=== PATIENT | male | born 1985 | race Caucasian/White ===

== ENCOUNTER 2019-12-19 10:20 | Outpatient (CLI) | payer OTHER, SELFPAY ==
--- NOTE | ~2019-12-19 | XR_ITS ---
EXAMINATION: XR chest 2V DATE: 12/19/2019 10:52 INDICATION: Hemoptysis TECHNIQUE: PA and lateral views of the chest are obtained. COMPARISON: None available FINDINGS: The lungs are free of acute opacities. There is no pleural effusion or pneumothorax. The ca rdiomediastinal silhouette is normal. The visualized bones and soft tissues are unremarkable. IMPRESSION: 1. No acute cardiopulmonary abnormality. Reviewed, dictated and finalized at location A.
[2019-12-19 11:32] LABS: Basophils Absolute Auto 0.1 K/mm3 (0.0-0.1); Basophils Percent Auto 0.4 % (0.2-1.2); Eosinophils Absolute Auto 0.3 K/mm3 (0-0.3); Hematocrit 45.9 % (42.0-52.0); Hemoglobin 15.8 g/dL (14.0-18.0); Immature Granulocyte Absolute 0.11 K/mm3 (0.00-0.031); Immature Granulocyte Percent A 0.7 % (0-0.5); Lymphocytes Absolute Auto 1.98 K/mm3 (0.9-3.2); Lymphocytes Percent Auto 12.7 % (18.3-44.2); Mean Corpuscular HGB Conc 34.4 g/dl (32-36); Mean Corpuscular Hemoglobin 30.1 pg (26-34); Mean Corpuscular Volume 87.4 fl (80-100); Mean Platelet Volume 10.6 fl (7.4-10.4); Monocytes Percent Auto 6.1 % (2.6-8.5); Neutrophils Absolute Auto 12.2 K/mm3 (1.3-6.7); Neutrophils Percent Auto 78.1 % (45.5-73.1); Platelet Count Result 282 k/mm3 (150-375); Red Blood Count 5.25 M/mm3 (4.6-6.20); Red Cell Distribution Width 13.1 % (11.5-14.5); White Blood Count 15.7 K/mm3 (4.5-10.0)
[2019-12-19 11:53] LABS: Potassium 4.1 mmol/L (3.4-5.0)
[2019-12-19 12:02] LABS: Alanine Aminotransferase 23 U/L (4-50); Albumin Level 4.2 g/dL (3.5-5.1); Alkaline Phosphatase 80 U/L (38-126); Anion Gap 8 mmol/L (8-16); Aspartate Amino Transferase 28 U/L (17-59); Bilirubin,Total 0.8 mg/dL (0.2-1.3); Blood Urea Nitrogen 13 mg/dL (9-20); Calcium 9.2 mg/dL (8.4-10.2); Carbon Dioxide 23 mmol/L (22-30); Chloride 108 mmol/L (98-107); Estimated Glomerular Filt Rate > 60; Glucose 107 mg/dL (75-110); Sodium 139 mmol/L (137-145)
== END 2019-12-19 10:21 | disposition home or self-care (01) ==
PROVIDERS: PCP Physician Assistant; Visit Provider Physician Assistant
DX: R04.2 Hemoptysis (principal)
CPT/HCPCS: 36415; 71046; 80053; 85025

== ENCOUNTER 2022-02-19 09:04 | Outpatient (CLI) | payer OTHER, SELFPAY ==
--- NOTE | ~2022-02-19 | CT_ITS ---
EXAMINATION: CT brain wo con DATE: 02/19/2022 09:37 INDICATION: Acute persistent daily headache. TECHNIQUE: Computed tomography (CT) of the head was performed without intravenous contrast. The mA wa s adjusted according to patient size. Iterative reconstruction technique was employed. The dose-lengt h product was 605.33 mGy-cm. COMPARISON: None FINDINGS: There is no intracranial hemorrhage, acute infarction, or abnormal intracranial mass lesion . The ventricles are normal in size. The orbits are normal. There is mild mucosal thickening in the p aranasal sinuses. There are surgical changes of the sinuses. The mastoid air cells are normal. IMPRESSION: 1. Normal brain. Reviewed, dictated and finalized at location A. IMPRESSION: 1. Normal brain.
== END 2022-02-19 09:05 | disposition home or self-care (01) ==
LOC: ANHIMG 09:10
PROVIDERS: PCP Physician Assistant; Visit Provider Physician Assistant
DX: G44.52 New daily persistent headache (NDPH) (principal)
CPT/HCPCS: 70450

== ENCOUNTER 2022-07-02 14:50 | Outpatient (CLI) | payer OTHER, SELFPAY ==
--- NOTE | ~2022-07-02 | XR_ITS ---
XR ankle LT 2V 07/02/2022 15:23 Indication: Left ankle pain after injury Procedure: 2 views left ankle Comparison: No prior studies for comparison. Findings: No fracture, subluxation or dislocation. Ankle mortise intact. There is anatomic alignment. No soft tissue abnormality. No foreign bodies. Impression: 1: No significant bone or joint abnormality Reviewed, dictated and finalized at location A. Impression: 1: No significant bone or joint abnormality
--- NOTE | ~2022-07-02 | XR_ITS ---
EXAMINATION: XR lumbar spine 2-3V DATE: 07/02/2022 15:22 INDICATION: Back muscle spasm post injury TECHNIQUE: Anteroposterior and lateral views of the lumbar spine, and cone-down lateral view of the l umbosacral junction were obtained. COMPARISON: None. FINDINGS: Alignment is normal. Vertebral body and disc heights are normal. Asymmetric mild osteoarthritis at th e left sacroiliac joint. Right sacral iliac joint and visualized portions of the bilateral hip joints are normal. Surgical clips in the left pelvis. IMPRESSION: 1. Mild left sacroiliac osteoarthritis. Normal lumbar spine. Reviewed, dictated and finalized at location B.
== END 2022-07-02 14:51 | disposition home or self-care (01) ==
LOC: ANHIMG 14:58
DX: M25.572 Pain in left ankle and joints of left foot (principal); M53.3 Sacrococcygeal disorders, not elsewhere classified
CPT/HCPCS: 72100; 73600

== ENCOUNTER 2022-09-30 08:28 | Outpatient (CLI) | payer OTHER, SELFPAY ==
--- NOTE | ~2022-09-30 | XR_ITS ---
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 . COMPARISON: None available. FINDINGS: Normal mineralization. No fracture or dislocation. No lytic or blastic lesion. Joint space s are maintained. No erosion or periosteal change. Soft tissues within normal limits. IMPRESSION: No acute osseous finding in the right wrist. Reviewed, dictated and finalized at location K.
== END 2022-09-30 08:29 | disposition home or self-care (01) ==
LOC: ANHIMG 08:30
DX: M25.531 Pain in right wrist (principal)
CPT/HCPCS: 73110

== ENCOUNTER 2023-03-22 06:55 | Outpatient (CLI) | payer OTHER, SELFPAY ==
--- NOTE | ~2023-03-22 | US_ITS ---
US thyroid INDICATION: Thyroid nodule TECHNIQUE: Real-time sonographic images of the thyroid gland were obtained. COMPARISON: No prior studies for comparison. FINDINGS: The right thyroid lobe measures 4.1 x 2.1 x 2.3 cm. The left thyroid lobe measures 3.3 x 1 .3 x 1.9 cm. There is heterogeneous echotexture and echogenicity throughout the thyroid gland. In the right lobe there is an oval hypoechoic mass measuring 1.6 x 1.4 x 1.3 cm. This mass is solid, hypoec hoic, wider than tall, smoothly marginated without echogenic foci, TR 4. Normal vascular flow is pres ent. IMPRESSION: 1. Right thyroid mass measuring 1.6 cm, TR 4. Ultrasound-guided fine-needle aspiration biopsy recomm ended. Reviewed, dictated and finalized at location D. R SPECIALIST IMPRESSION: 1. Right thyroid mass measuring 1.6 cm, TR 4. Ultrasound-guided fine-needle as piration biopsy recommended.
== END 2023-03-22 06:56 | disposition home or self-care (01) ==
LOC: CHSIMG 07:00
PROVIDERS: PCP Physician Assistant; Visit Provider Physician Assistant
DX: E04.1 Nontoxic single thyroid nodule (principal)
CPT/HCPCS: 76536

== ENCOUNTER 2023-05-12 14:48 | Outpatient (CLI) | payer OTHER, SELFPAY ==
--- NOTE | 2023-05-12 | ECHO_ITS ---
Patient Info Name: Freddie Arellano Age: 38 years : 1985 Gender: Male Ht: 71 in Wt: 193 lbs BSA: 2.11 m2 HR: 94 bpm BP: 132 / 83 mmHg Heart Rhythm: Sinus Rhythm Technical Quality: Fair Exam Date: 05/12/2023 2:57 PM Exam Location: Echo Lab Patient Status: Outpatient Admit Date: 05/12/2023 Staff Ordering Physician: Buck, Dane PATEL Attending Provider: Buck, Dane PATEL Referring Physician: Jose ARAIZA; Exam Type: CA echo doppler color flow Study Info Indications Z82.49 - Family history of ischemic heart disease and other diseases of the circulatory system R06.00 - Dyspnea, unspecified Complete two-dimensional, color flow and Doppler transthoracic echocardiogram is performed. Summary 1. Complete two-dimensional, color flow and Doppler transthoracic echocardiogram is performed. 2. Left ventricular chamber dimension is normal. 3. Left ventricular systolic function is normal, estimated at 60-65%. 4. There is mildly increased left ventricular wall thickness. 5. The left ventricular diastolic function is grade I diastolic dysfunction. 6. There is mild tricuspid valve regurgitation. Left Ventricle Left ventricular chamber dimension is normal. Left ventricular systolic function is normal, estimated at 60-65%. There is mildly increased left ventricular wall thickness. The left ventricular diastolic function is grade I diastolic dysfunction. Right Ventricle Right ventricular chamber dimension is normal. Right ventricular systolic function is normal. Left Atria Left atrial chamber dimension is normal. Right Atria Right atrial chamber dimension is normal. Atrial Septum Intact interatrial septum visualized by color flow imaging. Aortic Valve The aortic valve is trileaflet. There is mild aortic valve sclerosis. There is no aortic valve stenosis. There is trace aortic valve regurgitation. Pulmonic Valve The pulmonic valve is normal. There is no pulmonic valve stenosis. There is trace pulmonic regurgitation. Mitral Valve The mitral valve has normal leaflets. There is no mitral valve stenosis. There is trace mitral valve regurgitation. Tricuspid Valve The tricuspid valve leaflets are normal. There is no significant tricuspid valve stenosis. There is mild tricuspid valve regurgitation. Pericardium/Pleural The pericardium appears normal. There is no pericardial effusion. Inferior Vena Cava Normal inferior vena cava with >50% collapse upon inspiration consistent with normal right atrial pressure, 5 mmHg. Aorta The aortic root size at the sinus of Valsalva is normal. Left Ventricular Outflow Tract Name Value Normal LVOT 2D LVOT Diameter 2.0 cm LVOT Doppler LVOT Peak Gradient 5 mmHg LVOT Mean Gradient 2 mmHg LVOT VTI 17 cm LVOT VTI/AV VTI Ratio 0.7 LVOT Stroke Volume 56 ml LVOT CO 5.0 l/min LVOT CI 2.4 l/min/m2 Pulmonic Valve Name Value
== END 2023-05-12 14:49 | disposition home or self-care (01) ==
PROVIDERS: PCP Physician Assistant; Visit Provider Physician Assistant
DX: J45.50 Severe persistent asthma, uncomplicated (principal); R93.1 Abnormal findings on diagnostic imaging of heart and coronary circulation; I07.1 Rheumatic tricuspid insufficiency
CPT/HCPCS: 93306

== ENCOUNTER 2024-07-21 01:03 | Emergency (ER) | payer OTHER, SELFPAY ==
--- OUTSIDE RECORDS SUMMARY | 2024-07-21 01:05 | XMS_ITS | Clinical Summary ---
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
--- OUTSIDE RECORDS SUMMARY | 2024-07-21 01:05 | XMS_ITS | Clinical Summary ---
Author Organization [facility] Address [address] [place] [address] Care Team Providers Care Manager Diesel Name Role Phone Dane Jane Primary Care Provider [phone] Allergies Active Allergy Reactions Criticality Noted Date Comments Diphenhydramine Shortness of Breath High 12/05/2018 Penicillins Hives,Unknown Medium 07/17/2018 Sulfa Antibiotics Unknown 07/17/2018 Sulfacetamide Sodium-Sulfur Unknown 12/06/19 19 Medications albuterol sulfate HFA (PROAIR HFA) 108 (90 Base) MCG/ACT inhaler Inhale 2 puffs into the lungs every 4 (four) hours as needed for Shortness of breath or Wheezing. 9 Active tamsulosin 0.4 MG Cap TK 1 C PO AT THE SAME TIME QD AND PC 0 Active nicotine polacrilex 2 MG gum CHEW ONE PIECE PRN TO QUIT SMOKING 0 Active Nebulizers (VIOS AEROSOL DELIVERY SYSTEM) [facility] 9 Active ipratropium-albu terol 0.5-2.5 (3) MG/3ML Solution U 3 ML VIA NEB Q 4 TO 6 H PRN 9 Active dicyclomine 20 MG tablet Take 20 mg by mouth daily. 0 Active ALPRAZolam 1 MG tablet Take 1 mg by mouth 2 (two) times daily. 0 Active sildenafil 50 MG tablet Take 50 mg by mouth. 0 Active LEVOTHYROXINE 150 MCG tabletIndication s:Hypothyroidism , unspecified type TAKE 1 TABLET(150 MCG) BY MOUTH EVERY MORNING 30 tablet 1 0 Active HYDROcodone-acet aminophen (NORCO) 5-325 MG tabletIndication s:Acute Pain < 3 Day Supply Take 1 tablet by mouth every 6 (six) hours as needed for Pain. Indications: Acute Pain < 3 Day Supply 4 tablet 3 Active Active Problems Problem Noted Date Diagnosed Date BMI 21.0-21.9, adult 06/08/2019 Overview (10/10/2019): Last Assessment & Plan: BMI is okay. Normal range is 18-25 and overweight is 25-30. Continue to work on eating healthy and exercising at least 150 minutes per week. Health maintenance examination 06/08/2019 Overview (10/10/2019): PMH: 06/08/2019 Last colonoscopy/cologuard: 03/2019 Last tdap: 11/10/2018 Last Prevnar/pneumovax:2019 Last Shingrix: Last eye exam: Last Assessment & Plan: PMH: 06/08/2019 Last colonoscopy/cologuard: 03/2019 Last tdap: 11/10/2018 Last Prevnar/pneumovax:2018 Last Shingrix: Last eye exam: Requested record Acute kidney injury 05/03/2019 Complication of surgical procedure 05/03/2019 Other hydronephrosis 05/03/2019 Left flank pain 05/03/2019 Hydroureter 05/03/2019 Cystic fibrosis ([facility]) 03/21/2019 Overview (10/10/2019): Last Assessment & Plan: Followed by pulmonary Hemoptysis 10/10/2018 JONES (dyspnea on exertion) 07/17/2018 Cough 07/17/2018 Snoring 07/17/2018 PND (paroxysmal nocturnal dyspnea) 07/17/2018 Witnessed episode of apnea 07/17/2018 Generalized anxiety disorder 07/17/2018 Overview (10/10/2019): Last Assessment & Plan: I explained to patient I would refill the Xanax at 1 mg b.i.d. only until we can get him to see a psychiatrist. Patient needs to not use the medical marijuana while taking the Xanax. Requested records from [place] and [place] I Anxiety 04/07/2018 Syncope and collapse 04/07/2018 Tobacco use 02/10/2018 Overview (10/10/2019): Last Assessment & Plan: Quitting smoking is one of the most important things you can do for your health. Contact 2-222-AGCH-NOW or www.smokefree.gov for more information. Irritable bowel syndrome 02/10/2018 Overview (10/10/2019): Last Assessment & Plan: Stable continue meds Panlobular emphysema ([facility]) 8 Overview (10/10/2019): Last Assessment & Plan: Followed by pulmonary Immunizations Name Administration Dates Next Due Influenza (Generic) 02/10/2018 Influenza Adult (Generic) 01/22/2019 Tdap (Adacel) 11/10/2018 Tdap (Generic) 11/10/2018 Family History Medical History Relation Comments Colon Cancer Father Lung Disease Maternal Grandmother COPD Mother Relation Status Comments Father Maternal Grandmother Mother Alive Social History Tobacco Use Types Packs/Day Years Used Date Smoking Tobacco: Every Day Cigarettes 0.3 26.3 Started: 1998 Smokeless Tobacco: Never Tobacco Cessation:Ready to Q uit: Not Asked; Counseling Given: Not Answered Alcohol Use Standard Drinks/Week Comments No 0 (1 standard drink = 0.6 oz pur e alcohol) AUDIT-C Answer Date Recorded Frequency of Alcohol Consumption Never 07/17/2018 Average Number of Drinks Not on file 019 Frequency of Binge Drinking Not on file 04/2018 Sex and Gender Information Value Date Recorded Sex Assigned at Not on file Legal Sex Male 7:21 PM CDT Gender Identity Not on file Sexual Orientation Not on file Last Filed Vital Signs Vital Sign Reading Time Taken Comments Blood Pressure 120/60 08/13/2023 1:04 PM CDT Pulse 84 08/13/2023 1:04 PM CDT Temperature 36.7 C (98.1 F) 08/13/2023 11:31 AM CDT Respiratory Rate 18 08/13/2023 1:04 PM CDT Oxygen Saturation 99% 08/13/2023 1:04 PM CDT Inhaled Oxygen Concentration - - Weight 83.5 kg (184 lb) 08/13/2023 11:31 AM CDT Height 180.3 cm (5' 11 ) 08/13/2023 11:31 AM CDT Body Mass Index 25.66 08/13/2023 11:31 AM CDT Plan of Treatment Health Maintenance Due Date Last Done Comments Annual Physical 1986 Hepatitis C 2001 Hepatitis B Vaccines (1 of 3 - 19+ 3-dose series) 2002 Pneumococcal Vaccine: Pediatrics (0 to 5 Years) and At-Risk Patients (6 to 64 Years) (2 of 2 - PPSV23 or PCV20) 12/11/2017 10/16/2017 COVID-19 Vaccine (3 - 2023-2 5 season) 2023 09/29/2020, 09/05/2020 Influenza Adult (#1) 2024 02/03/2021, 01/22/2019, 02/10/2018 DTaP, Tdap and Td Vaccines ( 3 - Td or Tdap) 11/10/2028 11/10/2018, 11/10/2018 HPV Vaccines Aged Out No longer eligi ble based on patient's age to complete this topic Meningococcal B Vaccine Aged Out No l onger eligible based on patient's age to complete this topic Meningococcal Vaccine Aged Out No tess tommy eligible based on patient's age to complete this topic RSV Immunizations Under 20 Months Aged Out No longer eligible b ased on patient's age to complete this topic Insurance HURST Member Subscriber Plan / Payer (Ef fective 2019-Present) Name:Freddie Garcia Relation to Subscriber:Self Name:Freddie Garcia Payer ID:[id number] (NAIC) Group ID:Not on file Type:Not on file Address: [place] [id number] Advance Directives Documents on File Type Date Recorded 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 FOR HB BILLS FOR MEDHAT FOR [employer] Legal Documents 07/15/2020 10:09 AM RECVD & CMPLTD ATTY REQ. FOR HB BILLS FOR MEDHAT FOR [employer] Care Teams Manager Diesel Relationship Specialty Start Date End Date Dane Jane PA [address] [place] [address] PCP - General PHYSICIAN DIESEL LOCOMOTIVE FIRER 10/21/20
--- OUTSIDE RECORDS SUMMARY | 2024-07-21 01:05 | XMS_ITS | Clinical Summary ---
Author Organization [facility] Address [address], [place] [address] Phone Care Team Providers Care Male Model Name Role Phone Dane Jane Primary Care Provider [phone] Allergies Active Allergy Reactions Criticality Noted Date Comments Penicillins Unknown 12/19/2018 Sulfa Antibiotics Unknown 12/19/2018 Medications dicyclomine (BENTYL) 10 MG Capsule TK 1 C PO TID 3 05/10/2018 Active levothyroxine (SYNTHROID) 75 MCG Tablet TK 1 T PO QD IN THE MORNING OES 3 05/06/2018 Active propranolol (INDERAL) 10 MG Tablet TK 2 TS PO TID 0 08/04/2018 Active buPROPion SR (WELLBUTRIN SR) 150 MG TABLET SR 12 HR Take 150 mg by mouth 2 times daily. Active fluticasone (FLONASE) 50 MCG/ACT Suspension 1-2 Sprays by Nasal route daily. Use in each nostril as directed. Active Cetirizine HCl (ZYRTEC PO) Take by mouth. 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 Gender Identity Not on file Sexual Orientation Not on file Last Filed Vital Signs Vital Sign Reading Time Taken Comments Blood Pressure - - Pulse - - Temperature - - Respiratory Rate - - Oxygen Saturation - - Inhaled Oxygen Concentration - - Weight - - Height 180.3 cm (5' 11 ) 12/19/2018 11:32 AM CDT Body Mass Index - - Plan of Treatment Health Maintenance Due Date Last Done Comments Hepatitis C Virus (HCV) Screening 1985 Hepatitis B Immunization (1 of 3 - 19+ 3-dose series) 2002 Influenza Immunization (#1) 12/18/202301/16, 01/22/2019, 02/10/2018 SARS-COV-2 Immunization (2023- season) 2023 09/29/2020, 09/05/2020 Respiratory Syncytial Virus (RSV) Immunization (Adult) (1 - 1-dose 75+ series) 2058 Pneumococcal Immunization Combined Aged Out 10/16/2017 No longer eligible based on patient's age to complete this topic DTaP/Tdap/Td Immunization Discontinued 11/10/2018 TdaP Immunization Completed 11/10/2018 Meningococcal Immunization (ACWY) Aged Out No longer eligible based on patient's age to complete this topic Rotavirus Immunization Aged Out No lo nger eligible based on patient's age to complete this topic Insurance MEDICAID [employer] Care Teams Male Model Relationship Specialty Start Date End Date Dane Jane PAC [address] [place] [address] PCP - General Physician Substance Abuse Prevention Coordinator 05/01/21
--- OUTSIDE RECORDS SUMMARY | 2024-07-21 01:05 | XMS_ITS | Encounter Summary ---
Author Organization [facility] Health Address [address] [place] [address] Care Team Providers Care Rn Clinical Trials Name Role Phone Anali Mccann APRN-ASSOCIATE DOCTOR Primary Care Provider + Anali Mccann APRN-ASSOCIATE DOCTOR Primary Care Provider + Dane Jane Primary Care Provider [phone] Reason for Visit * Reason Onset Date Comments Instructions 03/30/2019 Left VM message for withholding respiratory medications prior to Methacholine Challenge testing - VGall; CPFT; ACCESS SERVICES REPRESENTATIVE Encounter Details Date Type Department Care Team (Late st Contact Info) Description 03/30/2019 Telephone [facility] [address] [place] [id number] Argelia Oden RCP Instructions (Left VM message for withholding respiratory medications prior to Methacholine Challenge testing - VGall; CPFT; ACCESS SERVICES REPRESENTATIVE) Social History Tobacco Use Types Packs/Day Years Used Date Smoking Tobacco: Smoker, Current Status Unknown Cigarettes Smokeless Tobacco: Never Comments:1 pack a week Alcohol Use Standard Drinks/Week Comments No 0 (1 standard drink = 0.6 oz pur e alcohol) Sex and Gender Information Value Date Recorded Sex Assigned at Male 04/05/2022 9:34 PM PART TIME RECEPTIONIST Gender Identity Male 04/05/2022 9:34 PM PART TIME RECEPTIONIST Sexual Orientation Straight 04/05/2022 9: 34 PM PART TIME RECEPTIONIST documented as of this encounter Plan of Treatment Not on file documented as of this encounter Visit Diagnoses Not on filedocumented in this encounter Care Teams Rn Clinical Trials Relationship Specialty Start Date End Date Anali Mccann APRN-CNP PCP - General 01/12/19 12/24/19 Anali Mccann APRN-CNP [address] [place] [address] PCP - General 12/25/19 01/17/20 Dane Jane PA [address] [place] [address] PCP - General 01/18/20 documented as of this encounter
--- OUTSIDE RECORDS SUMMARY | 2024-07-21 01:05 | XMS_ITS | Continuity of Care Document ---
Author Organization [facility] Address [address] [place] [address] Phone Care Team Providers Care Curator Name Role Phone Lisa Boyd MD Unavailable Unavailabl e Allergies, Adverse Reactions, Alerts Substance Reaction Status Criticality Sulfa (Sulfonamide Antibiotics) Other Active No Information Penicillins Other Active No Information Advance Directives Directive Yes / No Effective Date File Name No Information Encounters Encounter Description Practice Location Reason(s) For Visit Diagnoses Date Provider Providers Copied on Encounter [facility], [address], [place], [place], [id number], tel:[phone] [facility] No Information Oliver Gonzalez. [address], [id number]. tel:[phone] [facility], [address], [place], [place], [id number], tel:[phone] [facility] DIARRHEA Oliver Gonzalez. [address], [id number]. tel:[phone] Family History Family Member Type Diagnosis Age At Onset No Information Payers Payer name Insurance type Covered republican [...]
--- OUTSIDE RECORDS SUMMARY | 2024-07-21 01:05 | XMS_ITS | Encounter Summary ---
Author Organization [facility] Health Address [address] [place] [place] [address] Care Team Providers Care Contour Path Tape Mill Operator Name Role Phone Dane Jane Primary Care Provider Reason for Visit * Reason Onset Date Comments Order 02/22/2020 Encounter Details Date Type Department Care Team (Late st Contact Info) Description 02/22/2020 Telephone [facility] [address] [place] [id number] Ru Livingston MD [address] OF [address]MON[facility] [address] Order Social History Tobacco Use Types Packs/Day Years Used Date Smoking Tobacco: Some Days Cigarettes 0.1 25.3 Started: 1999 Smokeless Tobacco: Never Comments:2-3 cigarettes a da y at most Alcohol Use Standard Drinks/Week Comments No 0 (1 standard drink = 0.6 oz pur e alcohol) Sex and Gender Information Value Date Recorded Sex Assigned at Male 04/05/2022 9:34 PM CLOTH CUTTER Gender Identity Male 04/05/2022 9:34 PM CLOTH CUTTER Sexual Orientation Straight 04/05/2022 9: 34 PM CLOTH CUTTER documented as of this encounter Functional Status Functional Status Response Date of Assess ment Is person deaf or have serious hearing difficult y? No 05/06/2019 Is person blind or have serious difficulty seein g? No 05/06/2019 Does person have serious dif ficulty walking/climbing stairs? Yes 05/06/2019 Does person have difficulty dressing/bathing? No 05/06/2019 Does person have difficulty doing errands alone? Yes 05/06/2019 Cognitive Status Response Date of Assessm ent Does person have difficulty concentrating/remembering/making decisions? No 05/06/2019 documented as of this encounter Miscellaneous Notes * Telephone Encounter - Ru Livingston MD - 02/22/2020 2:44 PM CLOTH CUTTER PATIENT COMMUNICATION NOTE Dear Ms. Sullivan: Please let Mr. Freddie Arellano know that I have ordered him a home sleep apnea test instead of an in-laboratory PSG. He has a history of cystic fibrosis but his spirometry (lung function) was still within normal limits, so a home sleep apnea test should be an appropriate first diagnostic step. Please let me know if there is anything else I can assist you with. Take care, Ru Livingston MD, [facility], [facility], [facility] Polishing Pad Mounter, [facility] Professor of Internal Medicine Adjunct Problem Manager of Neurology Division of Pulmonary, Critical Care, and Sleep Medicine [facility] ===View-only below this line=== ----- Message ----- From: Gwendolyn Sullivan Sent: 02/22/2020 2:16 PM CLOTH CUTTER To: Ru Livingston MD H CUTTER * Telephone Encounter - Gwendolyn Sullivan - 02/22/2020 2:15 PM CST Patient is asking if he can preform an HSt instead of a PSG? H CUTTER documented in this encounter Plan of Treatment Not on file documented as of this encounter Visit Diagnoses Not on filedocumented in this encounter Care Teams Contour Path Tape Mill Operator Relationship Specialty Start Date End Date Dane Jane PA [address] [place] [address] PCP - General 01/18/20 documented as of this encounter
--- OUTSIDE RECORDS SUMMARY | 2024-07-21 01:05 | XMS_ITS | Clinical Summary ---
Author Organization [facility] [email or web address] Address [address] [place] [address] Care Team Providers Care Railcar Switcher Name Role Phone Dane Jane Primary Care Provider [phone] Source Comments [facility],non-owned Affiliates and Associated Physician Practices is amultiple site organization consisting of ambulatory clinics and hospital sitesin [place], [place], [place] and [place]. This disclosure is being madepursuant to the Care Everywhere program and may not contain all information available regarding this patient. Last updated 18.[facility] Allergies Active Allergy Reactions Criticality Noted Date Comments Food Shortness of Breath High 05/11/2023 onions Penicillins Urticaria,Unknown Medium 07/17/2018 Sulfa Drugs Unknown 07/17/2018 Sulfacetamide Sodium-Sulfur Unknown 12/06/19 19 Medications * Be aware that medications may not be up to date on this document. Alwaysverify current medications with the patient. Medication Sig Dispensed Refills Start Date End Date Status ALPRAZolam (XANAX) 1 MG tablet Take 1 (one) tablet by mouth 2 times daily 06/08/2019 Active EPINEPHrine (EPIPEN) 0.3 MG/0.3ML auto-injector pen Inject 0.3 mL into muscle once as needed 07/20/2019 Active naproxen (Naprosyn) 500 MG tablet Take 1 (one) tablet by mouth 2 times daily Active gabapentin (Neurontin) 300 MG capsuleIndication s:Paresthesia,Num bness in feet,Numbness in both hands,Migraine without aura and without status migrainosus, not intractable,Daily headache Take 1 (one) capsule by mouth at bedtime 30 capsule 5 01/23/2024 Active Additional Information Patient not taking.Reported on 07/12/2024 levothyroxine (Synthroid) 112 MCG tablet Take 1 (one) tablet by mouth once daily 03/21/2024 03/21/2025 Active ALPRAZolam (Xanax) 2 MG tablet Take 1 (one) tablet by mouth 2 times daily as needed 02/27/2024 Active omeprazole (PriLOSEC) 20 MG capsule Take 1 (one) capsule by mouth once daily 30 capsule 03/30/2024 Active Additional Information Patient not taking.Reported on 07/12/2024 sildenafil (Viagra) 100 MG tablet TAKE 1 TABLET BY MOUTH EVERY DAY NEEDED FOR ERECTILE DYSFUNCTION 30 tablet 05/10/2024 Active topiramate (Topamax) 50 MG tabletIndications :Chronic daily headache Take 1 (one) tablet by mouth at bedtime 30 tablet 4 05/25/2024 Active Active Problems Problem Noted Date Diagnosed Date Chest pain 06/02/2023 Severe persistent asthma without complication Hydroureter 05/03/2019 Complication of surgical procedure 05/03/2019 Left flank pain 05/03/2019 Acute kidney injury 05/03/2019 Other hydronephrosis 05/03/2019 Hemoptysis 10/10/2018 Tobacco use 07/17/2018 Witnessed episode of apnea 07/17/2018 PND (paroxysmal nocturnal dyspnea) 07/17/2018 JONES (dyspnea on exertion) 07/17/2018 Anxiety and depression 07/17/2018 Anxiety 04/07/2018 Syncope and collapse 04/07/2018 Irritable bowel syndrome 04/07/2018 Hyperthyroidism 04/07/2018 Nasal septal deviation Nasal turbinate hypertrophy Nasal obstruction Chronic ethmoidal sinusitis Resolved Problems Problem Noted Date Diagnosed Date Resolved Date Cystic fibrosis 03/21/2019 08/19/2020 Chronic bronchitis with prod uctive mucopurulent cough 10/10/2018 12/04/2018 Pulmonary emphysema 04/07/2018 12/25/19 20 Cough 04/07/2018 04/02/2019 Encounters Date Type Department Care Team Description 07/19/2024 3:30 PM CDT Office Visit [facility] - Urology [address] [place] [address] Rd [address] [place] [address] Mary Acuna, CATY-STARLA Erectile dysfunction, unspecified erectile dysfunction type (Primary Dx) 07/19/2024 Travel 07/12/2024 8:00 AM CDT Office Visit [facility] - Urology [address] [facility] [address] [place] [address] Klaudia Cho DO Decreased sensation (Primary Dx); Erectile dysfunction, unspecified erectile dysfunction type; Pain in right testicle 07/12/2024 7:30 AM CDT - 07/12/2024 11:59 PM CDT Hospital Encounter [facility] [address] [place] [address] Klaudia Cho DO Urology Discharge Disposition: Home or Self Care 07/12/2024 Travel 05/25/2024 12:05 PM INSURANCE POLICY CLERK - 05/25/2024 11:59 PM INSURANCE POLICY CLERK Hospital Encounter [facility] DRAW [facility] [address] [place] [address] Lisa Mercado, HEAD OPERATOR-WOOD STAINER Discharge Disposition: Home or Self Care 05/25/2024 12:04 PM INSURANCE POLICY CLERK Hospital Encounter [facility]IC RAD OP [facility] [place] [address] iLsa Mercado, HEAD OPERATOR-WOOD STAINER Discharge Disposition: Home or Self Care 05/25/2024 11:30 AM INSURANCE POLICY CLERK Office Visit [facility] - Neurology [address] [place] [phone] Lisa Mercado HEAD OPERATOR-WOOD STAINER Delmy Renee, HEAD OPERATOR-WOOD STAINER Chronic daily headache (Primary Dx); Rebound headache; Medication overuse headache 05/25/2024 11:00 AM INSURANCE POLICY CLERK Office Visit [facility] - Neurosurgery [address] [place] [phone] Lisa Mercado, HEAD OPERATOR-WOOD STAINER Kristopher Betancourt MD Cervical disc herniation (Primary Dx); Chronic neck pain 05/25/2024 Travel 05/10/[address] [facility] - [facility]rology [address] [facility] [place] [address] Klaudia Cho DO Refill Request from Last 3 Months Immunizations Name Administration Dates Next Due Covfelihsa Ocean Aero primary monoval ent 12+ yr 0.3mL Purple cap 09/29/2020,09/05/2020 INFLUENZA VACCINE 02/10/2018 INFLUENZA VACCINE, HIGH-DOSE , TRIV. (FLUZONE HIGH-DOSE TRIVALENT; 65Y+) (HD-IIV3) 01/23/2024 INFLUENZA VACCINE, QUADR. (A FLURIA, FLUZONE QUADRIVALENT; 6MO+) (IIV4) 02/03/2021 INFLUENZA VACCINE, QUADR. (F LUZONE; FLULAVAL; FLUARIX; AFLURIA QUADRIVALENT; 6MO+), 0.5 ML (IIV4) 01/22/2019 PNEUMOCOCCAL PCV20 CONJ VAC IM 01/23/2024 Pneumococcal Pcv13 Conj 10/16/2017 TDAP (7yrs+) 11/10/2018 Family History Medical History Relation Name Comments Thyroid Disease Brother Hypothyroidi sm Cancer - Colon Father Cancer - Prostate Father Cancer Mother Thyroid Other - Cardiac Sister Relation Name Status Comments Brother Alive Father Other Mother Alive Sister Alive Social History Tobacco Use Types Packs/Day Years Used Date Smoking Tobacco: Some Days Cigarettes 0.1 25.3 Started: 1999 Smokeless Tobacco: Never Tobacco Cessation:Ready to Q uit: Yes; Counseling Given: Yes Comments:1 pack of cigs last about a week and a half Alcohol Use Standard Drinks/Week Comments No 0 (1 standard drink = 0.6 oz pur e alcohol) AUDIT-C Answer Date Recorded Q1: How often do you have a drink containing alcohol? Never 05/23/2023 Q2: How many drinks containi ng alcohol do you have on a typical day when you are drinking? Patient does not drink Q3: How often do you have si x or more drinks on one occasion? Never 05/23/2023 Sex and Gender Information Value Date Recorded Sex Assigned at Male 04/05/2022 9:34 PM INSURANCE POLICY CLERK Gender Identity Male 04/05/2022 9:34 PM INSURANCE POLICY CLERK Sexual Orientation Straight 04/05/2022 9: 34 PM INSURANCE POLICY CLERK Last Filed Vital Signs Vital Sign Reading Time Taken Comments Blood Pressure 118/76 07/19/2024 3:49 PM CDT Pulse 68 07/19/2024 3:49 PM CDT Temperature 36.8 C (98.3 F) 07/19/2024 3:49 PM CDT Respiratory Rate 18 07/19/2024 3:49 PM CDT Oxygen Saturation 96% 07/19/2024 3:49 PM CDT Inhaled Oxygen Concentration 21% 05/23/2023 5 :30 PM INSURANCE POLICY CLERK Weight 82.1 kg (181 lb) 07/19/2024 3:49 PM CDT Height 180.3 cm (5' 11 ) 07/19/2024 3:49 PM CDT Body Mass Index 25.24 07/19/2024 3:49 PM CDT Plan of Treatment Health Maintenance Due Date Last Done Comments HIV SCREENING 1998 HEPATITIS C SCREENING 04/25/2001 HEPATITIS B VACCINE (1 of 3 - 19+ 3-dose series) 2002 COVID-19 VACCINE (2023- season) 2023 09/29/2020, 09/05/2020 DEPRESSION SCREENING 04/18/2024 LIPID TESTING 11/22/2024 11/23/2019, 11/23/2019 SCREENING FOR DIABETES 01/30/2027 , 03/05/2020, 05/07/2019, Additional history exists DTAP/TDAP/TD VACCINES (2 - Td or Tdap) 11/10/2028 11/10/2018 ZOSTER VACCINE (1 of 2) 2033 INFLUENZA VACCINE Completed 01/23/2024, , 01/22/2019, Additional history exists PNEUMOCOCCAL VACCINE Completed 01/23/2024, 10/17/19 18 HIB VACCINE Aged Out No longer eligi ble based on patient's age to complete this topic HPV VACCINE Aged Out No longer eligi ble based on patient's age to complete this topic MENINGOCOCCAL (Group B) VACCINE SHARED DECISION-MAKING Aged Out No longer eligible based on patient's age to complete this topic MENINGOCOCCAL GROUPS A/C/Y/W VACCINE Aged Out No longer eligible based on patient's age to complete this topic Medical Devices Implanted Type Area Aircraft Captain Device Identifier Shelf Expiration Date Model / Serial / Lot Stent Uret 6fr 28cm Pgtl Crv Tpr Tip Implanted:Qty: 1 on 05/05/2019 by Klaudia Cho DO at [facility] Left: Dwayne Ulloa Scimed 03/04/2022 [id number] / / [id number] Procedures Procedure Name Priority Date/Time Associated Diagnosis Comments [place] INJECT CORPORA CAVERN,PHARM AGNT Routine 07/19/2024 4:19 PM CDT Erectile dysfunction, unspecified erectile dysfunction type TESTOSTERONE TOTAL Routine 07/12/2024 7: 43 AM CDT Erectile dysfunction, unspecified erectile dysfunction type XR CERVICAL SPINE 4 OR 5VW Routine 05/25/2024 12:22 PM INSURANCE POLICY CLERK Cervical disc herniation T4 FREE Routine 05/25/2024 12:09 PM INSURANCE POLICY CLERK Nasal turbinate hypertrophy TSH REFLEX FREE T4 Routine 05/25/2024 12 :09 PM INSURANCE POLICY CLERK Nasal turbinate hypertrophy HEMOGLOBIN A1C Routine 01/31/2024 2:46 PM CDT Paresthesia Numbness in feet Numbness in both hands Migraine without aura and without status migrainosus, not intractable Daily headache from Last 3 Months or Most Recently Relevant to Health Maintenance Results * [place] INJECT CORPORA CAVERN,PHARM AGNT (07/19/2024 4:19 PM CDT) Narrative Mary Acuna APRN-CNP - 07/19/2024 4:19 PM CDT Mary Acuna APRN-CNP 07/19/2024 4:20 PM Patient here to start trimix injection therapy. We reviewed risks and benefits and safety issues regarding trimix. Procedure: The penis was prepped with alcohol. An insulin syringe was was to inject 0.15cc of trimix. Patient had a partial response after 5-10 minutes. Continue with trimix prn sex. Inject 0.2ml. Patient taught how to inject and given instruction manual. He knows to return to ER with painful erections lasting longer than 4 hours. Mary T Acuna, HEAD OPERATOR-WOOD STAINER Mary Acuna HEAD OPERATOR-WOOD STAINER PROCEDURE/MINOR SURGICAL ORDERABLES * TESTOSTERONE TOTAL (07/12/2024 7:43 AM CDT) Testosterone 552 240 - 871 ng/dL 07/12/2024 8:41 AM CDT [facility] Blood BLOOD SPECIMEN / Unknown Lab Venipuncture / Unknown 07/12/2024 7:43 AM CDT 07/12/2024 7:44 AM CDT Klaudia Edyta Cho DO LAB - CHEMISTRY OR DERABLES [facility] [address] [place] [place] [id number] * XR Cervical Spine 4 or 5Vw (05/25/2024 12:22 PM INSURANCE POLICY CLERK) Anatomical Region Laterality Modality Spine Digital Radiogra phy 05/25/2024 2:57 PM INSURANCE POLICY CLERK Impressions 05/25/2024 2:58 PM INSURANCE POLICY CLERK IMPRESSION: No acute fracture or dislocation. > Interpreting Provider: Lázaro Palma on 05/25/2024 2:58 PM Narrative 05/25/2024 2:58 PM INSURANCE POLICY CLERK PROCEDURE: XR CERVICAL SPINE 4 OR 5VW DATE/TIME OF EXAM: 05/25/2024 12:22 PM CLINICAL INFORMATION: None relevant/not provided if blank. Indication: M50.20: Cervical disc herniation Additional History: COMPARISON: None. TECHNIQUE: AP view of the cervical spine and lateral views of the cervical spine in flexion and extension and neutral views obtained. FINDINGS: Straightening of cervical spine noted. Vertebral body heights are maintained. Vertebral body alignment is within normal limits. No acute fracture or prevertebral soft tissues are within normal limits. Posterior paraspinal soft tissues within normal limits. Procedure Note Lázaro Palma MD - 05/25/2024 PROCEDURE: XR CERVICAL SPINE 4 OR 5VW DATE/TIME OF EXAM: 05/25/2024 12:22 PM CLINICAL INFORMATION: None relevant/not provided if blank. Indication: M50.20: Cervical disc herniation Additional History: COMPARISON: None. TECHNIQUE: AP view of the cervical spine and lateral views of the cervical spine in flexion and extension and neutral views obtained. FINDINGS: Straightening of cervical spine noted. Vertebral body heights are maintained. Vertebral body alignment is within normal limits. No acute fracture or prevertebral soft tissues are within normal limits.Posterior paraspinal soft tissues within normal limits. IMPRESSION: No acute fracture or dislocation. > Interpreting Provider: Lázaro Palma on 05/25/2024 2:58 PM Lisa Mercado HEAD OPERATOR-WOOD STAINER DIAGNOSTIC I MAGING ORDERABLES * (ABNORMAL) TSH REFLEX FREE T4 (05/25/2024 12:09 PM INSURANCE POLICY CLERK) Pathologist [facility] TSH 51.202(H) 0.350 - 4.940 uIU/mL 05/25/2024 1:44 PM INSURANCE POLICY CLERK [facility] Blood BLOOD SPECIMEN / Unknown Lab Venipuncture / Unknown 05/25/2024 12:09 PM INSURANCE POLICY CLERK 05/25/2024 12:58 PM INSURANCE POLICY CLERK Rodney Howard MD LAB - CHEMISTRY DIRK [facility] [address] [address], [facility] [phone] * T4 FREE (05/25/2024 12:09 PM INSURANCE POLICY CLERK) [facility] T4 Free 0.7 0.7 - 1.5 ng/dL 05/25/2024 2:18 PM INSURANCE POLICY CLERK [facility] Blood BLOOD SPECIMEN / Unknown Lab Venipuncture / Unknown 05/25/2024 12:09 PM INSURANCE POLICY CLERK 05/25/2024 12:58 PM INSURANCE POLICY CLERK Rodney Howard MD LAB - CHEMISTRY DIRK [facility] [address] [address], [facility] [phone] * HEMOGLOBIN A1C (01/31/2024 2:46 PM CDT) [facility] Hemoglobin A1c 5.4 <=5.6 % 02/01/2024 9:30 AM CDT [facility] Estimated Average Glucose 108 mg/dL 02/01/2024 9:30 AM CDT [facility] Comment: HbA1c Interpretation: Normal : < 5.7% Pre-diabetes: 5.7-6.4% Diabetes: Equal to or greater than 6.5% Test results diagnostic of diabetes should be repeated for confirmation. Treatment target values recommended by ADA and other clinical organizations should be used to evaluate metabolic control in patients. Reference: [place] [employer], Standards of Care in Diabetes -2020 In patients 70 years and older consider HbA1c target range of 7.0-7.5% (Reference: Rajinder Alejandre et al. JAMDA. 2012) The Sebia assay for the measurement of HbA1c is a National Glycohemoglobin Standardization Program (NGSP) certified method. Blood BLOOD SPECIMEN / Unknown Lab Venipuncture / Unknown 01/31/2024 2:46 PM CDT 01/31/2024 3:53 PM CDT Delmy Renee HEAD OPERATOR-WOOD STAINER LAB - CHEMISTR Y ORDERABLES [facility] [address] [place] [address], [facility] [phone] from Last 3 Months or Most Recently Relevant to Health Maintenance Advance Directives * Full Code (Latest Code Status on File) Date Activated Date Inactivated Comments 05/03/2019 4:23 PM 05/07/2019 4:38 PM Care Teams Railcar Switcher Relationship Specialty Start Date End Date Dane Jane PA [address] [place] [address] PCP - General 01/18/20
--- OUTSIDE RECORDS SUMMARY | 2024-07-21 01:05 | XMS_ITS | Clinical Summary ---
Author Organization [facility] Jose L at [facility] [place] Address [address] [place] [address] Care Team Providers Care Instructional Systems Design Consultant Name Role Phone Roge Izaguirre MD Unavailable [phone] Emilio Mckeon MD Unavailable [phone] Klaudia Cho DO Unavailable Dane Jane Primary Care Provider [phone] Allergies Active Allergy Reactions Criticality Noted Date Comments Diphenhydramine Hcl Shortness of breath High 019 Penicillins Urticaria Medium 07/17/2018 Sulfacetamide Sodium-Sulfur Unknown 12/06/19 19 Medications albuterol HFA (PROVENTIL HFA,VENTOLIN HFA,PROAIR HFA) 90 mcg/actuation inhaler Inhale 2 puffs every 4 (four) hours as needed 9 Active ALPRAZolam (XANAX) 1 mg tablet Take 1 tablet (1 mg total) by mouth 2 (two) times a day 60 tablet 0 Active sildenafiL (VIAGRA) 100 mg tabletIndication s:Erectile Dysfunction Take 1 tablet (100 mg total) by mouth as needed for erectile dysfunction 30 tablet [address] (PROTONIX) 40 mg EC tabletIndication s:dysphagia Take 1 tablet (40 mg total) by mouth daily 30 tablet 3 Active gabapentin (NEURONTIN) 300 mg capsule Take 1 capsule (300 mg total) by mouth nightly 4 Active levothyroxine (SYNTHROID) 137 mcg tablet Take 1 tablet (137 mcg total) by mouth daily 30 tablet 11 5 05/28/19 26 Active Active Problems Problem Noted Date Diagnosed Date Dysphagia, unspecified type 04/05/2023 Severe persistent asthma without complication Generalized anxiety disorder 06/08/2019 Assessment & Plan (06/08/2019 10:05 AM SENIOR RESEARCH ENGINEER): I explained to patient I would refill the Xanax at 1 mg b.i.d. only until we can get him to see a psychiatrist. Patient needs to not use the medical marijuana while taking the Xanax. Requested records from [facility] maintenance examination 06/08/2019 Overview (06/08/2019): PMH: 06/08/2019 Last colonoscopy/cologuard: 03/2019 Last tdap: 11/10/2018 Last Prevnar/pneumovax:2019 Last Shingrix: Last eye exam: Assessment & Plan (06/08/2019 10:06 AM SENIOR RESEARCH ENGINEER): PMH: 06/08/2019 Last colonoscopy/cologuard: 03/2019 Last tdap: 11/10/2018 Last Prevnar/pneumovax:2019 Last Shingrix: Last eye exam: Requested record BMI 21.0-21.9, adult 06/08/2019 Assessment & Plan (06/08/2019 10:04 AM SENIOR RESEARCH ENGINEER): BMI is okay. Normal range is 18-25 and overweight is 25-30. Continue to work on eating healthy and exercising at least 150 minutes per week. Cystic fibrosis 03/21/2019 Assessment & Plan (06/08/2019 10:04 AM SENIOR RESEARCH ENGINEER): Followed by pulmonary Anxiety 04/07/2018 Syncope and collapse 04/07/2018 Hypothyroid 02/10/2018 Assessment & Plan (06/08/2019 10:05 AM SENIOR RESEARCH ENGINEER): Patient has been out of meds since March. Refilled meds and patient to check his labs in 6-8 weeks Irritable bowel syndrome wit h both constipation and diarrhea 02/10/2018 Assessment & Plan (06/08/2019 10:05 AM SENIOR RESEARCH ENGINEER): Stable continue meds Panlobular emphysema 02/10/2018 Assessment & Plan (06/08/2019 10:05 AM SENIOR RESEARCH ENGINEER): Followed by pulmonary Tobacco use 02/10/2018 Assessment & Plan (06/08/2019 10:05 AM SENIOR RESEARCH ENGINEER): Quitting smoking is one of the most important things you can do for your health. Contact 8-407-KXCM-NOW or www.smokefree.gov for more information. Resolved Problems Problem Noted Date Diagnosed Date Resolved Date Acute kidney injury 05/03/2019 06/08/19 20 Complication of surgical procedure 05/03/2019 06/08/2019 Hydroureter 05/03/2019 06/08/2019 Left flank pain 05/03/2019 06/08/2019 Other hydronephrosis 05/03/2019 020 Hemoptysis 10/10/2018 06/08/2019 Snoring 07/17/2018 06/08/2019 JONES (dyspnea on exertion) 07/17/2018 PND (paroxysmal nocturnal dyspnea) 07/17/2018 06/08/2019 Anxiety and depression 04/07/201806/08 Hyperthyroidism 04/07/2018 06/08/2019 Pulmonary emphysema 04/07/2018 06/08/19 20 Abnormal EKG 02/16/2018 06/08/2019 Chest pain 02/16/2018 06/08/2019 Encounters Date Type Department Care Team Description 05/28/2024 Orders Only [facility] Medical [facility] Diabetes Endocrine Care at [address] [address] Alonzo Renee DO Hypothyroidism, unspecified type (Primary Dx) from Last 3 Months Immunizations Immunization Administration Dates Next Due Influenza, Quadrivalent, Rec ombinant, Egg Free, Preservative Free, Intramuscular 02/10/2018 Influenza, Quadrivalent, Split, Intramuscular Influenza, Quadrivalent, Spl it, Preservative Free, Intramuscular 01/22/2019 Pfizer SARS-CoV-2 Monovalent Vaccination (12+ Yrs) PURPLE 09/29/2020,09/05/2020 Pneumococcal Conjugate PCV 13 10/16/2017 Tdap 11/10/2018 Surgical History Surgery Date Site/Laterality Comments VARICOCELECTOMY URETHERAL RE-IMPLANTATION TONSILLECTOMY APPENDECTOMY BIOPSY PROSTATE NEEDLE / PUNCH / INCISIONAL Medical History Medical History Date Comments Abnormal heart rate Cystic fibrosis (HCC) Depression Thyroid disease Abnormal EKG 02/16/2018 Acute kidney injury 05/03/2019 Chest pain 02/16/2018 Complication of surgical procedure 05/03/2019 Hemoptysis 10/10/2018 Left flank pain 05/03/2019 Other hydronephrosis 05/03/2019 Anxiety Irritable bowel syndrome (IBS) Hypertension Hyperthyroidism 04/07/2018 Snoring 07/17/2018 PND (paroxysmal nocturnal dyspnea) 07/17/2018 Hydroureter 05/03/2019 JONES (dyspnea on exertion) 07/17/2018 Pulmonary emphysema (HCC) 04/07/2018 Family History Medical History Relation Name Comments Hypothyroidism Brother Cancer Father Prostate cancer Father Cancer Maternal Grandmother Cancer Mother Diabetes Mother Heart disease Sister Relation Name Status Comments Brother Father Maternal Grandmother Mother Sister Social History Tobacco Use Types Packs/Day Years Used Date Smoking Tobacco: Former Cigarettes 0.3 20 Smokeless Tobacco: Current Chew Tobacco Cessation:Ready to Q uit: Not Asked Alcohol Use Standard Drinks/Week Comments Not Currently 0 (1 standard drink = 0.6 oz pur e alcohol) AUDIT-C Answer Date Recorded Q1: How often do you have a drink containing alc ohol? Never 03/29/2023 Average Number of Drinks Not on file 023 Frequency of Binge Drinking Not on file 03/18 PHQ-2 Answer Date Recorded PHQ-2 Score 2 06/08/2019 Personal Safety Answer Date Recorded Have you ever been in or are you currently in a harmful physical or emotional relationship or is someone making you feel afraid or unsafe? 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 Not on file Not on file Obstetrics History Last Filed Vital Signs Vital Sign Reading Time Taken Comments Blood Pressure 116/66 03/21/2024 11:15 AM SENIOR RESEARCH ENGINEER Pulse 81 03/21/2024 11:15 AM SENIOR RESEARCH ENGINEER Temperature 36.8 C (98.2 F) 04/06/2023 3:08 PM SENIOR RESEARCH ENGINEER Respiratory Rate 18 04/06/2023 3:08 PM SENIOR RESEARCH ENGINEER Oxygen Saturation 93% 04/06/2023 3:08 PM SENIOR RESEARCH ENGINEER Inhaled Oxygen Concentration - - Weight 86.5 kg (190 lb 11.2 oz) 024 11:15 AM SENIOR RESEARCH ENGINEER Height 180.3 cm (5' 11 ) 03/21/2024 11: 15 AM SENIOR RESEARCH ENGINEER Body Mass Index 26.6 03/21/2024 11:15 AM SENIOR RESEARCH ENGINEER Plan of Treatment Health Maintenance Due Date Last Done Comments Hepatitis C Screening 1983 Prostate Cancer Screening-PSA 1983 Varicella Vaccines (1 of 2 - 13+ 2-dose series) 1996 Hepatitis B Screening 2001 Pneumococcal vaccine <65 (2 of 2 - PPSV23) 12/11/2017 10/16/2017 Depression Screening 06/08/2020 06/08/2019, 06/08/2019 Regular Well Visit/Exam 18-64 06/08/2020 06/08/2019 Covid-19 Vaccine (3 - 2023-2 5 season) 2023 09/29/2020, 09/05/2020 Influenza Vaccine (#1) 2023 , 01/22/2019, 02/10/2018 DTaP/Tdap/Td Vaccine (2 - Td or Tdap) 11/10/2028 11/10/2018 HPV Vaccines Aged Out No longer eligi ble based on patient's age to complete this topic Procedures Procedure Name Priority Date/Time Associated Diagnosis Comments TSH Routine 05/25/2024 from Last 3 Months Results * (ABNORMAL) TSH (05/25/2024) Scribed TSH 51.02(A) 350.00 - 4.94 mcU/mL EXTERNAL LAB Blood 05/25/2024 us Historical Provider LAB BLOOD ORDERABLES Anne bueno Result EXTERNAL LAB from Last 3 Months Insurance IDMT [facility] Advance Directives For more information, please contact: [phone] * Full Code (Latest Code Status on File) Date Activated Date Inactivated Comments 04/05/2023 6:42 PM 04/06/2023 8:56 PM Care Teams Instructional Systems Design Consultant Relationship Specialty Start Date End Date Dane Jane PA [address] [place] [address] PCP - General Family Practice 12/10/19 Roge Izaguirre MD [address] [place] [address] Consulting Physician Family Medicine 05/24/19 Emilio Mckeon MD [address] [facility] [address] [place] [address] Referring Physician Internal Medicine 06/08/19 lKaudia Cho DO [address] [place] [address] [place] [address] Referring Physician Urology 06/08/19
--- OUTSIDE RECORDS SUMMARY | 2024-07-21 01:05 | XMS_ITS | Encounter Summary ---
Author Organization [facility] Care Team Providers Care Speech Lang Path Therapist Name Role Phone Unknown, Notinfile Primary Care Provider Unavail able No, Physician Primary Care Provider Dnae Tavarez MD Primary Care Provider [phone] Ro Luna Primary Care Provider [phone] Roge Izaguirre MD Unavailable + [phone] Emilio Mckeon MD Unavailable [phone] Marquis, Klaudia Ferris Unavailable [phone] Ro Luna Primary Care Provider [phone] Dane Jane Primary Care Provider [phone] Encounter Details Date Type Department Care Team (Latest Contact Info) Description 02/10/2018 Orders Only [facility] CLINCON[facility] ProviderBraydon MD [address] [place] [address] Social History Tobacco Use Types Packs/Day Years Used Date Smoking Tobacco: Never Assessed Sex and Gender Information Value Date Recorded Sex Assigned at Not on file Legal Sex Male 7:33 PM FILLER BLOCK INSERTER REMOVER Gender Identity Not on file Sexual Orientation Not on file documented as of this encounter Plan of Treatment Not on file documented as of this encounter Procedures Procedure Name Priority Date/Time Associated Diagnosis Comments CARDIOLOGY REPORT 02/10/2018 12: 00 AM CDT documented in this encounter Results * CARDIOLOGY REPORT (02/10/2018 12:00 AM CDT) Anatomical Region Laterality Modality Other Narrative 02/10/2018 12:00 AM CDT Ordered by an unspecified provider. us Historical Provider [facility] Final Result documented in this encounter Visit Diagnoses Not on filedocumented in this encounter Additional Health Concerns Infection Onset Date Last Indicated Resolved Time COVID: Suspected 04/05/2023 04/05/2023 04/05/2023 12:57 PM FILLER BLOCK INSERTER REMOVER documented as of this encounter Care Teams Speech Lang Path Therapist Relationship Specialty Start Date End Date Unknown, Notinfile PCP - General 11/23/18 11/26/18 No, Physician PCP - General 11/27/18 04/25/19 Dane Tavarez MD PCP - General Family Medicine 04/26/19 05/23/19 Ro Luna PA [address] [place] [address] PCP - General Family Medicine 05/24/19 12/09/19 Ro Luna PA [address] [place] [address] PCP - General 11/10/18 11/22/18 Dane Jane PA [address] [place] [address] PCP - General Family Practice 12/10/19 Roge Izaguirre MD [address] [place], [place] [id number] Consulting Physician Family Medicine 05/24/19 Emilio Mckeon MD [address] [facility] [address] [place] [address] Referring Physician Internal Medicine 06/08/19 Klaudia Cho DO [address] [place] [address] Referring Physician Urology 06/08/19 documented as of this encounter
--- OUTSIDE RECORDS SUMMARY | 2024-07-21 01:05 | XMS_ITS | Encounter Summary ---
Author Organization [facility] Address [address] [facility] [place] [address] Care Team Providers Care Marble Setter Helper Name Role Phone Dane Jane Primary Care Provider [phone] Reason for Visit * Reason Onset Date Comments Reminder Call 04/04/2024 No answer. Left voicemail. Encounter Details Date Type Department Care Team (Late st Contact Info) Description 04/04/2024 Telephone [facility] - Pulmonology [address] [facility], [place] [address] Rd Quintero MD [address] [place] [address] PULMONARY MED [address] [place] [phone] Reminder Call (No answer. Left voicemail.) Social History Tobacco Use Types Packs/Day Years Used Date Smoking Tobacco: Some Days Cigarettes 0.1 25.3 Started: 1999 Smokeless Tobacco: Never Comments:1 pack of cigs last about a [...] Sex Assigned at Male 04/05/2022 9:34 PM DIRECTOR FACILITIES MAINTENANCE Gender Identity Male 04/05/2022 9:34 PM DIRECTOR FACILITIES MAINTENANCE Sexual Orientation Straight 04/05/2022 9: 34 PM DIRECTOR FACILITIES MAINTENANCE documented as of this encounter Functional Status Functional Status Response Date of Assess ment Is person deaf or have serious hearing difficult y? No 05/23/2023 Is person blind or have serious difficulty seein g? No 05/23/2023 Does person have serious dif ficulty walking/climbing stairs? No 05/23/2023 Does person have difficulty dressing/bathing? No 05/23/2023 Does person have difficulty doing errands alone? No 05/23/2023 Cognitive Status Response Date of Assessm ent Does person have difficulty concentrating/remembering/making decisions? No 05/23/2023 documented as of this encounter Miscellaneous Notes * Telephone Encounter - Corky Campos - 04/04/2024 9:16 AM CST Called patient about appointment but no answer. Left a voicemail. CTOR FACILITIES MAINTENANCE documented in this encounter Plan of Treatment Not on file documented as of this encounter Visit Diagnoses Not on filedocumented in this encounter Care Teams Marble Setter Helper Relationship Specialty Start Date End Date Dane Jane PA [address] [place] [address] PCP - General 01/18/20 documented as of this encounter
--- OUTSIDE RECORDS SUMMARY | 2024-07-21 01:05 | XMS_ITS | Encounter Summary ---
Author Organization [facility] Care Team Providers Care Office Services Associate Name Role Phone Unknown, Notinfile Primary Care Provider Unavail able No, Physician Primary Care Provider Dane Tavarez MD Primary Care Provider [phone] Ro Luna Primary Care Provider [phone] Roge Izaguirre MD Unavailable + [phone] Emilio Mckeon MD Unavailable [phone] Marquis, Klaudia Ferris Unavailable [phone] Ro Luna Primary Care Provider [phone] Dane Jane Primary Care Provider [phone] Encounter Details Date Type Department Care Team (Latest Contact Info) Description 02/21/2018 Orders Only [facility] CLINCONV ProviderBraydon MD [address] [place] [address] Social History Tobacco Use Types Packs/Day Years Used Date Smoking Tobacco: Never Assessed Sex and Gender Information Value Date Recorded Sex Assigned at Not on file Legal Sex Male 7:33 PM WINDOWS APPLICATION DEVELOPER Gender Identity Not on file Sexual Orientation Not on file documented as of this encounter Plan of Treatment Not on file documented as of this encounter Procedures Procedure Name Priority Date/Time Associated Diagnosis Comments CARDIOLOGY REPORT 02/21/2018 12: 00 AM WINDOWS APPLICATION DEVELOPER documented in this encounter Results * CARDIOLOGY REPORT (02/21/2018 12:00 AM WINDOWS APPLICATION DEVELOPER) Anatomical Region Laterality Modality Other Narrative 02/21/2018 12:00 AM WINDOWS APPLICATION DEVELOPER Ordered by an unspecified provider. us Historical Provider [facility]JER[facility] Final Result documented in this encounter Visit Diagnoses Not on filedocumented in this encounter Additional Health Concerns Infection Onset Date Last Indicated Resolved Time COVID: Suspected 04/05/2023 04/05/2023 04/05/2023 12:57 PM WINDOWS APPLICATION DEVELOPER documented as of this encounter Care Teams Office Services Associate Relationship Specialty Start Date End Date Unknown, Notinfile PCP - General 11/23/18 11/26/18 No, Physician PCP - General 11/27/18 04/25/19 Dane Tavarez MD PCP - General Family Medicine 04/26/19 05/23/19 Ro Luna PA [address] [place], [place] [id number] PCP - General Family Medicine 05/24/19 12/09/19 Ro Luna PA [address] [place] [address] PCP - General 11/10/18 11/22/18 Dane Jane PA [address] [place] [address] PCP - General Family Practice 12/10/19 Roge Izaguirre MD [address] [place], [place] [phone] Consulting Physician Family Medicine 05/24/19 Emilio Mckeon MD [address] [facility] [address] [place] [address] Referring Physician Internal Medicine 06/08/19 Klaudia Cho DO [address] [place] [address] Referring Physician Urology 06/08/19 documented as of this encounter
--- OUTSIDE RECORDS SUMMARY | 2024-07-21 01:05 | XMS_ITS | Encounter Summary ---
Author Organization [facility] Address [address] [facility] [place] [address] Care Team Providers Care Basket Mender Name Role Phone Dane Jane Primary Care Provider [phone] Reason for Visit * Reason Onset Date Comments Instructions 04/29/2020 Spoke with patiankush nt about with holding Spiriva x 7 days prior to Methacholine Challenge testing; reviewed Symbicort with hold x 2 days prior to test and Albuterol MDI withheld x 6 hours - VGall BELT POLISHER Encounter Details Date Type Department Care Team (Late st Contact Info) Description 04/29/[address] [facility] PFT [address] [place] [phone] Emilio Mckeon MD [address] [facility] [address] [facility] [address] Instructions (Spoke with patient about with holding Spiriva x 7 days prior to Methacholine Challenge testing; reviewed Symbicort with hold x 2 days prior to test and Albuterol MDI withheld x 6 hours - VGall BELT POLISHER) Social History Tobacco Use Types Packs/Day Years Used Date Smoking Tobacco: Some Days Cigarettes 0.1 25.3 Started: 1999 Smokeless Tobacco: Never Comments:2-3 cigarettes a da y at most Alcohol Use Standard Drinks/Week Comments No 0 (1 standard drink = 0.6 oz pur e alcohol) Sex and Gender Information Value Date Recorded Sex Assigned at Male 04/05/2022 9:34 PM DIDACTIC PROGRAM IN DIETETICS DIRECTOR Gender Identity Male 04/05/2022 9:34 PM DIDACTIC PROGRAM IN DIETETICS DIRECTOR Sexual Orientation Straight 04/05/2022 9: 34 PM DIDACTIC PROGRAM IN DIETETICS DIRECTOR COVID-19 Exposure Response Date Recorded In the last month, have you been in contact with someone who was confirmed or suspected to have Coronavirus / COVID-19? Unable to assess 04/29/2020 2:21 PM DIDACTIC PROGRAM IN DIETETICS DIRECTOR documented as of this encounter Functional Status Functional Status Response Date of Assess ment Is person deaf or have serious hearing difficult y? No 03/19/2020 Is person blind or have serious difficulty seein g? No 03/19/2020 Does person have serious dif ficulty walking/climbing stairs? No 03/19/2020 Does person have difficulty dressing/bathing? No 03/19/2020 Does person have difficulty doing errands alone? No 03/19/2020 Cognitive Status Response Date of Assessm ent Does person have difficulty concentrating/remembering/making decisions? No 03/19/2020 documented as of this encounter Plan of Treatment Not on file documented as of this encounter Visit Diagnoses Not on filedocumented in this encounter Care Teams Basket Mender Relationship Specialty Start Date End Date Dane Jane PA [address] [place] [address] PCP - General 01/18/20 documented as of this encounter
--- OUTSIDE RECORDS SUMMARY | 2024-07-21 01:05 | XMS_ITS | Encounter Summary ---
Author Organization [facility] Facility Care Team Providers Care Electronics Assembler Name Role Phone Unknown, Notinfile Primary Care Provider Unavail able No, Physician Primary Care Provider [phone] Dane Tavaerz MD Primary Care Provider [phone] Ro Luna Primary Care Provider [phone] Roge Izaguirre MD Unavailable + [phone] Emilio Mckeon MD Unavailable [phone] Amrquis, Klaudia Ferris Unavailable [phone] Ro Luna Primary Care Provider [phone] Dane Jane Primary Care Provider [phone] Encounter Details Date Type Department Care Team (Latest Contact Info) Description 12/11/2017 Orders Only [facility] CLINCONV ProviderBraydon MD [address] [place] [address] Social History Tobacco Use Types Packs/Day Years Used Date Smoking Tobacco: Never Assessed Sex and Gender Information Value Date Recorded Sex Assigned at Not on file Legal Sex Male 7:33 PM BOTTLE CAPPING MACHINE OPERATOR Gender Identity Not on file Sexual Orientation Not on file documented as of this encounter Plan of Treatment Not on file documented as of this encounter Procedures Procedure Name Priority Date/Time Associated Diagnosis Comments CARDIOLOGY REPORT 12/11/2017 12: 00 AM CDT documented in this encounter Results * CARDIOLOGY REPORT (12/11/2017 12:00 AM CDT) Anatomical Region Laterality Modality Other Narrative 12/11/2017 12:00 AM CDT Ordered by an unspecified provider. us Historical Provider [facility]JER[facility] Final Result documented in this encounter Visit Diagnoses Not on filedocumented in this encounter Additional Health Concerns Infection Onset Date Last Indicated Resolved Time COVID: Suspected 04/05/2023 04/05/2023 04/05/2023 12:57 PM BOTTLE CAPPING MACHINE OPERATOR documented as of this encounter Care Teams Electronics Assembler Relationship Specialty Start Date End Date Unknown, Notinfile PCP - General 11/23/18 11/26/18 No, Physician PCP - General 11/27/18 04/25/19 Dane Tavarez MD PCP - General Family Medicine 04/26/19 05/23/19 Ro Luna PA [address] [place] [address] PCP - General Family Medicine 05/24/19 12/09/19 Ro Luna PA [address] [place] [address] PCP - General 11/10/18 11/22/18 Dane Jane PA [address] [place] [address] PCP - General Family Practice 12/10/19 Roge Izaguirre MD [address] [place], [place] [id number] Consulting Physician Family Medicine 05/24/19 Emilio Mckeon MD [address] [facility] [address] [place] [address] Referring Physician Internal Medicine 06/08/19 Klaudia Cho DO [address] [place] [address] Referring Physician Urology 06/08/19 documented as of this encounter
--- OUTSIDE RECORDS SUMMARY | 2024-07-21 01:05 | XMS_ITS | Referral Summary ---
Author Organization [facility] [facility] Address [address] [place] [address] Care Team Providers Care Orthodontic Technician Assistant Name Role Phone Roge Izaguirre MD Unavailable [phone] Emilio Mckeon MD Unavailable [phone] Klaudia Cho DO Unavailable Dane Jane Primary Care Provider [phone] Encounters Date Type Department Care Team Description 05/28/[address] [facility] Medical [facility] Diabetes Endocrine Care at [address] [place] [address] Alonzo Renee DO Hypothyroidism, unspecified type (Primary Dx) from Last 3 Months Allergies Active Allergy Reactions Criticality Noted Date [...] 06/08/2019 Assessment & Plan (06/08/2019 10:05 AM JAVA SOFTWARE): I explained to patient I would refill the Xanax at 1 mg b.i.d. only until we can get him to see a psychiatrist. Patient needs to not use the medical marijuana while taking the Xanax. Requested records from [facility] I Health maintenance examination 06/08/2019 Overview (06/08/2019): PMH: 06/08/2019 Last colonoscopy/cologuard: 03/2019 Last tdap: 11/10/2018 Last Prevnar/pneumovax:2019 Last Shingrix: Last eye exam: Assessment & Plan (06/08/2019 10:06 AM JAVA SOFTWARE): PMH: 06/08/2019 Last colonoscopy/cologuard: 03/2019 Last tdap: 11/10/2018 Last Prevnar/pneumovax:2019 Last Shingrix: Last eye exam: Requested record BMI 21.0-21.9, adult 06/08/2019 Assessment & Plan (06/08/2019 10:04 AM JAVA SOFTWARE): BMI is okay. Normal range is 18-25 and overweight is 25-30. Continue to work on eating healthy and exercising at least 150 minutes per week. Cystic fibrosis 03/21/2019 Assessment & Plan (06/08/2019 10:04 AM JAVA SOFTWARE): Followed by pulmonary Anxiety 04/07/2018 Syncope and collapse 04/07/2018 Hypothyroid 02/10/2018 Assessment & Plan (06/08/2019 10:05 AM JAVA SOFTWARE): Patient has been out of meds since March. Refilled meds and patient to check his labs in 6-8 weeks Irritable bowel syndrome wit h both constipation and diarrhea 02/10/2018 Assessment & Plan (06/08/2019 10:05 AM JAVA SOFTWARE): Stable continue meds Panlobular emphysema 02/10/2018 Assessment & Plan (06/08/2019 10:05 AM JAVA SOFTWARE): Followed by pulmonary Tobacco use 02/10/2018 Assessment & Plan (06/08/2019 10:05 AM JAVA SOFTWARE): Quitting smoking is one of the most important things you can do for your health. Contact 4-238-XSWB-NOW or www.smokefree.gov for more information. Resolved Problems [...] EKG 02/16/2018 06/08/2019 Chest pain 02/16/2018 06/08/2019 Immunizations Immunization Administration Dates Next Due Influenza, Quadrivalent, Rec ombinant, Egg Free, Preservative Free, Intramuscular 02/10/2018 Influenza, Quadrivalent, Split, Intramuscular Influenza, Quadrivalent, Spl it, Preservative Free, Intramuscular 01/22/2019 Pfizer SARS-CoV-2 Monovalent Vaccination (12+ Yrs) PURPLE 09/29/2020,09/05/2020 Pneumococcal Conjugate PCV 13 10/16/2017 Tdap 11/10/2018 Social History Tobacco Use Types Packs/Day Years [...] on file Legal Sex Male 7:33 PM JAVA SOFTWARE Gender Identity Not on file Sexual Orientation Not on file 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 Not on file Not on file Not on file Last Filed Vital Signs Vital Sign Reading Time Taken Comments Blood Pressure 116/66 03/21/2024 11:15 AM JAVA SOFTWARE Pulse 81 03/21/2024 11:15 AM JAVA SOFTWARE Temperature 36.8 C (98.2 F) 04/06/2023 3:08 PM JAVA SOFTWARE Respiratory Rate 18 04/06/2023 3:08 PM JAVA SOFTWARE Oxygen Saturation 93% 04/06/2023 3:08 PM JAVA SOFTWARE Inhaled Oxygen Concentration - - Weight 86.5 kg (190 lb 11.2 oz) 024 11:15 AM JAVA SOFTWARE Height 180.3 cm (5' 11 ) 03/21/2024 11: 15 AM JAVA SOFTWARE Body Mass Index 26.6 03/21/2024 11:15 AM JAVA SOFTWARE Plan of Treatment Not on file Procedures Procedure Name Priority Date/Time Associated Diagnosis Comments TSH Routine 05/25/2024 from Last 3 Months Results * (ABNORMAL) TSH (05/25/2024) Scribed TSH 51.02(A) 350.00 - 4.94 mcU/mL EXTERNAL LAB Blood 05/25/2024 us Historical Provider LAB BLOOD ORDERABLES Anne bueno Result EXTERNAL LAB from Last 3 Months Insurance [facility] Advance Directives For more information, please contact: [phone] * Full Code (Latest Code Status on File) Date Activated Date Inactivated Comments 04/05/2023 6:42 PM 04/06/2023 8:56 PM Care Teams Orthodontic Technician Assistant Relationship Specialty Start Date End Date Dane Jane PA [address] [place] [address] PCP - General Family Practice 12/10/19 Roge Izaguirre MD [address] [place] [address] Consulting Physician Family Medicine 05/24/19 Emilio Mckeon MD [address] [facility] [address] [place] [address] Referring Physician Internal Medicine 06/08/19 Klaudia Cho DO [address] [facility] [address] [place] [address] Referring Physician Urology 06/08/19
--- OUTSIDE RECORDS SUMMARY | 2024-07-21 01:05 | XMS_ITS | Continuity of Care Document ---
Author Organization [facility] Address [address] [place] [address] Phone Care Team Providers Care Tumblers Supervisor Name Role Phone Inez Brian DO [...] Date Provider Providers Copied on Encounter [facility], [address] [place] [address], [id number], [phone] [facility] No Information 6 Snehal Wiley. [address] [place] [address], [place] [address], [place], [place], [id number] , [place]. tel: [phone] Office consultation , [facility], [address] [place] [address], [id number], [place] tel:[phone] [facility] Unsp injury of left wrist, hand and finger(s), init encntr 6 Madya Brunner. [address] [place] [address], [place] [address], [place], [place], [id number] , [place]. tel: [phone] [facility], [address] [place] [address], [place], [id number], [place] [phone] [facility] Encounter for other administrative examinationsUnsp injury of left wrist, hand and finger(s), init encntr 6 Snehal Wiley. [address] [facility], [place], [place], [id number] , [place]. tel: [phone] Family History Family Member Type Diagnosis Age At Onset Maternal grandmother Problem (finding) Diabetes Maternal grandmother Problem (finding) hypertension Maternal grandmother Problem (finding) Heart disease Maternal grandmother Problem (finding) Cancer, unknown Payers Payer name Insurance type Covered alliance party ID Authoriza tion(s) No Information Social History [...]
--- OUTSIDE RECORDS SUMMARY | 2024-07-21 01:05 | XMS_ITS | Encounter Summary ---
Author Organization [facility] Address [address] [facility] [place] [address] Care Team Providers Care Edi Specialist Name Role Phone Dane Jane Primary Care Provider [phone] Reason for Visit * Reason Comments Refill Request Encounter Details Date Type Department Care Team (Late st Contact Info) Description 06/15/2021 Refill [facility] Pul[facility], Critical Care and Sleep Medicine [address] [facility], [place] [id number] Emilio Mckeon MD [address] [facility] 2[address] DIV OF PULMONARY/[place] [address] Refill Request Social History Tobacco Use Types Packs/Day Years Used Date Smoking Tobacco: Former Cigarettes 0.1 21 2 000 - 04/18/2020 Smokeless Tobacco: Never Comments:2-3 cigarettes a da y at most Alcohol Use Standard Drinks/Week Comments No 0 (1 standard drink = 0.6 oz pur e alcohol) Sex and Gender Information Value Date Recorded Sex Assigned at Male 04/05/2022 9:34 PM PLATER SUPERVISOR Gender Identity Male 04/05/2022 9:34 PM PLATER SUPERVISOR Sexual Orientation Straight 04/05/2022 9: 34 PM PLATER SUPERVISOR documented as of this encounter Functional Status [...] documented as of this encounter Visit Diagnoses Diagnosis Severe persistent asthma without complication (HCC) documented in this encounter Care Teams Edi Specialist Relationship Specialty Start Date End Date Dane Jane PA [address] [place] [address] PCP - General 01/18/20 documented as of this encounter
--- OUTSIDE RECORDS SUMMARY | 2024-07-21 01:05 | XMS_ITS | Continuity of Care Document ---
Author Organization [facility] Address [address] [place] [address] Phone Care Team Providers Care Top Frame Maker Name Role Phone Adriel Dodge MD Unavailable Unavailable Procedures Procedure Date Clsd trtmnt mtcrpl Fx sng w/o manip Application of forearm cast Special Casting Material Application of forearm cast Special Casting Material X-ray exam of hand, 3+ views Advance Directives Directive Yes / No Effective Date File Name No Information Encounters Encounter Description Practice Location Reason(s) For Visit Diagnoses Date Provider Providers Copied on Encounter [facility], [address] [place] [address], [id number], tel:[phone] [facility] No Information 5 Dar Morel. [address] [place], [place], [id number] , . tel:[phone] Referring Provider: Zander Lan, [address] [place], [address]. tel:[phone] [facility], [address] [place] [address], [id number], tel:[phone] [facility] No Information [address] Dar Morel. [address] [place], [place], [id number] , . tel:[phone] Referring Provider: Zander Lan, [address] [place], [address]. tel:[phone] Family History Family Member Type Diagnosis Age At Onset No Information Payers Payer name Insurance type Covered constitution party ID Authoriza tion(s) [employer] CI [id number] Social History Type Description Quantity Date Captured [...]
[2024-07-21 01:10] VITALS: BP 148/86; PULSE 82; RESP 16; O2SAT 99
--- OUTSIDE RECORDS SUMMARY | 2024-07-21 01:36 | XMS_ITS | Encounter Summary ---
Author Organization [facility] Care Team Providers Care Penciller Name Role Phone Unknown, Notinfile Primary Care Provider Unavail able No, Physician Primary Care Provider Dane Tavarez MD Primary Care Provider [phone] Ro Luna Primary Care Provider [phone] Roge Izaguirre MD Unavailable [phone] Emilio Mckeon MD Unavailable [phone] Marquis, Klaudia Ferirs Unavailable [phone] Ro Luna Primary Care Provider [phone] Dane Jane Primary Care Provider [phone] Encounter Details Date Type Department Care Team (Latest Contact Info) Description 02/10/2018 Orders Only [facility] ProviderBraydon MD [address] [place] [address] Social History Tobacco Use Types Packs/Day Years Used Date Smoking Tobacco: Never Assessed Sex and Gender Information Value Date Recorded Sex Assigned at Not on file Legal Sex Male 7:33 PM JOURNAL ENTRY AUDIT CLERK Gender Identity Not on file Sexual Orientation [...] COVID: Suspected 04/05/2023 04/05/2023 04/05/2023 12:57 PM JOURNAL ENTRY AUDIT CLERK documented as of this encounter Care Teams Penciller Relationship Specialty Start Date End Date Unknown, Notinfile PCP - General 11/23/18 11/26/18 No, Physician PCP - General 11/27/18 04/25/19 Dane Tavarez MD PCP - General Family Medicine 04/26/19 05/23/19 Ro Luna PA [address] [place] [address] PCP - General Family Medicine 05/24/19 12/09/19 Ro Luna PA [address] [place] [address] PCP - General 11/10/18 11/22/18 Dane Jane PA [address] [place] [address] PCP - General Family Practice 12/10/19 Roge Izaguirre MD [address] [place], [place] [id number] Consulting Physician Family Medicine 05/24/19 Emilio Mckeon MD [address] [facility] [address] [place] [address] Referring Physician Internal Medicine 06/08/19 Klaudia Cho DO [address] [place] [address] [place] [address] Referring Physician Urology 06/08/19 documented as of this encounter
--- OUTSIDE RECORDS SUMMARY | 2024-07-21 01:36 | XMS_ITS | Continuity of Care Document ---
Author Organization [facility] Address [address] [place] [address] Phone Care Team Providers Care Facilities Locator Name Role Phone Inez Brian DO Unavailable [...] Date Provider Providers Copied on Encounter [facility], [address] [place] [address], [id number], [phone] [facility] No Information 6 Snehal Wiley. [address] [place] [address], [place] [address], [place], [place], [id number] , [place]. tel: [phone] Office consultation , [place] [facility], [address] [place] [address], [id number], [place] tel:[phone] [facility] Unsp injury of left wrist, hand and finger(s), init encntr 6 Maday Brunner. [address] [place] [address], [place] [address], [place], [place], [id number] , [place]. tel: [phone] [facility], [address] [place] [address], [place], [id number], [place] [phone] [facility] Encounter for other administrative examinationsUnsp injury of left wrist, hand and finger(s), init encntr 6 Snehal Wiley. [address] [facility], [address], [place], [place], [id number] , [place]. tel: [phone] Family History Family Member Type Diagnosis Age At Onset Maternal grandmother Problem (finding) Diabetes Maternal grandmother Problem (finding) hypertension Maternal grandmother Problem (finding) Heart disease Maternal grandmother Problem (finding) Cancer, unknown Payers Payer name Insurance type Covered constitution party ID Authoriza tion(s) No Information Social [...]
--- OUTSIDE RECORDS SUMMARY | 2024-07-21 01:36 | XMS_ITS | Continuity of Care Document ---
Author Organization [facility] Address [address] [place] [address] Phone Care Team Providers Care Farm Mechanic Name Role Phone Lisa Boyd MD Unavailable Unavailabl e Allergies, Adverse Reactions, Alerts Substance Reaction Status Criticality Sulfa (Sulfonamide Antibiotics) Other Active No Information Penicillins Other Active No Information Advance Directives Directive Yes / No Effective Date File Name No Information Encounters Encounter Description Practice Location Reason(s) For Visit Diagnoses Date Provider Providers Copied on Encounter [facility], [address], [place], [place], [id number], tel:[phone] [facility] No Information Oliver Gonzalez. [address], [id number]. tel:[phone] [facility], [address], [place], [place], [id number], tel:[phone] [facility] DIARRHEA Oliver Gonzalez. [address], [id number]. tel:[phone] Family History Family Member Type Diagnosis Age [...]
--- OUTSIDE RECORDS SUMMARY | 2024-07-21 01:36 | XMS_ITS | Encounter Summary ---
Author Organization [facility] Address [address] [facility] [place] [address] Care Team Providers Care Agronomy Internship Name Role Phone Dane Jane Primary Care Provider [phone] Reason for Visit * Reason Onset Date Comments Instructions 04/29/2020 Spoke with patiankush nt about with holding Spiriva x 7 days prior to Methacholine Challenge testing; reviewed Symbicort with hold x 2 days prior to test and Albuterol MDI withheld x 6 hours - VGall BUTCHER HELPER Encounter Details Date Type Department Care Team (Late st Contact Info) Description 04/29/2020 Telephone [facility] [address] [place] [phone] Emilio Mckeon MD [address] [facility] [address] [facility] [address] Instructions (Spoke with patient about with holding Spiriva x 7 days prior to Methacholine Challenge testing; reviewed Symbicort with hold x 2 days prior to test and Albuterol MDI withheld x 6 hours - VGall BUTCHER HELPER) Social History Tobacco Use Types Packs/Day Years Used Date Smoking Tobacco: Some Days Cigarettes 0.1 25.3 Started: 1999 Smokeless Tobacco: Never Comments:2-3 cigarettes a da y at most Alcohol Use Standard Drinks/Week Comments No 0 (1 standard drink = 0.6 oz pur e alcohol) Sex and Gender Information Value Date Recorded Sex Assigned at Male 04/05/2022 9:34 PM FRUIT VENDOR Gender Identity Male 04/05/2022 9:34 PM FRUIT VENDOR Sexual Orientation Straight 04/05/2022 9: 34 PM FRUIT VENDOR COVID-19 Exposure Response Date Recorded In the last month, have you been in contact with someone who was confirmed or suspected to have Coronavirus / COVID-19? Unable to assess 04/29/2020 2:21 PM FRUIT VENDOR documented as of this encounter Functional Status [...] on filedocumented in this encounter Care Teams Agronomy Internship Relationship Specialty Start Date End Date Dane Jane PA [address] [place] [address] PCP - General 01/18/20 documented as of this encounter
--- OUTSIDE RECORDS SUMMARY | 2024-07-21 01:36 | XMS_ITS | Clinical Summary ---
Author Organization [facility] Address [address] [place] [address] Care Team Providers Care Section Leader Screen Printing Name Role Phone Dane Jane Primary Care Provider Allergies Active Allergy Reactions Criticality Noted Date [...] 0 Active Nebulizers (VIOS AEROSOL DELIVERY SYSTEM) [facility] UTD 9 Active ipratropium-albu terol 0.5-2.5 (3) [...] flank pain 05/03/2019 Hydroureter 05/03/2019 Cystic fibrosis ([facility]) 03/21/2019 Overview (10/10/2019): Last Assessment & Plan: [...] while taking the Xanax. Requested records from [place] [facility] [place] [facility] Anxiety 04/07/2018 Syncope and collapse 04/07/2018 Tobacco use 02/10/2018 Overview (10/10/2019): Last Assessment & Plan: Quitting smoking is one of the most important things you can do for your health. Contact 2-125-AQLV-NOW or www.smokefree.gov for more information. Irritable bowel syndrome 02/10/2018 Overview (10/10/2019): Last Assessment & Plan: Stable continue meds Panlobular emphysema ([facility]) 8 Overview (10/10/2019): Last Assessment & Plan: [...] patient's age to complete this topic Insurance [place] Member Subscriber Plan / Payer (Ef fective 2019-Present) Name:Freddie Garcia Relation to Subscriber:Self Name:Freddie Garcia Payer ID:[id number] (NAIC) Group ID:Not on file Type:Not on file Address: [place] [id number] Advance Directives Documents on File Type Date Recorded Patient Steeping Press Tender Expl anation Legal Documents 12/03/2021 8:29 AM [employer]YLA [employer] LESIA Documents faxed back 12/02/21 Legal Documents 08/13/2020 11:11 AM RECVD & CMPLTD ATTY REQ. FOR HB BILLS FOR MEDHAT FOR [employer] Legal Documents 07/15/2020 10:09 AM RECVD & CMPLTD ATTY REQ. FOR HB BILLS FOR [employer] FOR [employer] Care Teams Section Leader Screen Printing Relationship Specialty Start Date End Date Dane Jane PA [address] [place] [address] PCP - General PHYSICIAN SEARCH STRATEGIST 10/21/20
--- OUTSIDE RECORDS SUMMARY | 2024-07-21 01:36 | XMS_ITS | Encounter Summary ---
Author Organization [facility] Address [address] [facility] [place] [address] Care Team Providers Care Typecasting Machine Operator Name Role Phone Dane Jane Primary Care Provider [phone] Reason for Visit * Reason Onset Date Comments Order 02/22/2020 Encounter Details Date Type Department Care Team (Late st Contact Info) Description 02/22/2020 Telephone [facility] [address] [place] [address] Ru Livingston MD [address] OF PULMONARY/[place] [address] Order Social History Tobacco Use Types Packs/Day Years Used Date Smoking Tobacco: Some Days Cigarettes 0.1 25.3 Started: 1999 Smokeless Tobacco: Never Comments:2-3 cigarettes a da y at most Alcohol Use Standard Drinks/Week Comments No 0 (1 standard drink = 0.6 oz pur e alcohol) Sex and Gender Information Value Date Recorded Sex Assigned at Male 04/05/2022 9:34 PM SHREDDER TENDER Gender Identity Male 04/05/2022 9:34 PM SHREDDER TENDER Sexual Orientation Straight 04/05/2022 9: 34 PM SHREDDER TENDER documented as of this encounter Functional Status [...] Ru Livingston MD - 02/22/2020 2:44 PM SHREDDER TENDER PATIENT COMMUNICATION NOTE Dear Ms. Sullivan: Please [...] you with. Take care, Ru Livingston MD, [facility], [facility], [facility] Wedding Planner, [facility] Professor of Internal Medicine Adjunct Audio Visual Collections Coordinator of Neurology Division of Pulmonary, Critical Care, and Sleep Medicine [facility] ===View-only below this line=== ----- Message ----- From: Gwendolyn Sullivan Sent: 02/22/2020 2:16 PM SHREDDER TENDER To: Ru Livingston MD DDER TENDER * Telephone Encounter - Gwendolyn Sullivan - 02/22/2020 2:15 PM CST Patient is asking if he can preform an HSt instead of a PSG? DDER TENDER documented in this encounter Plan of Treatment Not on file documented as of this encounter Visit Diagnoses Not on filedocumented in this encounter Care Teams Typecasting Machine Operator Relationship Specialty Start Date End Date Dane Jane PA [address] [place] [address] PCP - General 01/18/20 documented as of this encounter
--- OUTSIDE RECORDS SUMMARY | 2024-07-21 01:36 | XMS_ITS | Continuity of Care Document ---
Author Organization [facility] Address [address] [place] [address] Phone Care Team Providers Care Interline Clerk Name Role Phone Adriel Dodge MD Unavailable [...] Diagnoses Date Provider Providers Copied on Encounter [facility], [address] [place] [address], [id number], tel:[phone] [facility] No Information 5 Dar Morel. [address] [place], [place], [id number] , . tel:[phone] Referring Provider: Zander Lan, [address] [place], [address]. tel:[phone] [facility], [address] [place] [address], [id number], tel:[phone] [facility] No Information [address] Dar Morel. [address] [place], [place], [id number] , . tel:[phone] Referring Provider: Zander Lan, [address] [place], [address]. tel:[phone] Family History Family Member Type Diagnosis Age At Onset No Information Payers Payer name Insurance type Covered democrat ID Authoriza tion(s) [employer] CI [id number] Social History Type Description Quantity Date Captured [...]
--- OUTSIDE RECORDS SUMMARY | 2024-07-21 01:36 | XMS_ITS | Referral Summary ---
Author Organization [facility] [address] [facility] Address [address] [place] [address] Care Team Providers Care Millinery Copyist Name Role Phone Roge Izaguirre MD Unavailable [phone] Emilio Mckeon MD Unavailable [phone] Klaudia Cho DO Unavailable Dane Jane Primary Care Provider Encounters Date Type Department Care Team Description 05/28/2024 Orders Only [facility] Diabetes Endocrine Care at [address] [place] [address] Alonzo Renee DO Hypothyroidism, unspecified type [...] 06/08/2019 Assessment & Plan (06/08/2019 10:05 AM CHANNELER): I explained to patient I would refill the Xanax at 1 mg b.i.d. only until we can get him to see a psychiatrist. Patient needs to not use the medical marijuana while taking the Xanax. Requested records from [facility] I Health maintenance examination 06/08/2019 Overview (06/08/2019): PMH: 06/08/2019 Last colonoscopy/cologuard: 03/2019 Last tdap: 11/10/2018 Last Prevnar/pneumovax:2019 Last Shingrix: Last eye exam: Assessment & Plan (06/08/2019 10:06 AM CHANNELER): PMH: 06/08/2019 Last colonoscopy/cologuard: 03/2019 Last tdap: 11/10/2018 Last Prevnar/pneumovax:2019 Last Shingrix: Last eye exam: Requested record BMI 21.0-21.9, adult 06/08/2019 Assessment & Plan (06/08/2019 10:04 AM CHANNELER): BMI is okay. Normal range is 18-25 and overweight is 25-30. Continue to work on eating healthy and exercising at least 150 minutes per week. Cystic fibrosis 03/21/2019 Assessment & Plan (06/08/2019 10:04 AM CHANNELER): Followed by pulmonary Anxiety 04/07/2018 Syncope and collapse 04/07/2018 Hypothyroid 02/10/2018 Assessment & Plan (06/08/2019 10:05 AM CHANNELER): Patient has been out of meds since March. Refilled meds and patient to check his labs in 6-8 weeks Irritable bowel syndrome wit h both constipation and diarrhea 02/10/2018 Assessment & Plan (06/08/2019 10:05 AM CHANNELER): Stable continue meds Panlobular emphysema 02/10/2018 Assessment & Plan (06/08/2019 10:05 AM CHANNELER): Followed by pulmonary Tobacco use 02/10/2018 Assessment & Plan (06/08/2019 10:05 AM CHANNELER): Quitting smoking is one of the most important things you can do for your health. Contact 5-703-VEDF-NOW or www.smokefree.gov for more information. 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 file Not on file Not on file Last Filed Vital Signs Vital Sign Reading Time Taken Comments Blood Pressure 116/66 03/21/2024 11:15 AM CHANNELER Pulse 81 03/21/2024 11:15 AM CHANNELER Temperature 36.8 C (98.2 F) 04/06/2023 3:08 PM CHANNELER Respiratory Rate 18 04/06/2023 3:08 PM CHANNELER Oxygen Saturation 93% 04/06/2023 3:08 PM CHANNELER Inhaled Oxygen Concentration - - Weight 86.5 kg (190 lb 11.2 oz) 024 11:15 AM CHANNELER Height 180.3 cm (5' 11 ) 03/21/2024 11: 15 AM CHANNELER Body Mass Index 26.6 03/21/2024 11:15 AM CHANNELER Plan of Treatment Not on file Procedures Procedure Name Priority Date/Time Associated Diagnosis Comments TSH Routine 05/25/2024 from Last 3 Months Results * (ABNORMAL) TSH (05/25/2024) Scribed TSH 51.02(A) 350.00 - 4.94 mcU/mL EXTERNAL LAB Blood 05/25/2024 us Historical Provider LAB BLOOD ORDERABLES Anne bueno Result EXTERNAL LAB from Last 3 Months Insurance [facility] Advance Directives For more information, please contact: [phone] * Full Code (Latest Code Status on File) Date Activated Date Inactivated Comments 04/05/2023 6:42 PM 04/06/2023 8:56 PM Care Teams Millinery Copyist Relationship Specialty Start Date End Date Dane Jane PA [address] [place] [address] PCP - General Family Practice 12/10/19 Roge Izaguirre MD [address] [place] [address] Consulting Physician Family Medicine 05/24/19 Emilio Mckeon MD [address] [facility] [address] [place] [address] Referring Physician Internal Medicine 06/08/19 Klaudia Cho DO [address] [facility] 1 [place] [address] Referring Physician Urology 06/08/19
--- OUTSIDE RECORDS SUMMARY | 2024-07-21 01:36 | XMS_ITS | Encounter Summary ---
Author Organization [facility] Health Address [address] [facility] [place] [address] Care Team Providers Care Smoking Pipe Liner Name Role Phone Anali Mccann APRN-SEWER HAND Primary Care Provider + Anali Mccann APRN-SEWER HAND Primary Care Provider + Dane Jane Primary Care Provider [phone] Reason for Visit * Reason Onset Date Comments Instructions 03/30/2019 Left VM message for withholding respiratory medications prior to Methacholine Challenge testing - VGall; CPFT; EMULSION COATER Encounter Details Date Type Department Care Team (Late st Contact Info) Description 03/30/2019 Telephone [facility] [address] [place] [phone] Argelia Oden RCP Instructions (Left VM message for withholding respiratory medications prior to Methacholine Challenge testing - VGall; CPFT; EMULSION COATER) Social History Tobacco Use Types Packs/Day Years Used Date Smoking Tobacco: Smoker, Current Status Unknown Cigarettes Smokeless Tobacco: Never Comments:1 pack a week Alcohol Use Standard Drinks/Week Comments No 0 (1 standard drink = 0.6 oz pur e alcohol) Sex and Gender Information Value Date Recorded Sex Assigned at Male 04/05/2022 9:34 PM HOSTLER HELPER Gender Identity Male 04/05/2022 9:34 PM HOSTLER HELPER Sexual Orientation Straight 04/05/2022 9: 34 PM HOSTLER HELPER documented as of this encounter Plan of Treatment Not on file documented as of this encounter Visit Diagnoses Not on filedocumented in this encounter Care Teams Smoking Pipe Liner Relationship Specialty Start Date End Date Anali Mccann APRN-CNP PCP - General 01/12/19 12/24/19 Anali Mccann APRN-CNP [address] [place] [address] PCP - General 12/25/19 01/17/20 Dane Jane PA [address] [place] [address] PCP - General 01/18/20 documented as of this encounter
--- OUTSIDE RECORDS SUMMARY | 2024-07-21 01:36 | XMS_ITS | Clinical Summary ---
Author Organization [facility] Address [address] [place] [address] Care Team Providers Care Pourer Buggy Ladle Name Role Phone Dane Jane Primary Care Provider [phone] Source Comments [facility],non-owned Affiliates and Associated Physician Practices is amultiple site organization consisting of ambulatory clinics and hospital sitesin [place], [place], [place] and [place]. This disclosure is being madepursuant to the Care Everywhere program and may not contain all information available regarding this patient. Last updated 18.[facility] Allergies Active Allergy Reactions Criticality Noted Date [...] Office Visit [facility] - Urology [address] [place] [address] Rd [address] [place] [address] Mary Acuna, CATY-STARLA Erectile dysfunction, unspecified erectile dysfunction type (Primary Dx) 07/19/2024 Travel 07/12/2024 8:00 AM CDT Office Visit [facility] - Urology [address] [facility] [address] [place] [address] Klaudia Cho DO Decreased sensation (Primary Dx); Erectile dysfunction, unspecified erectile dysfunction type; Pain in right testicle 07/12/2024 7:30 AM CDT - 07/12/2024 11:59 PM CDT Hospital Encounter [facility] [address] [place] [address] Klaudia Cho DO Urology Discharge Disposition: Home or Self Care 07/12/2024 Travel 05/25/2024 12:05 PM DIRECTOR SERVICE - 05/25/2024 11:59 PM DIRECTOR SERVICE Hospital Encounter [facility] OP DRAW STATION [address] [place] [address] Lisa Mercado, LANDMAN-BENEFITS PROCESSOR Discharge Disposition: Home or Self Care 05/25/2024 12:04 PM DIRECTOR SERVICE Hospital Encounter [facility] DIAGNOSTIC RAD OP [facility] [place] [address] Lisa Mercado, LANDMAN-BENEFITS PROCESSOR Discharge Disposition: Home or Self Care 05/25/2024 11:30 AM DIRECTOR SERVICE Office Visit [facility] - Neurology [address] [place] [address] Lisa Mercado LANDMAN-BENEFITS PROCESSOR Delmy Renee, LANDMAN-BENEFITS PROCESSOR Chronic daily headache (Primary Dx); Rebound headache; Medication overuse headache 05/25/2024 11:00 AM DIRECTOR SERVICE Office Visit [facility] - Neurosurgery [address] [place] [address] Lisa Mercado, LANDMAN-BENEFITS PROCESSOR Kristopher Betancourt MD Cervical disc herniation (Primary Dx); Chronic neck pain 05/25/2024 Travel 05/10/2024 Refill [facility] - Urology [address] [facility], [place] [address] Klaudia Cho DO Refill Request from Last 3 Months Immunizations Name Administration Dates Next Due Covfelisha Abakus primary monoval ent 12+ yr 0.3mL Purple [...] Assigned at Male 04/05/2022 9:34 PM DIRECTOR SERVICE Gender Identity Male 04/05/2022 9:34 PM DIRECTOR SERVICE Sexual Orientation Straight 04/05/2022 9: 34 PM DIRECTOR SERVICE Last Filed Vital Signs Vital Sign Reading Time Taken Comments Blood Pressure 118/76 07/19/2024 3:49 PM CDT Pulse 68 07/19/2024 3:49 PM CDT Temperature 36.8 C (98.3 F) 07/19/2024 3:49 PM CDT Respiratory Rate 18 07/19/2024 3:49 PM CDT Oxygen Saturation 96% 07/19/2024 3:49 PM CDT Inhaled Oxygen Concentration 21% 05/23/2023 5 :30 PM DIRECTOR SERVICE Weight 82.1 kg (181 lb) 07/19/2024 3:49 [...] this topic Medical Devices Implanted Type Area Evaluation Engineer Device Identifier Shelf Expiration Date Model / Serial / Lot Stent Uret 6fr 28cm Pgtl Crv Tpr Tip Implanted:Qty: 1 on 05/05/2019 by Klaudia Cho DO at [facility] Left: Dwayne Ulloa Scimed 03/04/2022 [id number] / / [id number] Procedures Procedure Name Priority Date/Time Associated Diagnosis Comments [place] INJECT CORPORA CAVERN,PHARM AGNT Routine 07/19/2024 4:19 PM CDT Erectile dysfunction, unspecified erectile dysfunction type TESTOSTERONE TOTAL Routine 07/12/2024 7: 43 AM CDT Erectile dysfunction, unspecified erectile dysfunction type XR CERVICAL SPINE 4 OR 5VW Routine 05/25/2024 12:22 PM DIRECTOR SERVICE Cervical disc herniation T4 FREE Routine 05/25/2024 12:09 PM DIRECTOR SERVICE Nasal turbinate hypertrophy TSH REFLEX FREE T4 Routine 05/25/2024 12 :09 PM DIRECTOR SERVICE Nasal turbinate hypertrophy HEMOGLOBIN A1C Routine 01/31/2024 2:46 PM CDT Paresthesia Numbness in feet Numbness in both hands Migraine without aura and without status migrainosus, not intractable Daily headache from Last 3 Months or Most Recently Relevant to Health Maintenance Results * [place] INJECT CORPORA CAVERN,PHARM AGNT (07/19/2024 4:19 PM [...] longer than 4 hours. Mary T Acuna, LANDMAN-BENEFITS PROCESSOR Mary Acuna LANDMAN-BENEFITS PROCESSOR PROCEDURE/MINOR SURGICAL ORDERABLES * TESTOSTERONE TOTAL (07/12/2024 7:43 AM CDT) Testosterone 552 240 - 871 ng/dL 07/12/2024 8:41 AM CDT [facility] Blood BLOOD SPECIMEN / Unknown Lab Venipuncture / Unknown 07/12/2024 7:43 AM CDT 07/12/2024 7:44 AM CDT Klaudia Edyta Cho DO LAB - CHEMISTRY OR DERABLES [facility] [address] [place] [id number] * XR Cervical Spine 4 or 5Vw (05/25/2024 12:22 PM DIRECTOR SERVICE) Anatomical Region Laterality Modality Spine Digital Radiogra phy 05/25/2024 2:57 PM DIRECTOR SERVICE Impressions 05/25/2024 2:58 PM DIRECTOR SERVICE IMPRESSION: No acute fracture or dislocation. > Interpreting Provider: Lázaro Palma on 05/25/2024 2:58 PM Narrative 05/25/2024 2:58 PM DIRECTOR SERVICE PROCEDURE: XR CERVICAL SPINE 4 OR 5VW [...] Palma on 05/25/2024 2:58 PM Lisa Mercado LANDMAN-BENEFITS PROCESSOR DIAGNOSTIC I MAGING ORDERABLES * (ABNORMAL) TSH REFLEX FREE T4 (05/25/2024 12:09 PM DIRECTOR SERVICE) Pathologist [facility] TSH 51.202(H) 0.350 - 4.940 uIU/mL 05/25/2024 1:44 PM DIRECTOR SERVICE [facility] Blood BLOOD SPECIMEN / Unknown Lab Venipuncture / Unknown 05/25/2024 12:09 PM DIRECTOR SERVICE 05/25/2024 12:58 PM DIRECTOR SERVICE Rodney Howard MD LAB - CHEMISTRY [facility] [address] [address], [facility] [phone] * T4 FREE (05/25/2024 12:09 PM DIRECTOR SERVICE) [facility] T4 Free 0.7 0.7 - 1.5 ng/dL 05/25/2024 2:18 PM DIRECTOR SERVICE [facility] Blood BLOOD SPECIMEN / Unknown Lab Venipuncture / Unknown 05/25/2024 12:09 PM DIRECTOR SERVICE 05/25/2024 12:58 PM DIRECTOR SERVICE Rodney Howard MD LAB - CHEMISTRY DIRK [facility] [address] [address], [facility] [phone] * HEMOGLOBIN A1C (01/31/2024 2:46 PM CDT) [facility] Hemoglobin A1c 5.4 <=5.6 % 02/01/2024 9:30 AM CDT [facility] Estimated Average Glucose 108 mg/dL 02/01/2024 9:30 AM CDT [facility] Comment: HbA1c Interpretation: Normal : < 5.7% Pre-diabetes: 5.7-6.4% Diabetes: Equal to or greater than 6.5% Test results diagnostic of diabetes should be repeated for confirmation. Treatment target values recommended by ADA and other clinical organizations should be used to evaluate metabolic control in patients. Reference: [place] Diabetes Association, Standards of Care in Diabetes -2020 In patients 70 years and older consider HbA1c target range of 7.0-7.5% (Reference: Rajinder Alejandre et al. JAMDA. 2012) The Sebia assay for the measurement of HbA1c is a National Glycohemoglobin Standardization Program (NGSP) certified method. Blood BLOOD SPECIMEN / Unknown Lab Venipuncture / Unknown 01/31/2024 2:46 PM CDT 01/31/2024 3:53 PM CDT Delmy Renee LANDMAN-BENEFITS PROCESSOR LAB - CHEMISTR Y ORDERABLES [facility] [address] [place] [address], [facility] [phone] from Last 3 Months or Most Recently Relevant to Health Maintenance Advance Directives * Full Code (Latest Code Status on File) Date Activated Date Inactivated Comments 05/03/2019 4:23 PM 05/07/2019 4:38 PM Care Teams Pourer Buggy Ladle Relationship Specialty Start Date End Date Dane Jane PA [address] [place] [address] PCP - General 01/18/20
--- OUTSIDE RECORDS SUMMARY | 2024-07-21 01:36 | XMS_ITS | Encounter Summary ---
Author Organization [facility] Health Address [address] [facility] [place] [address] Care Team Providers Care Regulatory Affairs Director Name Role Phone Dane Jane Primary Care Provider [phone] Reason for Visit * Reason Comments Refill Request Encounter Details Date Type Department Care Team (Late st Contact Info) Description 06/15/2021 Refill [facility] Pul[facility], Critical Care and Sleep Medicine [address] [facility] [place] [phone] Emilio Mckeon MD [address] [facility] 2L DIV OF PULMONARY/[place] [address] Refill Request Social History Tobacco Use Types Packs/Day Years Used Date Smoking Tobacco: Former Cigarettes 0.1 21 2 000 - 04/18/2020 Smokeless Tobacco: Never Comments:2-3 cigarettes a da y at most Alcohol Use Standard Drinks/Week Comments No 0 (1 standard drink = 0.6 oz pur e alcohol) Sex and Gender Information Value Date Recorded Sex Assigned at Male 04/05/2022 9:34 PM PARK MAINTENANCE TECHNICIAN Gender Identity Male 04/05/2022 9:34 PM PARK MAINTENANCE TECHNICIAN Sexual Orientation Straight 04/05/2022 9: 34 PM PARK MAINTENANCE TECHNICIAN documented as of this encounter Functional Status [...] (HCC) documented in this encounter Care Teams Regulatory Affairs Director Relationship Specialty Start Date End Date Dane Jane PA [address] [place] [address] PCP - General 01/18/20 documented as of this encounter
--- OUTSIDE RECORDS SUMMARY | 2024-07-21 01:36 | XMS_ITS | Encounter Summary ---
Author Organization [facility] Care Team Providers Care Caltrans Equipment Operator Name Role Phone Unknown, Notinfile Primary Care Provider Unavail able No, Physician Primary Care Provider Dane Tavarez MD Primary Care Provider [phone] Ro Luna Primary Care Provider [phone] Roge Izaguirre MD Unavailable + [phone] Emilio Mckeon MD Unavailable [phone] Marquis, Klaudia Ferris Unavailable [phone] Ro Luna Primary Care Provider [phone] Dane Jane Primary Care Provider [phone] Encounter Details Date Type Department Care Team (Latest Contact Info) Description 12/11/2017 Orders Only [facility] ProviderBraydon MD [address] [place] [address] Social History Tobacco Use Types Packs/Day Years Used Date Smoking Tobacco: Never Assessed Sex and Gender Information Value Date Recorded Sex Assigned at Not on file Legal Sex Male 7:33 PM UNIT SECY Gender Identity Not on file Sexual Orientation [...] COVID: Suspected 04/05/2023 04/05/2023 04/05/2023 12:57 PM UNIT SECY documented as of this encounter Care Teams Caltrans Equipment Operator Relationship Specialty Start Date End Date Unknown, Notinfile PCP - General 11/23/18 11/26/18 No, Physician PCP - General 11/27/18 04/25/19 Dane Tavarez MD PCP - General Family Medicine 04/26/19 05/23/19 Ro Luna PA [address] [place] [address] PCP - General Family Medicine 05/24/19 12/09/19 Ro Luna PA [address] [place] [address] PCP - General 11/10/18 11/22/18 Dane Jane PA [address] [place] [address] PCP - General Family Practice 12/10/19 Roge Izaguirre MD [address] [place], [place] [phone] Consulting Physician Family Medicine 05/24/19 Emilio Mckeon MD [address] [facility] [address] [place] [address] Referring Physician Internal Medicine 06/08/19 Klaudia Cho DO [address] [place] [address] [place] [address] Referring Physician Urology 06/08/19 documented as of this encounter
--- OUTSIDE RECORDS SUMMARY | 2024-07-21 01:36 | XMS_ITS | Encounter Summary ---
Author Organization [facility] Health Address [address] [place] [address] Care Team Providers Care Senior Systems Architect Name Role Phone Dane Jane Primary Care Provider [phone] Reason for Visit * Reason Onset Date Comments Reminder Call 04/04/2024 No answer. Left voicemail. Encounter Details Date Type Department Care Team (Late st Contact Info) Description 04/04/2024 Telephone [facility] - Pulmonology [address] [facility] [place] [address] Rd Quintero MD [address] [place] [address] PULMONARY MED [address] [place] [address] Reminder Call (No answer. Left voicemail.) [...] Sex Assigned at Male 04/05/2022 9:34 PM DISASSEMBLER Gender Identity Male 04/05/2022 9:34 PM DISASSEMBLER Sexual Orientation Straight 04/05/2022 9: 34 PM DISASSEMBLER documented as of this encounter Functional Status [...] appointment but no answer. Left a voicemail. SSEMBLER documented in this encounter Plan of Treatment Not on file documented as of this encounter Visit Diagnoses Not on filedocumented in this encounter Care Teams Senior Systems Architect Relationship Specialty Start Date End Date Dane Jane PA [address] [place] [address] PCP - General 01/18/20 documented as of this encounter
--- OUTSIDE RECORDS SUMMARY | 2024-07-21 01:36 | XMS_ITS | Encounter Summary ---
Author Organization [facility] Facility Care Team Providers Care Manual Arts Therapy Teacher Name Role Phone Unknown, Notinfile Primary Care Provider Unavail able No, Physician Primary Care Provider Dane Tavarez MD Primary Care Provider [phone] Ro Luna Primary Care Provider [phone] Roge Izaguirre MD Unavailable + [phone] Emilio Mckeon MD Unavailable [phone] Marquis, Klaudia Ferris Unavailable [phone] Ro Luna Primary Care Provider [phone] Dane Jane Primary Care Provider [phone] Encounter Details Date Type Department Care Team (Latest Contact Info) Description 02/21/2018 Orders Only [facility]IN[facility] ProviderBraydon MD [address] [place] [address] Social History Tobacco Use Types Packs/Day Years Used Date Smoking Tobacco: Never Assessed Sex and Gender Information Value Date Recorded Sex Assigned at Not on file Legal Sex Male 7:33 PM MANAGER PEOPLE Gender Identity Not on file Sexual Orientation Not on file documented as of this encounter Plan of Treatment Not on file documented as of this encounter Procedures Procedure Name Priority Date/Time Associated Diagnosis Comments CARDIOLOGY REPORT 02/21/2018 12: 00 AM MANAGER PEOPLE documented in this encounter Results * CARDIOLOGY REPORT (02/21/2018 12:00 AM MANAGER PEOPLE) Anatomical Region Laterality Modality Other Narrative 02/21/2018 12:00 AM MANAGER PEOPLE Ordered by an unspecified provider. us Historical Provider [facility] MICHAEL NAJERA Final Result documented in this encounter Visit Diagnoses Not on filedocumented in this encounter Additional Health Concerns Infection Onset Date Last Indicated Resolved Time COVID: Suspected 04/05/2023 04/05/2023 04/05/2023 12:57 PM MANAGER PEOPLE documented as of this encounter Care Teams Manual Arts Therapy Teacher Relationship Specialty Start Date End Date Unknown, Notinfile PCP - General 11/23/18 11/26/18 No, Physician PCP - General 11/27/18 04/25/19 Dane Tavarez MD PCP - General Family Medicine 04/26/19 05/23/19 Ro Luna PA [address] [place], [place] [phone] PCP - General Family Medicine 05/24/19 12/09/19 Ro Luna PA [address] [place] [address] PCP - General 11/10/18 11/22/18 Dane Jane PA [address] [place] [address] PCP - General Family Practice 12/10/19 Roge Izaguirre MD [address] [place], [place] [id number] Consulting Physician Family Medicine 05/24/19 Emilio Mckeon MD [address] [facility] [address] [place] [address] Referring Physician Internal Medicine 06/08/19 Klaudia Cho DO [address] [place] [address] [place] [address] Referring Physician Urology 06/08/19 documented as of this encounter
--- OUTSIDE RECORDS SUMMARY | 2024-07-21 01:36 | XMS_ITS | Clinical Summary ---
Author Organization [facility] Address [address], [place] [address] Phone Care Team Providers Care Board Setter Name Role Phone Dane Jane Primary Care Provider [phone] Allergies Active Allergy Reactions Criticality Noted Date [...] on file Legal Sex Male 7:58 AM TRUCK BODY REPAIRER Gender Identity Not on file Sexual Orientation [...] Insurance MEDICAID [employer] Care Teams Board Setter Relationship Specialty Start Date End Date Dane Jane PAC [address] [place] [address] PCP - General Physician Exercise Scientist 05/01/21
--- OUTSIDE RECORDS SUMMARY | 2024-07-21 01:37 | XMS_ITS | Clinical Summary ---
Author Organization [facility] Address [address] [place] [address] Phone Care Team Providers Care Search Marketing Analyst Name Role Phone Unavailable Primary Care Provider Unavailabl e Social History Tobacco Use Types Packs/Day Years Used Date Smoking Tobacco: Never Assessed Sex and Gender Information Value Date Recorded Sex Assigned at Not on file Legal Sex Male 10:00 AM LEAD MECHANIC Gender Identity Not on file Sexual Orientation Not on file Plan of Treatment Health Maintenance Due Date Last Done Comments DTAP/TDAP/TD VACCINES (1 - Tdap) 2002 HEPATITIS B VACCINES (1 of 3 - 19+ 3-dose series) 2002 INFLUENZA VACCINE (#1) 2023 01/22/2019 HPV VACCINES Aged Out No longer eligi ble based on patient's age to complete this topic Insurance [place]ID [place]
--- OUTSIDE RECORDS SUMMARY | 2024-07-21 01:37 | XMS_ITS | Clinical Summary ---
Author Organization [facility] Jose L at [facility] [place] Address [address] [place] [address] Care Team Providers Care Terminal Operations Manager Name Role Phone Roge Izaguirre MD Unavailable [phone] Emilio Mckeon MD Unavailable [phone] Klaudia Cho DO Unavailable Dane Jane Primary Care Provider Allergies Active [...] 06/08/2019 Assessment & Plan (06/08/2019 10:05 AM [employer]): I explained to patient I would refill the Xanax at 1 mg b.i.d. only until we can get him to see a psychiatrist. Patient needs to not use the medical marijuana while taking the Xanax. Requested records from [facility] maintenance examination 06/08/2019 Overview (06/08/2019): PMH: 06/08/2019 Last colonoscopy/cologuard: 03/2019 Last tdap: 11/10/2018 Last Prevnar/pneumovax:2019 Last Shingrix: Last eye exam: Assessment & Plan (06/08/2019 10:06 AM [employer]): PMH: 06/08/2019 Last colonoscopy/cologuard: 03/2019 Last tdap: 11/10/2018 Last Prevnar/pneumovax:2019 Last Shingrix: Last eye exam: Requested record BMI 21.0-21.9, adult 06/08/2019 Assessment & Plan (06/08/2019 10:04 AM [employer]): BMI is okay. Normal range is 18-25 and overweight is 25-30. Continue to work on eating healthy and exercising at least 150 minutes per week. Cystic fibrosis 03/21/2019 Assessment & Plan (06/08/2019 10:04 AM [employer]): Followed by pulmonary Anxiety 04/07/2018 Syncope and collapse 04/07/2018 Hypothyroid 02/10/2018 Assessment & Plan (06/08/2019 10:05 AM [employer]): Patient has been out of meds since March. Refilled meds and patient to check his labs in 6-8 weeks Irritable bowel syndrome wit h both constipation and diarrhea 02/10/2018 Assessment & Plan (06/08/2019 10:05 AM [employer]): Stable continue meds Panlobular emphysema 02/10/2018 Assessment & Plan (06/08/2019 10:05 AM [employer]): Followed by pulmonary Tobacco use 02/10/2018 Assessment & Plan (06/08/2019 10:05 AM [employer]): Quitting smoking is one of the most important things you can do for your health. Contact 3-296-LTEL-NOW or www.smokefree.gov for more information. 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 Not on file Not on file Obstetrics History Last Filed Vital Signs Vital Sign Reading Time Taken Comments Blood Pressure 116/66 03/21/2024 11:15 AM [employer] Pulse 81 03/21/2024 11:15 AM [employer] Temperature 36.8 C (98.2 F) 04/06/2023 3:08 PM [employer] Respiratory Rate 18 04/06/2023 3:08 PM [employer] Oxygen Saturation 93% 04/06/2023 3:08 PM [employer] Inhaled Oxygen Concentration - - Weight 86.5 kg (190 lb 11.2 oz) 024 11:15 AM [employer] Height 180.3 cm (5' 11 ) 03/21/2024 11: 15 AM [employer] Body Mass Index 26.6 03/21/2024 11:15 AM [employer] Plan of Treatment Health Maintenance Due Date [...] EXTERNAL LAB from Last 3 Months Insurance IDAL [facility] OTHER Address: [address] [place] [id number] [facility] Advance Directives For more information, please contact: [phone] * Full Code (Latest Code Status on File) Date Activated Date Inactivated Comments 04/05/2023 6:42 PM 04/06/2023 8:56 PM Care Teams Terminal Operations Manager Relationship Specialty Start Date End Date Dane Jane PA [address] [place] [address] PCP - General Family Practice 12/10/19 Roge Izaguirre MD [address] [place] [id number] Consulting Physician Family Medicine 05/24/19 Emilio Mckeon MD [address] [facility] [address] [place] [address] Referring Physician Internal Medicine 06/08/19 Klaudia Cho DO [address] [place] [address] Referring Physician Urology 06/08/19
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
[2024-07-21] MEDS: MORPHINE SULFATE (*CRX) 15 MG TABCR PO (02:27)
[2024-07-21 02:53] LABS: Fractional Inspired Oxygen 21 %; PCO2 VBG 55.6 mmHg (42.0-48.0); PO2 VBG 43.2 mmHg (35.0-45.0)
[2024-07-21 02:56] LABS: Device ROOM AIR; pH VBG 7.195 (7.300-7.400)
[2024-07-21 04:05] VITALS: TEMP 36.5
[2024-07-21 04:18] LABS: Add Urine Microscopic? NO; Appearance Urine Clear (Clear); Bilirubin Urine Negative (Negative); Blood Urine Negative (Negative); Color Urine Yellow (Yellow); Glucose Urine UA Negative (Negative); Ketones Urine Negative (Negative); Leukocyte Esterase Ur Negative LEU/UL (Negative); Nitrate Urine Negative (Negative); Protein Urine Negative (Negative); Specific Grav Ur 1.011 (1.001-1.035); Urobilinogen Urine 0.2 mg/dL (<2.0); pH Urine 6.5 (5.0-9.0)
[2024-07-21 04:21] VITALS: BP 110/79; PULSE 76; RESP 15; O2SAT 99
[2024-07-21 04:34] LABS: Amphetamine Screen Urine Negative (Negative); Barbiturate Screen Urine Negative (Negative); Benzodiazepines Screen Urine Positive (Negative); Cannabinoid Screen Urine Negative (Negative); Cocaine Screen Urine Negative (Negative); Methadone Screen Urine Negative (Negative); Opiate Screen Urine Negative (Negative); Phencyclidine Screen Urine Negative (Negative)
== END 2024-07-21 04:22 | disposition home or self-care (01) ==
PROVIDERS: Emergency Provider Student in an Organized Health Care Education/Training Program; PCP Physician Assistant
DX: N48.33 Priapism, drug-induced (principal); T50.995A Adverse effect of other drugs, medicaments and biological substances, initial encounter; Z85.850 Personal history of malignant neoplasm of thyroid; F17.210 Nicotine dependence, cigarettes, uncomplicated
CPT/HCPCS: 36415; 54220; 80307; 81003; 82803; 99283; A9270

== ENCOUNTER 2024-12-31 08:08 | Emergency (ER) | payer OTHER, SELFPAY ==
--- OUTSIDE RECORDS SUMMARY | 2015-06-16 09:10 | XMS_ITS | Continuity of Care Document ---
Author Organization [facility] Address [address] [place] [address] Phone Care Team Providers Care Survey Supervisor Name Role Phone Inez Brian DO Unavailable [...] Date Provider Providers Copied on Encounter [facility], [address] [place] [address], [id number], [phone] [facility] No Information 6 Snehal Wiley. [address] [place] [address], [place] [address], [place], [place], [id number] , [place]. tel: [phone] Office consultation , [facility], [address] [place] [address], [id number], [place] tel:[phone] [facility] Unsp injury of left wrist, hand and finger(s), init encntr 6 Maday Brunner. [address] [place] [address], [place] [address], [place], [place], [id number] , [place]. tel: [phone] [facility], [address] [place] [address], [place], [id number], [place] [phone] [facility] Encounter for other administrative examinationsUnsp injury of left wrist, hand and finger(s), init encntr 6 Snehal Wiley. [address], [address], [place], [place], [id number] , [place]. tel: [phone] Family History Family Member Type Diagnosis Age At Onset Maternal grandmother Problem (finding) Diabetes Maternal grandmother Problem (finding) hypertension Maternal grandmother Problem (finding) Heart disease Maternal grandmother Problem (finding) Cancer, unknown Payers Payer name Insurance type Covered libertarian [...]
--- NOTE | ~2024-12-31 | CT_ITS ---
EXAM: CT abdomen pelvis w con - 12/31/2024 9:30 CDT History: 39 years old Male with pain TECHNIQUE: Multidetector CT of the abdomen and pelvis with intravenous contrast. Coronal and sagittal reformats were also provided for review. Automatic exposure control was used for this study. CONTRAST: 100 cc of Optiray 350 was used for this study. COMPARISON: None Available. FINDINGS: VISUALIZED CHEST: Visualized lungs are clear. ABDOMEN and PELVIS: LIVER: Within normal limits. GALLBLADDER: No calcified gallstones. BILE DUCTS: No dilatation. SPLEEN: Within normal limits. PANCREAS: Within normal limits. ADRENAL GLANDS: Within normal limits. KIDNEYS and URETERS: No hydronephrosis or hydroureter. No nephroureterolithiasis. URINARY BLADDER: Within normal limits. STOMACH and BOWEL: No abnormal bowel wall thickening. No obstruction. REPRODUCTIVE ORGANS: Within normal limits. MESENTERY/PERITONEAL CAVITY: No free fluid or pneumoperitoneum. LYMPH NODES: No abdominal or pelvic lymphadenopathy. ABDOMINAL WALL: Within normal limits. VASCULATURE: Within normal limits. MUSCULOSKELETAL: Within normal limits. IMPRESSION: No evidence of acute pathology in the abdomen and pelvis. Reviewed, dictated and finalized at location N.
[2024-12-31 08:16] VITALS: BP 123/74; PULSE 103; RESP 18; TEMP 36.8; O2SAT 96
[2024-12-31 08:37] LABS: Hematocrit 43.8 % (42.0-52.0); Hemoglobin 15.1 g/dL (14.0-18.0); Immature Granulocyte Percent A 0.7 % (0-0.5); Lymphocytes Absolute Auto 2.15 K/mm3 (0.9-3.2); Mean Corpuscular HGB Conc 34.5 g/dl (32-36); Mean Corpuscular Hemoglobin 31.0 pg (26-34); Mean Corpuscular Volume 89.9 fl (80-100); Nucleated Red Blood Cells Absolute Auto 0.000 K/mm3 (0.0-0.012); Nucleated Red Blood Cells Perc 0.0 % (0.0-0.2); Platelet Count Result 288 k/mm3 (150-375); Red Blood Count 4.87 M/mm3 (4.6-6.20); White Blood Count 7.3 K/mm3 (4.5-10.0)
--- OUTSIDE RECORDS SUMMARY | 2024-12-31 08:39 | XMS_ITS | Encounter Summary ---
Author Organization [facility] Care Team Providers Care Filter Machine Operator Name Role Phone Unknown, Notinfile Primary Care Provider Unavail able No, Physician Primary Care Provider Dane Tavarez MD Primary Care Provider [phone] Ro Luna Primary Care Provider [phone] Roge Izaguirre MD Unavailable + [phone] Emilio Mckeon MD Unavailable [phone] Klaudia Cho DO Unavailable [phone] Ro Luna Primary Care Provider [phone] Dane Jane Primary Care Provider [phone] Encounter Details Date Type Department Care Team (Latest Contact Info) Description 02/10/2018 Orders Only [facility] ProviderBraydon MD [address] [place] [id number] Social History Tobacco Use Types Packs/Day Years Used Date Smoking Tobacco: Never Assessed Sex and Gender Information Value Date Recorded Sex Assigned at Not on file Legal Sex Male 7:33 PM PHYSIOLOGIST Gender Identity Not on file Sexual Orientation [...] COVID: Suspected 04/05/2023 04/05/2023 04/05/2023 12:57 PM PHYSIOLOGIST documented as of this encounter Care Teams Filter Machine Operator Relationship Specialty Start Date End Date Unknown, Notinfile PCP - General 11/23/18 11/26/18 No, Physician PCP - General 11/27/18 04/25/19 Dane Tavarez MD PCP - General Family Medicine 04/26/19 05/23/19 Ro Luna PA [address] [place] [address] PCP - General Family Medicine 05/24/19 12/09/19 Ro Luna PA [address] [place] [address] PCP - General 11/10/18 11/22/18 Dane Jane PA [address] [place] [address] PCP - General Family Practice 12/10/19 Roge Izaguirre MD [address] [place] [address] Consulting Physician Family Medicine 05/24/19 Emilio Mckeon MD [address] [place] [address] Referring Physician Internal Medicine 06/08/19 Klaudia Cho DO [address] [facility] [address] [place] [address] Referring Physician Urology 06/08/19 documented as of this encounter
--- OUTSIDE RECORDS SUMMARY | 2024-12-31 08:39 | XMS_ITS | Encounter Summary ---
Author Organization [facility] Address [address] [facility] [place] [address] Care Team Providers Care Haunted History Tour Guide Name Role Phone Dane Jane Primary Care Provider [phone] Reason for Visit * Reason Comments Refill Request Encounter Details Date Type Department Care Team (Late st Contact Info) Description 06/15/2021 Refill [facility] [address] [facility] [place] [id number] Emilio Mckeon MD [address] [facility] [address] DIV OF PULMONARY/[place] [address] Refill Request Social History Tobacco Use Types Packs/Day Years Used Date Smoking Tobacco: Former Cigarettes 0.1 21 2 000 - 04/18/2020 Smokeless Tobacco: Never Comments:2-3 cigarettes a da y at most Alcohol Use Standard Drinks/Week Comments No 0 (1 standard drink = 0.6 oz pur e alcohol) Sex and Gender Information Value Date Recorded Sex Assigned at Male 04/05/2022 9:34 PM CANDY [employer]PER Legal Sex Male 11:46 AM CDT Gender Identity Male 04/05/2022 9:34 PM CANDY [employer]PER Sexual Orientation Straight 04/05/2022 9: 34 PM CANDY [employer]PER documented as of this encounter Functional Status * Is person deaf or have serious hearing difficulty? Answer Date of Assessment Author No 03/19/2020 2:20 PM Anaid Molina RN * Is person blind or have serious difficulty seeing? Answer Date of Assessment Author No 03/19/2020 2:20 PM Anaid Molina RN * Does person have serious difficulty walking/climbing stairs? Answer Date of Assessment Author No 03/19/2020 2:20 PM Anaid Molina RN * Does person have difficulty dressing/bathing? Answer Date of Assessment Author No 03/19/2020 2:20 PM Anaid Molina RN * Does person have difficulty doing errands alone? Answer Date of Assessment Author No 03/19/2020 2:20 PM Anaid Molina RN documented as of this encounter Mental Status * Does person have difficulty concentrating/remembering/making decisions? Answer Entry Date Author No 03/19/2020 2:20 PM Anaid Molina RN documented in this encounter Plan of Treatment Not on file documented as of this encounter Visit Diagnoses Diagnosis Severe persistent asthma without complication (HCC) documented in this encounter Care Teams Haunted History Tour Guide Relationship Specialty Start Date End Date Dane Jane PA [address] [place] [address] PCP - General 01/18/20 documented as of this encounter
--- OUTSIDE RECORDS SUMMARY | 2024-12-31 08:39 | XMS_ITS | Clinical Summary ---
Author Organization [facility] Address [address] [place] [address] Care Team Providers Care Ophthalmic Lens Inspector Name Role Phone Dane Jane Primary Care Provider Source Comments [facility],non-owned Affiliates and Associated Physician Practices is amultiple site organization consisting of ambulatory clinics and hospital sitesin [place], [place], [place] and [place]. This disclosure is being madepursuant to the Care Everywhere program and may not contain all information available regarding this patient. Last updated 18.[facility] Allergies Active Allergy Reactions Criticality Noted Date Comments Food Shortness of Breath High 05/11/2023 onions Penicillins Urticaria,Unknown Medium 07/17/2018 Sulfa Drugs Unknown 07/17/2018 Sulfacetamide Sodium-Sulfur Unknown 12/06/19 19 Medications * Be aware that medications may not be up to date on this document. Alwaysverify current medications with the patient. ALPRAZolam (XANAX) 1 MG tablet Take 1 (one) tablet by mouth 2 times daily 0 Active EPINEPHrine (EPIPEN) 0.3 MG/0.3ML auto-injector pen Inject 0.3 mL into muscle once as needed 0 Active naproxen (Naprosyn) 500 MG tablet Take 1 (one) tablet by mouth 2 times daily Active gabapentin (Neurontin) 300 MG capsuleIndicati ons:Paresthesia ,Numbness in feet,Numbness in both hands,Migraine without aura and without status migrainosus, not intractable,Malinda ly headache Take 1 (one) capsule by mouth at bedtime 30 capsule 5 4 Active Additional Information Patient not taking.Reported on 07/12/2024 levothyroxine (Synthroid) 112 MCG tablet Take 1 (one) tablet by mouth once daily 4 03/21/20 25 Active ALPRAZolam (Xanax) 2 MG tablet Take 1 (one) tablet by mouth 2 times daily as needed 4 Active omeprazole (PriLOSEC) 20 MG capsule Take 1 (one) capsule by mouth once daily 30 capsule 4 Active Additional Information Patient not taking.Reported on 07/12/2024 sildenafil (Viagra) 100 MG tablet TAKE 1 TABLET BY MOUTH EVERY DAY NEEDED FOR ERECTILE DYSFUNCTION 30 tablet 5 Active topiramate (Topamax) 50 MG tabletIndicatio ns:Chronic daily headache Take 1 (one) tablet by mouth at bedtime 30 tablet 4 5 Active Active Problems Problem Noted Date Diagnosed [...] emphysema 04/07/2018 12/25/19 20 Cough 04/07/2018 04/02/2019 Immunizations Immunization Administration Dates Next Due Foound primary monoval ent 12+ yr 0.3mL Purple [...] Date Smoking Tobacco: Some Days Cigarettes 0.1 25.7 Started: 1999 Smokeless Tobacco: Never Tobacco Cessation:Ready [...] Sex Assigned at Male 04/05/2022 9:34 PM [employer] Legal Sex Male 11:46 AM CDT Gender Identity Male 04/05/2022 9:34 PM [employer] Sexual Orientation Straight 04/05/2022 9: 34 PM [employer] Last Filed Vital Signs Vital Sign Reading Time Taken Comments Blood Pressure 118/76 07/19/2024 3:49 PM CDT Pulse 68 07/19/2024 3:49 PM CDT Temperature 36.8 C (98.3 F) 07/19/2024 3:49 PM CDT Respiratory Rate 18 07/19/2024 3:49 PM CDT Oxygen Saturation 96% 07/19/2024 3:49 PM CDT Inhaled Oxygen Concentration 21% 05/23/2023 5 :30 PM [employer] Weight 82.1 kg (181 lb) 07/19/2024 3:49 PM CDT Height 180.3 cm (5' 11) 07/19/2024 3:49 PM CDT Body Mass Index 25.24 07/19/2024 3:49 PM CDT Plan of Treatment Health Maintenance Due Date Last Done Comments HIV SCREENING 1998 HEPATITIS C SCREENING 04/25/2001 HEPATITIS B VACCINE (1 of 3 - 19+ 3-dose series) 2002 HPV VACCINE (1 - 3-dose SCDM series) 2010 DEPRESSION SCREENING 04/18/2024 LIPID TESTING 11/22/2024 11/23/2019, 11/23/2019 COVID-19 VACCINE ( - season) 2024 09/29/2020, 09/05/2020 INFLUENZA VACCINE (#1) 2024 4, 02/03/2021, 01/22/2019, Additional history exists SCREENING FOR DIABETES 01/30/2027 4, 03/05/2020, 05/07/2019, Additional history exists DTAP/TDAP/TD VACCINES (2 - Td or Tdap) 11/10/2028 11/10/2018 ZOSTER VACCINE (1 of 2) 2033 PNEUMOCOCCAL VACCINE Completed 01/23/2024, 10/17/19 HIB VACCINE Aged Out No longer eligi ble based on patient's age to complete this topic MENINGOCOCCAL (Group B) VACCINE SHARED DECISION-MAKING Aged Out No longer eligible based on patient's age to complete this topic MENINGOCOCCAL GROUPS A/C/Y/W VACCINE Aged Out No longer eligible based on patient's age to complete this topic Medical Devices Implanted Type Area Executor Of Estate Device Identifier Shelf Expiration Date Model / Serial / Lot Stent Uret 6fr 28cm Pgtl Crv Tpr Tip Implanted:Qty: 1 on 05/05/2019 by Klaudia Cho DO at [facility] Left: Ureter [employer] 03/04/2022 [id number] / / [id number] Procedures Procedure Name Priority Date/Time Associated Diagnosis Comments HEMOGLOBIN A1C Routine 01/31/2024 2:46 PM CDT Paresthesia Numbness in feet Numbness in both hands Migraine without aura and without status migrainosus, not intractable Daily headache from Last 3 Months or Most Recently Relevant to Health Maintenance Results * HEMOGLOBIN A1C (01/31/2024 2:46 PM CDT) Hemoglobin A1c 5.4 <=5.6 % 02/01/2024 9:30 AM CDT [facility] Estimated Average Glucose 108 mg/dL 02/01/2024 9:30 AM CDT [facility] Comment: HbA1c Interpretation: Normal : < 5.7% Pre-diabetes: 5.7-6.4% Diabetes: Equal to or greater than 6.5% Test results diagnostic of diabetes should be repeated for confirmation. Treatment target values recommended by ADA and other clinical organizations should be used to evaluate metabolic control in patients. Reference: [place] Diabetes Association, Standards of Care in Diabetes -2020 In patients 70 years and older consider HbA1c target range of 7.0-7.5% (Reference: Rajinder Alejandre, et al. JAMDA. 2012) The Sebia assay for the measurement of HbA1c is a National Glycohemoglobin Standardization Program (NGSP) certified method. Blood BLOOD SPECIMEN / Unknown Lab Venipuncture / Unknown 01/31/2024 2:46 PM CDT 01/31/2024 3:53 PM CDT us Delmy Renee [facility]ILY [employer]YER-WILDLIFE CONSERVATIONIST LAB - CHEMISTRY ORDERA BLES Final Result [facility] [address] [place] [id number], [facility] [phone] from Last 3 Months or Most Recently Relevant to Health Maintenance Insurance [facility] Advance Directives * Full Code (Latest Code Status on File) Date Activated Date Inactivated Comments 05/03/2019 4:23 PM 05/07/2019 4:38 PM Care Teams Ophthalmic Lens Inspector Relationship Specialty Start Date End Date Dane Jane PA [address] [place] [address] PCP - General 01/18/20
--- OUTSIDE RECORDS SUMMARY | 2024-12-31 08:39 | XMS_ITS | Encounter Summary ---
Author Organization [facility] Facility Care Team Providers Care Cemetery Vault Installer Name Role Phone Unknown, Notinfile Primary Care Provider Unavail able No, Physician Primary Care Provider Dane Tavarez MD Primary Care Provider [phone] Ro Luna Primary Care Provider [phone] Roge Izaguirre MD Unavailable + [phone] Emilio Mckeon MD Unavailable + [phone] Klaudia Cho DO Unavailable [phone] Ro Luna Primary Care Provider [phone] Dane Jane Primary Care Provider [phone] Encounter Details Date Type Department Care Team (Latest Contact Info) Description 02/21/2018 Orders Only [facility] CLINCONV ProviderBraydon MD [address] [place] [address] Social History Tobacco Use Types Packs/Day Years Used Date Smoking Tobacco: Never Assessed Sex and Gender Information Value Date Recorded Sex Assigned at Not on file Legal Sex Male 7:33 PM ARBOR END MAINSPRING FORMER Gender Identity Not on file Sexual Orientation Not on file documented as of this encounter Plan of Treatment Not on file documented as of this encounter Procedures Procedure Name Priority Date/Time Associated Diagnosis Comments CARDIOLOGY REPORT 02/21/2018 12: 00 AM ARBOR END MAINSPRING FORMER documented in this encounter Results * CARDIOLOGY REPORT (02/21/2018 12:00 AM ARBOR END MAINSPRING FORMER) Anatomical Region Laterality Modality Other Narrative 02/21/2018 12:00 AM ARBOR END MAINSPRING FORMER Ordered by an unspecified provider. us Historical Provider [facility] MICHAEL NAJERA Final Result documented in this encounter Visit Diagnoses Not on filedocumented in this encounter Additional Health Concerns Infection Onset Date Last Indicated Resolved Time COVID: Suspected 04/05/2023 04/05/2023 04/05/2023 12:57 PM ARBOR END MAINSPRING FORMER documented as of this encounter Care Teams Cemetery Vault Installer Relationship Specialty Start Date End Date Unknown, Notinfile PCP - General 11/23/18 11/26/18 No, Physician PCP - General 11/27/18 04/25/19 Dane Tavarez MD PCP - General Family Medicine 04/26/19 05/23/19 Ro Luna PA [address] [place] [address] PCP - General Family Medicine 05/24/19 12/09/19 Ro Luna PA [address] [place] [address] PCP - General 11/10/18 11/22/18 Dane Jane PA [address] [place] [address] PCP - General Family Practice 12/10/19 Roge Izaguirre MD [address] [place], [place] [address] Consulting Physician Family Medicine 05/24/19 Emilio Mckeon MD [facility] [facility] [address] [place] [address] Referring Physician Internal Medicine 06/08/19 Klaudia Cho DO [address] [place] [address] Referring Physician Urology 06/08/19 documented as of this encounter
--- OUTSIDE RECORDS SUMMARY | 2024-12-31 08:39 | XMS_ITS | Encounter Summary ---
Author Organization [facility] Facility Care Team Providers Care Correctional Substance Abuse Counselor Name Role Phone Unknown, Notinfile Primary Care Provider Unavail able No, Physician Primary Care Provider Dane Tavarez MD Primary Care Provider [phone] Ro Luna Primary Care Provider [phone] Roge Izaguirre MD Unavailable + [phone] Emilio Mckeon MD Unavailable + [phone] Klaudia Cho DO Unavailable [phone] Ro Luna Primary Care Provider [phone] Dane Jane Primary Care Provider [phone] Encounter Details Date Type Department Care Team (Latest Contact Info) Description 12/11/2017 Orders Only [facility] CLINCONV ProviderBraydon MD [address] [place] [address] Social History Tobacco Use Types Packs/Day Years Used Date Smoking Tobacco: Never Assessed Sex and Gender Information Value Date Recorded Sex Assigned at Not on file Legal Sex Male 7:33 PM DROP MACHINE OPERATOR Gender Identity Not on file [...] COVID: Suspected 04/05/2023 04/05/2023 04/05/2023 12:57 PM DROP MACHINE OPERATOR documented as of this encounter Care Teams Correctional Substance Abuse Counselor Relationship Specialty Start Date End Date Unknown, Notinfile PCP - General 11/23/18 11/26/18 No, Physician PCP - General 11/27/18 04/25/19 Dane Tavarez MD PCP - General Family Medicine 04/26/19 05/23/19 Ro Luna PA [address] [place] [address] PCP - General Family Medicine 05/24/19 12/09/19 Ro Luna PA [address] [place] [address] PCP - General 11/10/18 11/22/18 Dane Jane PA [address] [place] [address] PCP - General Family Practice 12/10/19 Roge Izaguirre MD [address] [place] [address] Consulting Physician Family Medicine 05/24/19 Emilio Mckeon MD [address] [place] [address] Referring Physician Internal Medicine 06/08/19 Klaudia Cho DO [address] [facility] [address] [address] [place] [address] Referring Physician Urology 06/08/19 documented as of this encounter
--- OUTSIDE RECORDS SUMMARY | 2024-12-31 08:39 | XMS_ITS | Encounter Summary ---
Author Organization [facility] Health Address [address] [place] [address] Care Team Providers Care Repairer Auto Clocks Name Role Phone Anali Mccann APRN-DEAN OF MEN Primary Care Provider + Anali Mccann APRN-DEAN OF MEN Primary Care Provider + Dane Jane Primary Care Provider [phone] Reason for Visit * Reason Onset Date Comments Instructions 03/30/2019 Left VM message for withholding respiratory medications prior to Methacholine Challenge testing - VGall; CPFT; FLAME ANNEALING MACHINE OPERATOR Encounter Details Date Type Department Care Team (Late st Contact Info) Description 03/30/2019 Telephone [facility] [address] [place] [id number] Argelia Oden RCP Instructions (Left VM message for withholding respiratory medications prior to Methacholine Challenge testing - VGall; CPFT; FLAME ANNEALING MACHINE OPERATOR) Social History Tobacco Use Types Packs/Day Years Used Date Smoking Tobacco: Smoker, Current Status Unknown Cigarettes Smokeless Tobacco: Never Comments:1 pack a week Alcohol Use Standard Drinks/Week Comments No 0 (1 standard drink = 0.6 oz pur e alcohol) Sex and Gender Information Value Date Recorded Sex Assigned at Male 04/05/2022 9:34 PM INFANTRY UNIT LEADER Legal Sex Male 11:46 AM CDT Gender Identity Male 04/05/2022 9:34 PM INFANTRY UNIT LEADER Sexual Orientation Straight 04/05/2022 9: 34 PM INFANTRY UNIT LEADER documented as of this encounter Plan of Treatment Not on file documented as of this encounter Visit Diagnoses Not on filedocumented in this encounter Care Teams Repairer Auto Clocks Relationship Specialty Start Date End Date Anali Mccann APRN-CNP PCP - General 01/12/19 12/24/19 Anali Mccann APRN-CNP [address] [place] [address] PCP - General 12/25/19 01/17/20 Dane Jane PA [address] [place] [address] PCP - General 01/18/20 documented as of this encounter
--- OUTSIDE RECORDS SUMMARY | 2024-12-31 08:39 | XMS_ITS | Encounter Summary ---
Author Organization [facility] Health Address [address] [facility] [place] [address] Care Team Providers Care Gas Torch Solderer Name Role Phone Dane Jane Primary Care Provider Reason for Visit * Reason Onset Date Comments Reminder Call 04/04/2024 No answer. Left voicemail. Encounter Details Date Type Department Care Team (Late st Contact Info) Description 04/04/2024 Telephone [facility] - Pulmonology [address] [facility], [place] [address] Rd Quintero MD [address] [place] [address] PULMONARY MED [address] [place] [address] Reminder Call (No answer. Left voicemail.) Social History Tobacco Use Types Packs/Day Years Used Date Smoking Tobacco: Some Days Cigarettes 0.1 25.7 Started: 1999 Smokeless Tobacco: Never Comments:1 pack [...] Sex Assigned at Male 04/05/2022 9:34 PM RESPIRATORY CARE TECHNICIAN Legal Sex Male 11:46 AM CDT Gender Identity Male 04/05/2022 9:34 PM RESPIRATORY CARE TECHNICIAN Sexual Orientation Straight 04/05/2022 9: 34 PM RESPIRATORY CARE TECHNICIAN documented as of this encounter Functional Status * Is person deaf or have serious hearing difficulty? Answer Date of Assessment Author No 05/23/2023 6:08 PM Mikey Cuellar RN * Is person blind or have serious difficulty seeing? Answer Date of Assessment Author No 05/23/2023 6:08 PM RESPIRATORY CARE TECHNICIAN Mikey Juárez RN * Does person have serious difficulty walking/climbing stairs? Answer Date of Assessment Author No 05/23/2023 6:08 PM Mikey Cuellar RN * Does person have difficulty dressing/bathing? Answer Date of Assessment Author No 05/23/2023 6:08 PM Mikey Cuellar RN * Does person have difficulty doing errands alone? Answer Date of Assessment Author No 05/23/2023 6:08 PM Mikey Cuellar RN documented as of this encounter Mental Status * Does person have difficulty concentrating/remembering/making decisions? Answer Entry Date Author No 05/23/2023 6:08 PM Mikey Cuellar RN documented in this encounter Miscellaneous Notes * Telephone Encounter - Corky Campos - 04/04/2024 9:16 AM CST Called patient about appointment but no answer. Left a voicemail. IRATORY CARE TECHNICIAN documented in this encounter Plan of Treatment Not on file documented as of this encounter Visit Diagnoses Not on filedocumented in this encounter Care Teams Gas Torch Solderer Relationship Specialty Start Date End Date Dane Jane PA [address] [place] [address] PCP - General 01/18/20 documented as of this encounter
--- OUTSIDE RECORDS SUMMARY | 2024-12-31 08:40 | XMS_ITS | Clinical Summary ---
Author Organization [facility] Address [address] [place] [address] Care Team Providers Care Delinquency Prevention Officer Name Role Phone Roge Izaguirre MD Unavailable [phone] Emilio Mckeon MD Unavailable [phone] Klaudia Cho DO Unavailable Dane Jane Primary Care Provider [phone] Allergies Active Allergy Reactions Criticality Noted Date [...] 06/08/2019 Assessment & Plan (06/08/2019 10:05 AM SCIENTIFIC WRITER): I explained to patient I would refill the Xanax at 1 mg b.i.d. only until we can get him to see a psychiatrist. Patient needs to not use the medical marijuana while taking the Xanax. Requested records from [facility] Health maintenance examination 06/08/2019 Overview (06/08/2019): PMH: 06/08/2019 Last colonoscopy/cologuard: 03/2019 Last tdap: 11/10/2018 Last Prevnar/pneumovax:2019 Last Shingrix: Last eye exam: Assessment & Plan (06/08/2019 10:06 AM SCIENTIFIC WRITER): PMH: 06/08/2019 Last colonoscopy/cologuard: 03/2019 Last tdap: 11/10/2018 Last Prevnar/pneumovax:2019 Last Shingrix: Last eye exam: Requested record BMI 21.0-21.9, adult 06/08/2019 Assessment & Plan (06/08/2019 10:04 AM SCIENTIFIC WRITER): BMI is okay. Normal range is 18-25 and overweight is 25-30. Continue to work on eating healthy and exercising at least 150 minutes per week. Cystic fibrosis 03/21/2019 Assessment & Plan (06/08/2019 10:04 AM SCIENTIFIC WRITER): Followed by pulmonary Anxiety 04/07/2018 Syncope and collapse 04/07/2018 Hypothyroid 02/10/2018 Assessment & Plan (06/08/2019 10:05 AM SCIENTIFIC WRITER): Patient has been out of meds since March. Refilled meds and patient to check his labs in 6-8 weeks Irritable bowel syndrome wit h both constipation and diarrhea 02/10/2018 Assessment & Plan (06/08/2019 10:05 AM SCIENTIFIC WRITER): Stable continue meds Panlobular emphysema 02/10/2018 Assessment & Plan (06/08/2019 10:05 AM SCIENTIFIC WRITER): Followed by pulmonary Tobacco use 02/10/2018 Assessment & Plan (06/08/2019 10:05 AM SCIENTIFIC WRITER): Quitting smoking is one of the most important things you can do for your health. Contact 8-245-BZDP-NOW or www.smokefree.gov for more information. 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 Not on file Not on file Not on file Obstetrics History Last Filed Vital Signs Vital Sign Reading Time Taken Comments Blood Pressure 116/66 03/21/2024 11:15 AM SCIENTIFIC WRITER Pulse 81 03/21/2024 11:15 AM SCIENTIFIC WRITER Temperature 36.8 C (98.2 F) 04/06/2023 3:08 PM SCIENTIFIC WRITER Respiratory Rate 18 04/06/2023 3:08 PM SCIENTIFIC WRITER Oxygen Saturation 93% 04/06/2023 3:08 PM SCIENTIFIC WRITER Inhaled Oxygen Concentration - - Weight 86.5 kg (190 lb 11.2 oz) 024 11:15 AM SCIENTIFIC WRITER Height 180.3 cm (5' 11) 03/21/2024 11: 15 AM SCIENTIFIC WRITER Body Mass Index 26.6 03/21/2024 11:15 AM SCIENTIFIC WRITER Plan of Treatment Health Maintenance Due Date Last Done Comments Hepatitis C Screening 1983 Prostate Cancer Screening-PSA 1983 Varicella Vaccines (1 of 2 - 13+ 2-dose series) 1996 Hepatitis B Screening 2001 HPV Vaccines (1 - 3-dose SCDM series) 2010 Pneumococcal vaccine <65 (2 of 2 - PPSV23, PCV20, or PCV21) 12/11/2017 10/16/2017 Depression Screening 06/08/2020 06/08/2019, 06/08/19 20 Regular Well Visit/Exam 18-64 06/08/2020 06/08/2019 Covid-19 Vaccine (3 - 2024- season) 2024, 09/05/2020 Influenza Vaccine (#1) 2024 , 01/22/2019, 02/10/2018 DTaP/Tdap/Td Vaccine (2 - Td or Tdap) 11/10/2028 Insurance [place] [facility] Advance Directives For more information, please contact: [phone] * Full Code (Latest Code Status on File) Date Activated Date Inactivated Comments 04/05/2023 6:42 PM 04/06/2023 8:56 PM Care Teams Delinquency Prevention Officer Relationship Specialty Start Date End Date Dane Jane PA [address] [place] [address] PCP - General Family Practice 12/10/19 Roge Izaguirre MD [address] [place] [address] Consulting Physician Family Medicine 05/24/19 Emilio Mckeon MD [address] [facility] [address] [place] [address] Referring Physician Internal Medicine 06/08/19 Klaudia Cho DO [address] [place] [address] Referring Physician Urology 06/08/19
--- OUTSIDE RECORDS SUMMARY | 2024-12-31 08:40 | XMS_ITS | Encounter Summary ---
Author Organization [facility] Health Address [address] [place] [address] Care Team Providers Care Asbestos Shingle Roofer Name Role Phone Dane Jane Primary Care Provider Reason for Visit * Reason Onset Date Comments Order 02/22/2020 Encounter Details Date Type Department Care Team (Late st Contact Info) Description 02/22/2020 Telephone [facility] [address] [place] [address] Ru Livingston MD [facility] [phone] Order Social History Tobacco Use Types Packs/Day Years Used Date Smoking Tobacco: Some Days Cigarettes 0.1 25.7 Started: 1999 Smokeless Tobacco: Never Comments:2-3 cigarettes a da y at most Alcohol Use Standard Drinks/Week Comments No 0 (1 standard drink = 0.6 oz pur e alcohol) Sex and Gender Information Value Date Recorded Sex Assigned at Male 04/05/2022 9:34 PM NYLON WINDER Legal Sex Male 11:46 AM CDT Gender Identity Male 04/05/2022 9:34 PM NYLON WINDER Sexual Orientation Straight 04/05/2022 9: 34 PM NYLON WINDER documented as of this encounter Functional Status * Is person deaf or have serious hearing difficulty? Answer Date of Assessment Author No 05/06/2019 11:26 PM David Crisostomo RN * Is person blind or have serious difficulty seeing? Answer Date of Assessment Author No 05/06/2019 11:26 PM David Crisostomo RN * Does person have serious difficulty walking/climbing stairs? Answer Date of Assessment Author Yes 05/06/2019 11:26 PM David Crisostomo RN * Does person have difficulty dressing/bathing? Answer Date of Assessment Author No 05/06/2019 11:26 PM David Crisostomo RN * Does person have difficulty doing errands alone? Answer Date of Assessment Author Yes 05/06/2019 11:26 PM David Crisostomo RN documented as of this encounter Mental Status * Does person have difficulty concentrating/remembering/making decisions? Answer Entry Date Author No 05/06/2019 11:26 PM David Crisostomo RN documented in this encounter Miscellaneous Notes * Telephone Encounter - Ru Livingston MD - 02/22/2020 2:44 PM NYLON WINDER PATIENT COMMUNICATION NOTE Dear Ms. Sullivan: Please [...] you with. Take care, Ru Livingston MD, [facility], [facility], [facility] Fire Control System Installer, [facility] Professor of Internal Medicine Adjunct Auditor Medical Claims of Neurology Division of Pulmonary, Critical Care, and Sleep Medicine [facility] ===View-only below this line=== ----- Message ----- From: Gwendolyn Sullivan Sent: 02/22/2020 2:16 PM NYLON WINDER To: Ru Livingston MD N WINDER * Telephone Encounter - Gwendolyn Sullivan - 02/22/2020 2:15 PM CST Patient is asking if he can preform an HSt instead of a PSG? N WINDER documented in this encounter Plan of Treatment Not on file documented as of this encounter Visit Diagnoses Not on filedocumented in this encounter Care Teams Asbestos Shingle Roofer Relationship Specialty Start Date End Date Dane Jane PA [address] [place] [address] PCP - General 01/18/20 documented as of this encounter
--- OUTSIDE RECORDS SUMMARY | 2024-12-31 08:40 | XMS_ITS | Clinical Summary ---
Author Organization [facility] Address [address] [place] [address] Phone Care Team Providers Care Financial Consultant Name Role Phone Unavailable Primary Care Provider Unavailabl e Social History Tobacco Use Types Packs/Day Years Used Date Smoking Tobacco: Never Assessed Sex and Gender Information Value Date Recorded Sex Assigned at Not on file Legal Sex Male 10:00 AM CANDY STARCH MOLD PRINTER Gender Identity Not on file Sexual Orientation Not on file Plan of Treatment Health Maintenance Due Date Last Done Comments DTAP/TDAP/TD VACCINES (1 - Tdap) 2002 HEPATITIS B VACCINES (1 of 3 - 19+ 3-dose series) 04/18 HPV VACCINES (1 - 3-dose SCDM series) 2010 INFLUENZA VACCINE (#1) 2024 01/22/2019 Insurance [place]ICAID [place]
--- OUTSIDE RECORDS SUMMARY | 2024-12-31 08:40 | XMS_ITS | Encounter Summary ---
Author Organization [facility] Address [address] [place] [address] Care Team Providers Care Mixer Blender Name Role Phone Dane Jane Primary Care Provider [phone] Reason for Visit * Reason Onset Date Comments Instructions 04/29/2020 Spoke with patiankush nt about with holding Spiriva x 7 days prior to Methacholine Challenge testing; reviewed Symbicort with hold x 2 days prior to test and Albuterol MDI withheld x 6 hours - VGall BILLET SHEARER Encounter Details Date Type Department Care Team (Late st Contact Info) Description 04/29/2020 Telephone [facility] PFT [address] [place] [phone] Emilio Mckeon MD [address] [facility] [address] [facility] [address] Instructions (Spoke with patient about with holding Spiriva x 7 days prior to Methacholine Challenge testing; reviewed Symbicort with hold x 2 days prior to test and Albuterol MDI withheld x 6 hours - VGall BILLET SHEARER) Social History Tobacco Use Types Packs/Day Years Used Date Smoking Tobacco: Some Days Cigarettes 0.1 25.7 Started: 1999 Smokeless Tobacco: Never Comments:2-3 cigarettes a da y at most Alcohol Use Standard Drinks/Week Comments No 0 (1 standard drink = 0.6 oz pur e alcohol) Sex and Gender Information Value Date Recorded Sex Assigned at Male 04/05/2022 9:34 PM ROUTE DELIVERY CLERK Legal Sex Male 11:46 AM CDT Gender Identity Male 04/05/2022 9:34 PM ROUTE DELIVERY CLERK Sexual Orientation Straight 04/05/2022 9: 34 PM ROUTE DELIVERY CLERK COVID-19 Exposure Response Date Recorded In the last month, have you been in contact with someone who was confirmed or suspected to have Coronavirus / COVID-19? Unable to assess 04/29/2020 2:21 PM ROUTE DELIVERY CLERK documented as of this encounter Functional Status * Is person deaf or have serious hearing difficulty? Answer Date of Assessment Author No 03/19/2020 2:20 PM ROUTE DELIVERY CLERK Anaid Goncalves RN * Is person blind or have [...] on filedocumented in this encounter Care Teams Mixer Blender Relationship Specialty Start Date End Date Dane Jane PA [address] [place] [address] PCP - General 01/18/20 documented as of this encounter
--- OUTSIDE RECORDS SUMMARY | 2024-12-31 08:40 | XMS_ITS | Clinical Summary ---
Author Organization [facility] Address [address] [place] [address] Phone Care Team Providers Care Food Writer Name Role Phone Dane Jane Primary Care Provider [phone] Allergies Active Allergy Reactions Criticality Noted Date [...] on file Legal Sex Male 7:58 AM CAFETERIA CASHIER Gender Identity Not on file Sexual Orientation Not on file Last Filed Vital Signs Vital Sign Reading Time Taken Comments Blood Pressure - - Pulse - - Temperature - - Respiratory Rate - - Oxygen Saturation - - Inhaled Oxygen Concentration - - Weight - - Height 180.3 cm (5' 11) 12/19/2018 11:32 AM CDT Body Mass Index - - Plan of Treatment Health Maintenance Due Date Last Done Comments Hepatitis C Virus (HCV) Screening 1983 Hepatitis B Immunization (1 of 3 - 19+ 3-dose series) 2002 Human Papillomavirus (HPV) Immunization (1 - 3-dose SCDM series) 2010 Influenza Immunization (#1) 12/17/202401/16, 01/22/2019, 02/10/2018 SARS-COV-2 Immunization (3 - 2024- season) 2024 09/29/2020, 09/05/2020 Respiratory Syncytial Virus (RSV) Immunization [...] Insurance MEDICAID [employer] Care Teams Food Writer Relationship Specialty Start Date End Date Dane Jane PAC [address] [place] [address] PCP - General Physician Bell Person 05/01/21
[2024-12-31 08:41] LABS: Add Urine Microscopic? NO; Appearance Urine Clear (Clear); Glucose Urine UA Negative (Negative); Leukocyte Esterase Ur Negative LEU/UL (Negative); Nitrate Urine Negative (Negative); Specific Grav Ur 1.019 (1.001-1.035)
--- NOTE | 2024-12-31 09:16 | ED.GENADULT ---
HPI - General Adult General Chief complaint: Urogenital-Male Stated complaint: left flank pain, pain with urination x 2 weeks Time Seen by Provider: 12/31/24 08:51 History of Present Illness HPI narrative: Freddie Arellano is a 39-year-old male who presents today with complaints of having left flank pain has been moving around his lower abdomen this started about 4 days ago. He states that the pain is and on. He has history surgery to the left ureter, hydronephrosis on the loft. He denies any fevers, states that he did noticed some very little blood in his urine twice over the past 4 days. He states the pain comes and goes it is not constant he states that he feels the pain whenever he urinates. But denies having any dysuria, denies penile discharge. Denies nausea vomiting reports he is having normal bowel movements. Related Data Home Medications ?Medication ?Instructions ?Recorded ?Confirmed ?Last Taken ?Type alprazolam 2 mg tablet 2 mg PO BID 07/09/24 Unknown History levothyroxine 137 mcg capsule 137 mcg PO DAILY 07/09/24 Unknown History naproxen 500 mg tablet 500 mg PO TID 07/09/24 Unknown History topiramate 50 mg sprinkle capsule 50 mg PO QHS 07/09/24 Unknown History Allergies Allergy/AdvReac Type Severity Reaction Status Date / Time Penicillins Allergy Unknown Unknown Verified 12/31/24 08:20 SULFA Allergy Intermediate Unknown Uncoded 07/21/24 01:05 NKFA Allergy Unknown Unknown Uncoded 07/09/24 09:50 Review of Systems Review of Systems: All systems reviewed & are unremarkable except as noted in HPI and below PMFSH Past Medical History Medical History Penile fracture History of thyroid cancer Arrhythmia History of IBS Thyroid disorder Chronic headaches Anxiety Asthma Surgical History Surgical History History of urologic surgery multiple; Urologist Dr Klaudia Cho Family History Family History Mother Thyroid cancer Diabetes mellitus Heart disease Thyroid disorder Grandparent Lung cancer Hypertension Diabetes mellitus Social History Social History Social History: Smoking packs per day: 0.25 Smoking cigarettes per day: 5.0 Smoking status: Unknown if ever smoked Tobacco type: cigarettes Alcohol intake: never Do You Feel Safe in your Home?: Yes Lack of Transportation: No Lack of Food: Never True Current Housing: I Have Housing Concerned About Future Housing: No Difficulty Paying Gas/Electric Bills: No Difficulty Paying for Meds: No Currently Unemployed: No Education: Bachelor's Degree Additional occupation/education comments: Former Exam Narrative: GENERAL: Well-appearing, well-nourished, and in no acute distress. HEAD: Normocephalic, atraumatic. EYES: PERRLA and EOMI. ENT: Nares clear, no rhinorrhea or epistaxis. Mucous membranes moist. Oropharynx without tonsillar hypertrophy exudate or other lesions. NECK: Supple. No adenopathy or masses. No carotid bruits or JVD CHEST: Clear to auscultation. No respiratory distress. No wheezes rales or rhonchi HEART: Regular rate and rhythm. No murmur heard. Normal peripheral pulses. ABDOMEN: Soft, nontender, nondistended, normal active bowel sounds. EXTREMITIES: Normal range of motion. No edema. SKIN: Warm, dry, no rash. NEURO: No focal deficits. Alert and oriented x3. PSYCH: Normal mood and affect. Course Vital Signs Vital signs: Vital Signs Temperature 36.8 C 12/31/24 08:16 Pulse Rate 103 H 12/31/24 08:16 Respiratory Rate 18 12/31/24 08:16 Blood Pressure 123/74 12/31/24 08:16 Pulse Oximetry 96 12/31/24 08:16 Oxygen Delivery Room Air 12/31/24 08:16 Temperature 36.8 C 12/31/24 08:16 Pulse Rate 103 H 12/31/24 08:16 Respiratory Rate 18 12/31/24 08:16 Blood Pressure 123/74 12/31/24 08:16 Pulse Oximetry 96 12/31/24 08:16 Oxygen Delivery Room Air 12/31/24 08:16 Medical Decision Making [facility] Narrative Medical decision making narrative: Patient presented to the ED with complaint of left flank pain that wraps around to the left abdomen off and on for 4 days.Vitals were within acceptable limits. Physical exam did not reveal significant tenderness Based on the patient's history and physical exam, my differential includes but is not limited to gastritis, gastroenteritis, cholecystitis, pancreatitis, appendicitis Labs were unremarkable Decision was made to obtain a CT-abdomen to evaluate for acute abdominal process. CT-abdomen is unremarkable for acute intra-abdominal process, no signs of hydronephrosis, cholecystitis, appendicitis. Based on his history and exam is possible that he likely passed a kidney stone maybe a couple days ago. Discussed this with the patient also discussed his signs of maybe mild dehydration encouraged him to continue to push oral hydration. With him having no symptoms at this time and feeling better he is comfortable with being discharged home with follow-up with his primary care doctor On reevaluation, the patient states that they are feeling much better. There were no witnessed episodes of vomiting in the emergency department. They are not complaining of any new abdominal pain. Repeat examination did not show any significant guarding or rebound. No new tenderness. At this time I do not feel there is any further emergent treatment to be provided. The patient was given strict return precautions, if they are to develop any worsening abdominal pain, vomiting, or blood in the vomit they are to return to the emergency department immediately. Patient verbally acknowledges understanding these directions. DISPOSITION: Home Medical Records Medical records reviewed: Yes I reviewed the external patient's medical records. Vital Signs Vital Signs: Vital Signs Temperature 36.8 C 12/31/24 08:16 Pulse Rate 103 H 12/31/24 08:16 Respiratory Rate 18 12/31/24 08:16 Blood Pressure 123/74 12/31/24 08:16 Pulse Oximetry 96 12/31/24 08:16 Oxygen Delivery Room Air 12/31/24 08:16 Temperature 36.8 C 12/31/24 08:16 Pulse Rate 103 H 12/31/24 08:16 Respiratory Rate 18 12/31/24 08:16 Blood Pressure 123/74 12/31/24 08:16 Pulse Oximetry 96 12/31/24 08:16 Oxygen Delivery Room Air 12/31/24 08:16 Vitals reviewed by me Lab Data Lab results reviewed: Yes I reviewed the patient's lab results. 12/31/24 08:30 12/31/24 09:08 Labs: Lab Results 12/31/24 12/31/24 Range/Units 08:30 09:08 WBC 7.3 (4.5-10.0) K/mm3 RBC 4.87 (4.6-6.20) M/mm3 Hgb 15.1 (14.0-18.0) g/dL Hct 43.8 (42.0-52.0) % MCV 89.9 (80-100) fl MCH 31.0 (26-34) pg MCHC 34.5 (32-36) g/dl RDW 13.6 (11.5-14.5) % Plt Count 288 (150-375) k/mm3 MPV 10.3 (7.4-10.4) fl Immature Gran % (Auto) 0.7 H (0-0.5) % Neut % (Auto) 57.0 (45.5-73.1) % Lymph % (Auto) 29.6 (18.3-44.2) % Lincoln % (Auto) 6.5 (2.6-8.5) % Eos % (Auto) 5.4 H (0-4.4) % Baso % (Auto) 0.8 (0.2-1.2) % Lymph # (Auto) 2.15 (0.9-3.2) K/mm3 Lincoln # (Auto) 0.5 (0.1-0.6) K/mm3 Eos # (Auto) 0.4 H (0-0.3) K/mm3 Baso # (Auto) 0.1 (0.0-0.1) K/mm3 Abs Immat Gran (auto) 0.05 H (0.00-0.031) K/mm3 Absolute Neuts (auto) 4.2 (1.3-6.7) K/mm3 Absolute Nucleated RBC 0.000 (0.0-0.012) K/mm3 Nucleated RBC % 0.0 (0.0-0.2) % Sodium 138 (137-145) mmol/L Potassium 3.9 (3.4-5.0) mmol/L Chloride 111 H (98-107) mmol/L Carbon Dioxide 21 L (22-30) mmol/L Anion Gap 6 (4-12) mmol/L BUN 10 (9-20) mg/dL Creatinine 0.99 (0.7-1.3) mg/dL Estim Creat Clear Calc 92 ml/min Estimated GFR > 60 (59 - ) Glucose 129 H (65-110) mg/dL Calcium 8.7 (8.4-10.2) mg/dL Total Bilirubin 0.5 (0.2-1.3) mg/dL AST 36 (17-59) U/L ALT 28 (6-50) U/L Alkaline Phosphatase 69 (38-126) U/L Total Protein 7.3 (6.3-8.2) g/dL Albumin 3.8 (3.5-5.1) g/dL Urine Color Yellow (Yellow) Urine Appearance Clear (Clear) Urine pH 6.0 (5.0-9.0) Ur Specific Elizabeth 1.019 (1.001-1.035) Urine Protein Negative (Negative) mg/dL Urine Glucose (UA) Negative (Negative) mg/dL Urine Ketones Trace H (Negative) mg/dL Ur Blood (Man) Negative (Negative) Urine Nitrate Negative (Negative) Urine Bilirubin Negative (Negative) Urine Urobilinogen 1.0 (<2.0) mg/dL Leukocyte Esterase Rfl Negative (Negative) JAMES/UL Imaging Data Radiologist's impression: Impressions Abdomen/Pelvis CT 12/31/24 09:42 IMPRESSION: No evidence of acute pathology in the abdomen and pelvis. Discharge Plan Discharge Clinical Impression: Abdominal pain of unknown etiology Patient Disposition: Home Condition: Stable Instructions: Antibiotic Form Additional Instructions: Continue to push hydration make sure you are drinking plenty of fluids. Monitor your symptoms as we did not find any abnormality under CT scan today and your kidney function was within normal limits if you do develop any new or worsening symptoms as always he may return to the emergency department otherwise please follow-up your primary care doctor in 1 week. Patient Language: Occitan Prescriptions: No Action levothyroxine 137 mcg capsule 137 mcg PO DAILY naproxen 500 mg tablet 500 mg PO TID alprazolam 2 mg tablet 2 mg PO BID topiramate 50 mg capsule, sprinkle 50 mg PO QHS Follow-up/Referrals: Buck,AMANDA Russo [Primary Care Provider] - 1 Week Time of Disposition: 10:13
[2024-12-31 09:25] LABS: Alanine Aminotransferase 28 U/L (6-50); Albumin Level 3.8 g/dL (3.5-5.1); Alkaline Phosphatase 69 U/L (38-126); Anion Gap 6 mmol/L (4-12); Aspartate Amino Transferase 36 U/L (17-59); Bilirubin,Total 0.5 mg/dL (0.2-1.3); Blood Urea Nitrogen 10 mg/dL (9-20); Calcium 8.7 mg/dL (8.4-10.2); Carbon Dioxide 21 mmol/L (22-30); Chloride 111 mmol/L (98-107); Estimated CRCL calculation 92 ml/min; Estimated Glomerular Filt Rate > 60; Glucose 129 mg/dL (65-110); Potassium 3.9 mmol/L (3.4-5.0); Sodium 138 mmol/L (137-145); Total Protein 7.3 g/dL (6.3-8.2)
--- OUTSIDE RECORDS SUMMARY | 2024-12-31 09:49 | XMS_ITS | Clinical Summary ---
Author Organization [facility] Address [address] [place] [address] Care Team Providers Care Teletypewriter Installer Name Role Phone Dane Jane Primary Care Provider [phone] Source Comments [facility],non-owned Affiliates and Associated Physician Practices is amultiple site organization consisting of ambulatory clinics and hospital sitesin [place], [place] and [place]. This disclosure is being madepursuant to the Care Everywhere program and may not contain all information available regarding this patient. Last updated 18.[facility] Allergies Active Allergy Reactions Criticality Noted Date [...] 04/02/2019 Immunizations Immunization Administration Dates Next Due ezzai - how to arab[place] primary monoval ent 12+ yr 0.3mL Purple [...] Sex Assigned at Male 04/05/2022 9:34 PM GEOPHYSICAL COMPUTER Legal Sex Male 11:46 AM CDT Gender Identity Male 04/05/2022 9:34 PM GEOPHYSICAL COMPUTER Sexual Orientation Straight 04/05/2022 9: 34 PM GEOPHYSICAL COMPUTER Last Filed Vital Signs Vital Sign Reading Time Taken Comments Blood Pressure 118/76 07/19/2024 3:49 PM CDT Pulse 68 07/19/2024 3:49 PM CDT Temperature 36.8 C (98.3 F) 07/19/2024 3:49 PM CDT Respiratory Rate 18 07/19/2024 3:49 PM CDT Oxygen Saturation 96% 07/19/2024 3:49 PM CDT Inhaled Oxygen Concentration 21% 05/23/2023 5 :30 PM GEOPHYSICAL COMPUTER Weight 82.1 kg (181 lb) 07/19/2024 3:49 [...] this topic Medical Devices Implanted Type Area Bottle House Cleaners Supervisor Device Identifier Shelf Expiration Date Model / Serial / Lot Stent Uret 6fr 28cm Pgtl Crv Tpr Tip Implanted:Qty: 1 on 05/05/2019 by Klaudia Cho DO at [facility] Left: Ureter RFMarqmed 03/04/2022 [id number] / / [id number] Procedures Procedure Name Priority Date/Time Associated Diagnosis Comments HEMOGLOBIN A1C Routine 01/31/2024 2:46 PM CDT Paresthesia Numbness in feet Numbness in both hands Migraine without aura and without status migrainosus, not intractable Daily headache from Last 3 Months or Most Recently Relevant to Health Maintenance Results * HEMOGLOBIN A1C (01/31/2024 2:46 PM CDT) Hemoglobin A1c 5.4 <=5.6 % 02/01/2024 9:30 AM CDT [facility] Estimated Average Glucose 108 mg/dL 02/01/2024 9:30 AM CDT [facility] Comment: HbA1c Interpretation: Normal : < 5.7% Pre-diabetes: 5.7-6.4% Diabetes: Equal to or greater than 6.5% Test results diagnostic of diabetes should be repeated for confirmation. Treatment target values recommended by ADA and other clinical organizations should be used to evaluate metabolic control in patients. Reference: [place] [employer] Association, Standards of Care in Diabetes [...] 01/31/2024 3:53 PM CDT us Delmy Renee FORESTRY INSTRUCTOR-BUSINESS ANALYSIS SPECIALIST LAB - CHEMISTRY ORDERA BLES Final Result [facility] [address] [place] [id number], [facility] [phone] from Last 3 Months or Most Recently Relevant to Health Maintenance Insurance [facility] Advance Directives * Full Code (Latest Code Status on File) Date Activated Date Inactivated Comments 05/03/2019 4:23 PM 05/07/2019 4:38 PM Care Teams Teletypewriter Installer Relationship Specialty Start Date End Date Dane Jane PA [address] [place] [address] PCP - General 01/18/20
--- OUTSIDE RECORDS SUMMARY | 2024-12-31 09:49 | XMS_ITS | Encounter Summary ---
Author Organization [facility] Address [address] [place] [address] Care Team Providers Care Ocular Care Aide Name Role Phone Dane Jane Primary Care Provider [phone] Reason for Visit * Reason Comments Refill Request Encounter Details Date Type Department Care Team (Late st Contact Info) Description 06/15/2021 Refill [facility] [address] [place] [id number] Emilio Mckeon MD [address] [facility] [address] DIV OF PULMONARY/[place] [address] Refill Request Social History Tobacco Use Types Packs/Day Years Used Date Smoking Tobacco: Former Cigarettes 0.1 21 2 000 - 04/18/2020 Smokeless Tobacco: Never Comments:2-3 cigarettes a da y at most Alcohol Use Standard Drinks/Week Comments No 0 (1 standard drink = 0.6 oz pur e alcohol) Sex and Gender Information Value Date Recorded Sex Assigned at Male 04/05/2022 9:34 PM OIL PIPE INSPECTOR HELPER Legal Sex Male 11:46 AM CDT Gender Identity Male 04/05/2022 9:34 PM OIL PIPE INSPECTOR HELPER Sexual Orientation Straight 04/05/2022 9: 34 PM OIL PIPE INSPECTOR HELPER documented as of this encounter Functional Status * Is person deaf or have serious hearing difficulty? Answer Date of Assessment Author No 03/19/2020 2:20 PM Anaid Molina RN * Is person blind or have serious difficulty seeing? Answer Date of Assessment Author No 03/19/2020 2:20 PM nAaid Molina RN * Does person have serious [...] (HCC) documented in this encounter Care Teams Ocular Care Aide Relationship Specialty Start Date End Date Dane Jane PA [address] [place] [address] PCP - General 01/18/20 documented as of this encounter
--- OUTSIDE RECORDS SUMMARY | 2024-12-31 09:50 | XMS_ITS | Clinical Summary ---
Author Organization [facility] Address [address] [place] [address] Phone Care Team Providers Care Medical Assistant Float Name Role Phone Dane Jane Primary Care Provider [phone] Allergies Active Allergy Reactions Criticality Noted Date [...] on file Legal Sex Male 7:58 AM CONSTRUCTION GRIP Gender Identity Not on file Sexual Orientation [...] Insurance MEDICAID [employer] Care Teams Medical Assistant Float Relationship Specialty Start Date End Date Dane Jane PAC [address] [place] [address] PCP - General Physician Slate Trimmer 05/01/21
--- OUTSIDE RECORDS SUMMARY | 2024-12-31 09:50 | XMS_ITS | Clinical Summary ---
Author Organization [facility] Address [address] [place] [address] Care Team Providers Care Specification Manager Name Role Phone Roge Izaguirre MD Unavailable [phone] Emilio Mckeon MD Unavailable [phone] Kluadia Cho DO Unavailable [phone] Dane Jane Primary Care Provider [phone] Allergies Active Allergy Reactions Criticality Noted Date [...] 06/08/2019 Assessment & Plan (06/08/2019 10:05 AM TIN RECOVERY WORKER): I explained to patient I would refill the Xanax at 1 mg b.i.d. only until we can get him to see a psychiatrist. Patient needs to not use the medical marijuana while taking the Xanax. Requested records from [facility] Health maintenance examination 06/08/2019 Overview (06/08/2019): PMH: 06/08/2019 Last colonoscopy/cologuard: 03/2019 Last tdap: 11/10/2018 Last Prevnar/pneumovax:2019 Last Shingrix: Last eye exam: Assessment & Plan (06/08/2019 10:06 AM TIN RECOVERY WORKER): PMH: 06/08/2019 Last colonoscopy/cologuard: 03/2019 Last tdap: 11/10/2018 Last Prevnar/pneumovax:2019 Last Shingrix: Last eye exam: Requested record BMI 21.0-21.9, adult 06/08/2019 Assessment & Plan (06/08/2019 10:04 AM TIN RECOVERY WORKER): BMI is okay. Normal range is 18-25 and overweight is 25-30. Continue to work on eating healthy and exercising at least 150 minutes per week. Cystic fibrosis 03/21/2019 Assessment & Plan (06/08/2019 10:04 AM TIN RECOVERY WORKER): Followed by pulmonary Anxiety 04/07/2018 Syncope and collapse 04/07/2018 Hypothyroid 02/10/2018 Assessment & Plan (06/08/2019 10:05 AM TIN RECOVERY WORKER): Patient has been out of meds since March. Refilled meds and patient to check his labs in 6-8 weeks Irritable bowel syndrome wit h both constipation and diarrhea 02/10/2018 Assessment & Plan (06/08/2019 10:05 AM TIN RECOVERY WORKER): Stable continue meds Panlobular emphysema 02/10/2018 Assessment & Plan (06/08/2019 10:05 AM TIN RECOVERY WORKER): Followed by pulmonary Tobacco use 02/10/2018 Assessment & Plan (06/08/2019 10:05 AM TIN RECOVERY WORKER): Quitting smoking is one of the most important things you can do for your health. Contact 7-174-PXKZ-NOW or www.smokefree.gov for more information. 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 Not on file Not on file Obstetrics History Last Filed Vital Signs Vital Sign Reading Time Taken Comments Blood Pressure 116/66 03/21/2024 11:15 AM TIN RECOVERY WORKER Pulse 81 03/21/2024 11:15 AM TIN RECOVERY WORKER Temperature 36.8 C (98.2 F) 04/06/2023 3:08 PM TIN RECOVERY WORKER Respiratory Rate 18 04/06/2023 3:08 PM TIN RECOVERY WORKER Oxygen Saturation 93% 04/06/2023 3:08 PM TIN RECOVERY WORKER Inhaled Oxygen Concentration - - Weight 86.5 kg (190 lb 11.2 oz) 024 11:15 AM TIN RECOVERY WORKER Height 180.3 cm (5' 11) 03/21/2024 11: 15 AM TIN RECOVERY WORKER Body Mass Index 26.6 03/21/2024 11:15 AM TIN RECOVERY WORKER Plan of Treatment Health Maintenance Due Date [...] - Td or Tdap) 11/10/2028 Insurance [facility] Advance Directives For more information, please contact: [phone] * Full Code (Latest Code Status on File) Date Activated Date Inactivated Comments 04/05/2023 6:42 PM 04/06/2023 8:56 PM Care Teams Specification Manager Relationship Specialty Start Date End Date Dane Jane PA [address] [place] [address] PCP - General Family Practice 12/10/19 Roge Izaguirre MD [address] [place] [id number] Consulting Physician Family Medicine 05/24/19 Emilio Mckeon MD [address] [facility] [address] [place] [address] Referring Physician Internal Medicine 06/08/19 Klaudia Cho DO [address] [place] [address] Referring Physician Urology 06/08/19
--- OUTSIDE RECORDS SUMMARY | 2024-12-31 09:50 | XMS_ITS | Clinical Summary ---
Author Organization [facility] Address [address] [place] [address] Phone Care Team Providers Care Front End Developer Name Role Phone Unavailable Primary Care Provider Unavailabl e Social History Tobacco Use Types Packs/Day Years Used Date Smoking Tobacco: Never Assessed Sex and Gender Information Value Date Recorded Sex Assigned at Not on file Legal Sex Male 10:00 AM ARMOR RECONNAISSANCE VEHICLE CREWMAN Gender Identity Not on file Sexual Orientation Not on file Plan of Treatment Health Maintenance Due Date Last Done Comments DTAP/TDAP/TD VACCINES (1 - Tdap) 2002 HEPATITIS B VACCINES (1 of 3 - 19+ 3-dose series) 04/18 HPV VACCINES (1 - 3-dose SCDM series) 2010 INFLUENZA VACCINE (#1) 2024 01/22/2019 Insurance MEDICAID [place]
--- OUTSIDE RECORDS SUMMARY | 2024-12-31 09:50 | XMS_ITS | Encounter Summary ---
Author Organization [facility] Address [address] [facility] [place] [address] Care Team Providers Care Information Writer Name Role Phone Anali Mccann APRN-CLOCKMAKER Primary Care Provider + Anali Mccann APRN-CLOCKMAKER Primary Care Provider + Dane Jane Primary Care Provider [phone] Reason for Visit * Reason Onset Date Comments Instructions 03/30/2019 Left VM message for withholding respiratory medications prior to Methacholine Challenge testing - VGall; CPFT; PORTABLE CANTEEN OPERATOR Encounter Details Date Type Department Care Team (Late st Contact Info) Description 03/30/2019 Telephone [facility] [address] [place] [id number] Argelia Oden RCP Instructions (Left VM message for withholding respiratory medications prior to Methacholine Challenge testing - VGall; CPFT; PORTABLE CANTEEN OPERATOR) Social History Tobacco Use Types Packs/Day Years Used Date Smoking Tobacco: Smoker, Current Status Unknown Cigarettes Smokeless Tobacco: Never Comments:1 pack a week Alcohol Use Standard Drinks/Week Comments No 0 (1 standard drink = 0.6 oz pur e alcohol) Sex and Gender Information Value Date Recorded Sex Assigned at Male 04/05/2022 9:34 PM INSPECTOR GOLF BALL Legal Sex Male 11:46 AM CDT Gender Identity Male 04/05/2022 9:34 PM INSPECTOR GOLF BALL Sexual Orientation Straight 04/05/2022 9: 34 PM INSPECTOR GOLF BALL documented as of this encounter Plan of Treatment Not on file documented as of this encounter Visit Diagnoses Not on filedocumented in this encounter Care Teams Information Writer Relationship Specialty Start Date End Date Anali Mccann APRN-CNP PCP - General 01/12/19 12/24/19 Anali Mccann APRN-CNP [address] [place] [address] PCP - General 12/25/19 01/17/20 Dane Jane PA [address] [place] [address] PCP - General 01/18/20 documented as of this encounter
--- OUTSIDE RECORDS SUMMARY | 2024-12-31 09:50 | XMS_ITS | Encounter Summary ---
Author Organization [facility] Facility Care Team Providers Care Terra Cotta Roofer Helper Name Role Phone Unknown, Notinfile Primary Care Provider Unavail able No, Physician Primary Care Provider Dane Tavarez MD Primary Care Provider [phone] Ro Luna Primary Care Provider [phone] Roge Izaguirre MD Unavailable + [phone] Emilio Mckeon MD Unavailable + [phone] Klaudia Cho DO Unavailable [phone] Ro Luna Primary Care Provider [phone] Dane Jane Primary Care Provider [phone] Encounter Details Date Type Department Care Team (Latest Contact Info) Description 02/21/2018 Orders Only [facility] CLINCONV ProviderBraydon MD [address] [place] [address] Social History Tobacco Use Types Packs/Day Years Used Date Smoking Tobacco: Never Assessed Sex and Gender Information Value Date Recorded Sex Assigned at Not on file Legal Sex Male 7:33 PM TELECOM ANALYST Gender Identity Not on file Sexual Orientation Not on file documented as of this encounter Plan of Treatment Not on file documented as of this encounter Procedures Procedure Name Priority Date/Time Associated Diagnosis Comments CARDIOLOGY REPORT 02/21/2018 12: 00 AM TELECOM ANALYST documented in this encounter Results * CARDIOLOGY REPORT (02/21/2018 12:00 AM TELECOM ANALYST) Anatomical Region Laterality Modality Other Narrative 02/21/2018 12:00 AM TELECOM ANALYST Ordered by an unspecified provider. us Historical Provider [facility] MICHAEL NAJERA Final Result documented in this encounter Visit Diagnoses Not on filedocumented in this encounter Additional Health Concerns Infection Onset Date Last Indicated Resolved Time COVID: Suspected 04/05/2023 04/05/2023 04/05/2023 12:57 PM TELECOM ANALYST documented as of this encounter Care Teams Terra Cotta Roofer Helper Relationship Specialty Start Date End Date Unknown, Notinfile PCP - General 11/23/18 11/26/18 No, Physician PCP - General 11/27/18 04/25/19 Dane Tavarez MD PCP - General Family Medicine 04/26/19 05/23/19 Ro Luna PA [address] [place] [address] PCP - General Family Medicine 05/24/19 12/09/19 Ro Luna PA [address] [place] [address] PCP - General 11/10/18 11/22/18 Dane Jane PA [address] [place] [address] PCP - General Family Practice 12/10/19 Roge Izaguirre MD [address] [place], [place] [address] Consulting Physician Family Medicine 05/24/19 Emilio Mckeon MD [facility] [facility] [address] [place] [address] Referring Physician Internal Medicine 06/08/19 Klaudia Cho DO [address] [place] [address] [place] [address] Referring Physician Urology 06/08/19 documented as of this encounter
--- OUTSIDE RECORDS SUMMARY | 2024-12-31 09:50 | XMS_ITS | Encounter Summary ---
Author Organization [facility] Health Address [address] [place] [address] Care Team Providers Care Drum Sprayer Name Role Phone Dane Jane Primary Care Provider [phone] Reason for Visit * Reason Onset Date Comments Order 02/22/2020 Encounter Details Date Type Department Care Team (Late st Contact Info) Description 02/22/2020 Telephone [facility] [address] [place] [address] Ru Livingston MD [facility] [phone] Order Social History Tobacco Use Types Packs/Day Years Used Date Smoking Tobacco: Some Days Cigarettes 0.1 25.7 Started: 1999 Smokeless Tobacco: Never Comments:2-3 cigarettes a da y at most Alcohol Use Standard Drinks/Week Comments No 0 (1 standard drink = 0.6 oz pur e alcohol) Sex and Gender Information Value Date Recorded Sex Assigned at Male 04/05/2022 9:34 PM COLD HEADER Legal Sex Male 11:46 AM CDT Gender Identity Male 04/05/2022 9:34 PM COLD HEADER Sexual Orientation Straight 04/05/2022 9: 34 PM COLD HEADER documented as of this encounter Functional Status [...] Ru Livingston MD - 02/22/2020 2:44 PM COLD HEADER PATIENT COMMUNICATION NOTE Dear Ms. Sullivan: Please [...] you with. Take care, Ru Livingston MD, [facility], [facility], [facility] Inspector Brake Lining, [facility] Professor of Internal Medicine Adjunct Waste Duster of Neurology Division of Pulmonary, Critical Care, and Sleep Medicine [facility] ===View-only below this line=== ----- Message ----- From: Gwendolyn Sullivan Sent: 02/22/2020 2:16 PM COLD HEADER To: Ru Livingston MD HEADER * Telephone Encounter - Gwendolyn Sullivan - 02/22/2020 2:15 PM CST Patient is asking if he can preform an HSt instead of a PSG? HEADER documented in this encounter Plan of Treatment Not on file documented as of this encounter Visit Diagnoses Not on filedocumented in this encounter Care Teams Drum Sprayer Relationship Specialty Start Date End Date Dane Jane PA [address] [place] [address] PCP - General 01/18/20 documented as of this encounter
--- OUTSIDE RECORDS SUMMARY | 2024-12-31 09:50 | XMS_ITS | Clinical Summary ---
Author Organization [facility] Address [address] [place] [address] Care Team Providers Care Hockey Scout Name Role Phone Dane Jane Primary Care Provider [phone] Allergies Active Allergy Reactions Criticality Noted Date [...] 0 Active Nebulizers (VIOS AEROSOL DELIVERY SYSTEM) [facility] UTD 9 Active ipratropium-albu terol 0.5-2.5 (3) [...] flank pain 05/03/2019 Hydroureter 05/03/2019 Cystic fibrosis ([facility]) 03/21/2019 Overview (10/10/2019): Last Assessment & Plan: [...] while taking the Xanax. Requested records from [place] and [place] I Anxiety 04/07/2018 Syncope and collapse 04/07/2018 Tobacco use 02/10/2018 Overview (10/10/2019): Last Assessment & Plan: Quitting smoking is one of the most important things you can do for your health. Contact 9-472-TQZS-NOW or www.smokefree.gov for more information. Irritable bowel syndrome 02/10/2018 Overview (10/10/2019): Last Assessment & Plan: Stable continue meds Panlobular emphysema ([facility]) 8 Overview (10/10/2019): Last Assessment & Plan: Followed by pulmonary Immunizations Immunization Administration Dates Next Due Influenza (Generic) 02/10/2018 Influenza Adult (Generic) 01/22/2019 Tdap (Adacel) 11/10/2018 Tdap (Generic) 11/10/2018 Family History Medical History Relation Comments Colon Cancer Father Lung Disease Maternal Grandmother COPD Mother Relation Status Comments Father Maternal Grandmother Mother Alive Social History Tobacco Use Types Packs/Day Years Used Date Smoking Tobacco: Every Day Cigarettes 0.3 26.7 Started: 1998 Smokeless Tobacco: Never Tobacco Cessation:Ready [...] 11:31 AM CDT Height 180.3 cm (5' 11) 08/13/2023 11:31 AM CDT Body Mass Index 25.66 08/13/2023 11:31 AM CDT Plan of Treatment Health Maintenance Due Date Last Done Comments Annual Physical 1986 Hepatitis C 2001 Hepatitis B Vaccines (1 of 3 - 19+ 3-dose series) 2002 HPV Vaccines (1 - 3-dose SCD M series) 2010 Pneumococcal Vaccine: Pediatrics (0 to 5 Years) and At-Risk Patients (6 to 49 Years) (2 of 2 - PPSV23) 12/11/2017 10/16/2017 COVID-19 Vaccine (3 - 2024-2 6 season) 2024 09/29/2020, 09/05/2020 DTaP, Tdap and Td Vaccines ( 3 - Td or Tdap) 11/10/2028 11/10/2018, 11/10/2018 Meningococcal B Vaccine Aged Out No l onger eligible based on patient's age to complete this topic Meningococcal Vaccine Aged Out No tess tommy eligible based on patient's age to complete this topic RSV Immunizations Under 20 Months Aged Out No longer eligible b ased on patient's age to complete this topic Insurance [employer] Advance Directives Documents on File Type Date Recorded Patient Wildlife And Game Protector Expl anation Legal Documents 12/03/2021 8:29 AM [employer] Documents faxed back 12/02/21 Legal Documents 08/13/2020 11:11 AM RECVD & CMPLTD ATTY REQ. FOR HB BILLS FOR MEDHAT FOR [employer] Legal Documents 07/15/2020 10:09 AM RECVD & CMPLTD ATTY REQ. FOR HB BILLS FOR [employer] FOR [employer] Care Teams Hockey Scout Relationship Specialty Start Date End Date Dane Jane PA PCP - General PHYSICIAN ELEVATOR OPERATOR 10/21/20
--- OUTSIDE RECORDS SUMMARY | 2024-12-31 09:50 | XMS_ITS | Encounter Summary ---
Author Organization [facility] Address [address] [facility] [place] [address] Care Team Providers Care Platinum And Palladium Kettle Tender Name Role Phone Dane Jane Primary Care Provider [phone] Reason for Visit * Reason Onset Date Comments Instructions 04/29/2020 Spoke with patiankush nt about with holding Spiriva x 7 days prior to Methacholine Challenge testing; reviewed Symbicort with hold x 2 days prior to test and Albuterol MDI withheld x 6 hours - [employer] SHIPPING ROOM SUPERVISOR Encounter Details Date Type Department Care Team (Late st Contact Info) Description 04/29/2020 Telephone [facility] [address] [place] [phone] Emilio Mckeon MD [address] [facility] [address] [facility] PULMON[facility]/[place] [address] Instructions (Spoke with patient about with holding Spiriva x 7 days prior to Methacholine Challenge testing; reviewed Symbicort with hold x 2 days prior to test and Albuterol MDI withheld x 6 hours - [employer] SHIPPING ROOM SUPERVISOR) Social History Tobacco Use Types Packs/Day Years Used Date Smoking Tobacco: Some Days Cigarettes 0.1 25.7 Started: 1999 Smokeless Tobacco: Never Comments:2-3 cigarettes a da y at most Alcohol Use Standard Drinks/Week Comments No 0 (1 standard drink = 0.6 oz pur e alcohol) Sex and Gender Information Value Date Recorded Sex Assigned at Male 04/05/2022 9:34 PM THERAPEUTIC RADIOLOGIST Legal Sex Male 11:46 AM CDT Gender Identity Male 04/05/2022 9:34 PM THERAPEUTIC RADIOLOGIST Sexual Orientation Straight 04/05/2022 9: 34 PM THERAPEUTIC RADIOLOGIST COVID-19 Exposure Response Date Recorded In the last month, have you been in contact with someone who was confirmed or suspected to have Coronavirus / COVID-19? Unable to assess 04/29/2020 2:21 PM THERAPEUTIC RADIOLOGIST documented as of this encounter Functional Status * Is person deaf or have serious hearing difficulty? Answer Date of Assessment Author No 03/19/2020 2:20 PM THERAPEUTIC RADIOLOGIST Anaid Goncalves RN * Is person blind [...] on filedocumented in this encounter Care Teams Platinum And Palladium Kettle Tender Relationship Specialty Start Date End Date Dane Jane PA [address] [place] [address] PCP - General 01/18/20 documented as of this encounter
--- OUTSIDE RECORDS SUMMARY | 2024-12-31 09:50 | XMS_ITS | Encounter Summary ---
Author Organization [facility] Facility Care Team Providers Care Grain Trimmer Name Role Phone Unknown, Notinfile Primary Care Provider Unavail able No, Physician Primary Care Provider Dane Tavarez MD Primary Care Provider [phone] Ro Luna Primary Care Provider [phone] Roge Izaguirre MD Unavailable + [phone] Emilio Mckeon MD Unavailable + [phone] Klaudia Cho DO Unavailable [phone] Ro Luna Primary Care Provider [phone] Dane Jane Primary Care Provider [phone] Encounter Details Date Type Department Care Team (Latest Contact Info) Description 02/10/2018 Orders Only [facility] CLINCONV ProviderBraydon MD [address] [place] [address] Social History Tobacco Use Types Packs/Day Years Used Date Smoking Tobacco: Never Assessed Sex and Gender Information Value Date Recorded Sex Assigned at Not on file Legal Sex Male 7:33 PM VICE PRESIDENT GLOBAL ADVERTISING SALES Gender Identity Not on file Sexual Orientation [...] COVID: Suspected 04/05/2023 04/05/2023 04/05/2023 12:57 PM VICE PRESIDENT GLOBAL ADVERTISING SALES documented as of this encounter Care Teams Grain Trimmer Relationship Specialty Start Date End Date Unknown, Notinfile PCP - General 11/23/18 11/26/18 No, Physician PCP - General 11/27/18 04/25/19 Dane Tavarez MD PCP - General Family Medicine 04/26/19 05/23/19 Ro Luna PA [address] [place] [address] PCP - General Family Medicine 05/24/19 12/09/19 Ro Luna PA [address] [place] [address] PCP - General 11/10/18 11/22/18 Dane Jane PA [address] [place] [address] PCP - General Family Practice 12/10/19 Roge Izaguirre MD [address] [place] [address] Consulting Physician Family Medicine 05/24/19 Emilio Mckeon MD [address] [place] [address] Referring Physician Internal Medicine 06/08/19 Klaudia Cho DO [address] [facility] [address] [place] [address] [place] [address] Referring Physician Urology 06/08/19 documented as of this encounter
--- OUTSIDE RECORDS SUMMARY | 2024-12-31 09:50 | XMS_ITS | Encounter Summary ---
Author Organization [facility] Facility Care Team Providers Care Pipe Turner Name Role Phone Unknown, Notinfile Primary Care Provider Unavail able No, Physician Primary Care Provider [phone] Dane Tavarez MD Primary Care Provider [phone] Ro Luna Primary Care Provider [phone] Roge Izaguirre MD Unavailable + [phone] Emilio Mckeon MD Unavailable + [phone] Klaudia Cho DO Unavailable [phone] Ro Luna Primary Care Provider [phone] Dane Jane Primary Care Provider [phone] Encounter Details Date Type Department Care Team (Latest Contact Info) Description 12/11/2017 Orders Only [facility] CLINCONV ProviderBraydon MD [address] [place] [address] Social History Tobacco Use Types Packs/Day Years Used Date Smoking Tobacco: Never Assessed Sex and Gender Information Value Date Recorded Sex Assigned at Not on file Legal Sex Male 7:33 PM TEASELER Gender Identity Not on file Sexual Orientation [...] COVID: Suspected 04/05/2023 04/05/2023 04/05/2023 12:57 PM TEASELER documented as of this encounter Care Teams Pipe Turner Relationship Specialty Start Date End Date Unknown, Notinfile PCP - General 11/23/18 11/26/18 No, Physician PCP - General 11/27/18 04/25/19 Dane Tavarez MD PCP - General Family Medicine 04/26/19 05/23/19 Ro Luna PA [address] [place] [address] PCP - General Family Medicine 05/24/19 12/09/19 Ro Luna PA [address] [place] [address] PCP - General 11/10/18 11/22/18 Dane Jane PA [address] [place] [address] PCP - General Family Practice 12/10/19 Roge Izaguirre MD [address] [place] [address] Consulting Physician Family Medicine 05/24/19 Emilio Mckeon MD [address] [place] [address] Referring Physician Internal Medicine 06/08/19 Klaudia Cho DO [address] [facility] [address] [place] [address] [place] [address] Referring Physician Urology 06/08/19 documented as of this encounter
--- OUTSIDE RECORDS SUMMARY | 2024-12-31 09:50 | XMS_ITS | Encounter Summary ---
Author Organization [facility] Health Address [address] [facility] [place] [place] [address] Care Team Providers Care Sql Programmer Name Role Phone Dane Jane Primary Care Provider [phone] Reason for Visit * Reason Onset Date Comments Reminder Call 04/04/2024 No answer. Left voicemail. Encounter Details Date Type Department Care Team (Late st Contact Info) Description 04/04/2024 Telephone [facility] Pul[facility] [address] [facility], [place] [address] Rd Quintero MD [address] [place] [address] PULMONARY MED [address] [place] [phone] Reminder Call (No answer. Left voicemail.) [...] Sex Assigned at Male 04/05/2022 9:34 PM SHERIFF DEPUTY Legal Sex Male 11:46 AM CDT Gender Identity Male 04/05/2022 9:34 PM SHERIFF DEPUTY Sexual Orientation Straight 04/05/2022 9: 34 PM SHERIFF DEPUTY documented as of this encounter Functional Status * Is person deaf or have serious hearing difficulty? Answer Date of Assessment Author No 05/23/2023 6:08 PM Mikey Cuellar RN * Is person blind or have serious difficulty seeing? Answer Date of Assessment Author No 05/23/2023 6:08 PM SHERIFF DEPUTY Mikey Juárez RN * Does person have [...] appointment but no answer. Left a voicemail. IFF DEPUTY documented in this encounter Plan of Treatment Not on file documented as of this encounter Visit Diagnoses Not on filedocumented in this encounter Care Teams Sql Programmer Relationship Specialty Start Date End Date Dane Jane PA [address] [place] [address] PCP - General 01/18/20 documented as of this encounter
[2024-12-31 10:24] VITALS: BP 136/84; PULSE 84; RESP 18; O2SAT 98
== END 2024-12-31 10:26 | disposition home or self-care (01) ==
PROVIDERS: Student in an Organized Health Care Education/Training Program; Emergency Provider Nurse Practitioner Family; PCP Physician Assistant
DX: R10.9 Unspecified abdominal pain (principal); Z85.850 Personal history of malignant neoplasm of thyroid
CPT/HCPCS: 36415; 74177; 80053; 81003; 85025; 99284; Q9967

== ENCOUNTER 2025-01-04 12:27 | Outpatient (CLI) | payer OTHER, SELFPAY ==
--- OUTSIDE RECORDS SUMMARY | 2010-11-02 19:00 | XMS_ITS | Continuity of Care Document ---
Author Organization [facility] Address [address] [place] [address] Phone Care Team Providers Care Dinkey Operator Slag Name Role Phone Lisa Boyd MD Unavailable Unavailabl e Allergies, Adverse Reactions, Alerts Substance Reaction Status Criticality Sulfa (Sulfonamide Antibiotics) Other Active No Information Penicillins Other Active No Information Advance Directives Directive Yes / No Effective Date File Name No Information Encounters Encounter Description Practice Location Reason(s) For Visit Diagnoses Date Provider Providers Copied on Encounter [email or web address], [address], [place], [place], [id number], tel:[phone] [facility] No Information Oliver Gonzalez. [address], [id number]. tel:[phone] [email or web address], [address], [place], [place], [id number], tel:[phone] [facility] DIARRHEA Oliver Gonzalez. [address], [id number]. tel:[phone] Family History Family Member Type Diagnosis Age At Onset No Information Payers Payer name Insurance type Covered libertarian ID Authoriza tion(s) No Information Social History Type Description Quantity Date Captured Comments Sex Male Smoking Status No Information Chief Complaint And Reason For Visit No Information Reason For Referral Reason For Referral No Information History Of Present Illness Encounter Date Complaint History Of Prese nt Illness No Information Functional Status Date Functional Assessmen t No Information Instructions Date Instruction Additional Infor mation No Information Assessments Type Assessment Date No Information Patient Care Teams Name Effective Dates (start - stop) Status Members No Information
--- OUTSIDE RECORDS SUMMARY | 2015-06-16 09:10 | XMS_ITS | Continuity of Care Document ---
Author Organization [facility] Address [address] [place] [address] Phone Care Team Providers Care Buffet Manager Name Role Phone Inez Brian DO Unavailable Unavailable Allergies, Adverse Reactions, Alerts Substance Reaction Status Criticality Sulfa (Sulfonamide Antibiotics) Unknown Active No Information Penicillins Unknown Active No Information Procedures Procedure Date X-ray exam hand, 3+ views Office consultation, moderate 6 [facility] Screen Collection, 6 Medical Review Officer Advance Directives Directive Yes / No Effective Date File Name No Information Encounters Encounter Description Practice Location Reason(s) For Visit Diagnoses Date Provider Providers Copied on Encounter [facility], [address] [place] [address], [id number], [phone] [facility] No Information 6 Snehal Wiley. [address] [place] [address], [place] [address], [place], [place], [id number] , [place]. tel: [phone] Office consultation , [facility], [address] [place] [address], [id number], [place] tel:[phone] [facility] Unsp injury of left wrist, hand and finger(s), init encntr 6 Maday Brunner. [address] [place] [address], [place] [address], [place], [place], [id number] , [place]. tel: [phone] [facility], [address] [place] [address], [place], [id number], [place] [phone] [facility] Encounter for other administrative examinationsUnsp injury of left wrist, hand and finger(s), init encntr 6 Snehal Wiley. [address], [address], [place], [place], [id number] , [place]. tel: [phone] Family History Family Member Type Diagnosis Age At Onset Maternal grandmother Problem (finding) Diabetes Maternal grandmother Problem (finding) hypertension Maternal grandmother Problem (finding) Heart disease Maternal grandmother Problem (finding) Cancer, unknown Payers Payer name Insurance type Covered republican ID Authoriza tion(s) No Information Social History Type Description Quantity Date Captured Comments Alcohol Use Details No Caffeine Use Details Unknown Tobacco Use Status Light cigarette smok er (1-9 cigs/day) Smoking Status Light tobacco smoker Smoking Tobacco Use Details Cigarette: Years Used 15 Cigarette: 0.05 Packs per day, Pack Year: 0.75 Sex Male Chief Complaint And Reason For Visit No [...]
--- NOTE | ~2025-01-04 | XR_ITS ---
EXAMINATION: XR knee LT 3V, 01/04/2025 12:45 CDT HISTORY: Pain in lt knee COMPARISON: No comparisons available. Findings: No acute fracture or malalignment. No significant degenerative changes. Soft tissues unremarkable. Impression: No acute fracture or malalignment. Reviewed, dictated and finalized at location A. Impression: No acute fracture or malalignment.
--- OUTSIDE RECORDS SUMMARY | 2025-01-04 12:32 | XMS_ITS | Encounter Summary ---
Author Organization [facility] Health Address [address] [facility] [place] [address] Care Team Providers Care Resolute Professional Name Role Phone Dane Jane Primary Care Provider [phone] Reason for Visit * Reason Onset Date Comments Reminder Call 04/04/2024 No answer. Left voicemail. Encounter Details Date Type Department Care Team (Late st Contact Info) Description 04/04/2024 Telephone [facility] - Pulmonology [address] [facility], [place] [address] Rd Quintero MD [address] [place] [address] PULMONARY MED [address] [place] [phone] Reminder Call (No answer. Left voicemail.) [...] Sex Assigned at Male 04/05/2022 9:34 PM WORK CHECKER Legal Sex Male 11:46 AM CDT Gender Identity Male 04/05/2022 9:34 PM WORK CHECKER Sexual Orientation Straight 04/05/2022 9: 34 PM WORK CHECKER documented as of this encounter Functional Status * Is person deaf or have serious hearing difficulty? Answer Date of Assessment Author No 05/23/2023 6:08 PM Mikey Cuellar RN * Is person blind or have serious difficulty seeing? Answer Date of Assessment Author No 05/23/2023 6:08 PM WORK CHECKER Mikey Juárez RN * Does person have [...] appointment but no answer. Left a voicemail. CHECKER documented in this encounter Plan of Treatment Not on file documented as of this encounter Visit Diagnoses Not on filedocumented in this encounter Care Teams Resolute Professional Relationship Specialty Start Date End Date Dane Jane PA [address] [place] [address] PCP - General 01/18/20 documented as of this encounter
--- OUTSIDE RECORDS SUMMARY | 2025-01-04 12:32 | XMS_ITS | Encounter Summary ---
Author Organization [facility] Facility Care Team Providers Care Advanced Manufacturing Engineer Name Role Phone Unknown, Notinfile Primary Care Provider Unavail able No, Physician Primary Care Provider Dane Tavarez MD Primary Care Provider [phone] Ro Luna Primary Care Provider [phone] Roge Izaguirre MD Unavailable + [phone] Emilio Mckeon MD Unavailable + [phone] Klaudia Cho DO Unavailable [phone] Ro Luna Primary Care Provider [phone] Dane Jane Primary Care Provider [phone] Encounter Details Date Type Department Care Team (Latest Contact Info) Description 02/10/2018 Orders Only [facility] CLINCONV ProviderBraydon MD [address] [place] [address] Social History Tobacco Use Types Packs/Day Years Used Date Smoking Tobacco: Never Assessed Sex and Gender Information Value Date Recorded Sex Assigned at Not on file Legal Sex Male 7:33 PM COUNTER MOLDER Gender Identity Not on file Sexual Orientation [...] COVID: Suspected 04/05/2023 04/05/2023 04/05/2023 12:57 PM COUNTER MOLDER documented as of this encounter Care Teams Advanced Manufacturing Engineer Relationship Specialty Start Date End Date Unknown, Notinfile PCP - General 11/23/18 11/26/18 No, Physician PCP - General 11/27/18 04/25/19 Dane Tavarez MD PCP - General Family Medicine 04/26/19 05/23/19 Ro Luna PA [address] [place] [address] PCP - General Family Medicine 05/24/19 12/09/19 Ro Luna PA [address] [place] [address] PCP - General 11/10/18 11/22/18 Dane Jane PA [address] [place] [address] PCP - General Family Practice 12/10/19 Roge Izaguirre MD [address] [place] [address] Consulting Physician Family Medicine 05/24/19 Emilio Mckeon MD [address] [place] [address] Referring Physician Internal Medicine 06/08/19 Klaudia Cho DO [address] [facility] [address] [place] [address] [place] [address] Referring Physician Urology 06/08/19 documented as of this encounter
--- OUTSIDE RECORDS SUMMARY | 2025-01-04 12:32 | XMS_ITS | Encounter Summary ---
Author Organization [facility] Health Address [address] [place] [address] Care Team Providers Care Farmworker Rice Name Role Phone Dane Jane Primary Care Provider [phone] Reason for Visit * Reason Comments Refill Request Encounter Details Date Type Department Care Team (Late st Contact Info) Description 06/15/2021 Refill [facility] Pul[facility], Critical Care and Sleep Medicine [address] [facility] [place] [phone] Emilio Mckeon MD [address] [facility] 2[address] DIV OF PULMONARY/[place] [address] Refill Request Social History Tobacco Use Types Packs/Day Years Used Date Smoking Tobacco: Former Cigarettes 0.1 21 2 000 - 04/18/2020 Smokeless Tobacco: Never Comments:2-3 cigarettes a da y at most Alcohol Use Standard Drinks/Week Comments No 0 (1 standard drink = 0.6 oz pur e alcohol) Sex and Gender Information Value Date Recorded Sex Assigned at Male 04/05/2022 9:34 PM WATER/WASTEWATER PROJECT ENGINEER Legal Sex Male 11:46 AM CDT Gender Identity Male 04/05/2022 9:34 PM WATER/WASTEWATER PROJECT ENGINEER Sexual Orientation Straight 04/05/2022 9: 34 PM WATER/WASTEWATER PROJECT ENGINEER documented as of this encounter Functional Status [...] (HCC) documented in this encounter Care Teams Farmworker Rice Relationship Specialty Start Date End Date Dane Jane PA [address] [place] [address] PCP - General 01/18/20 documented as of this encounter
--- OUTSIDE RECORDS SUMMARY | 2025-01-04 12:32 | XMS_ITS | Encounter Summary ---
Author Organization [facility] Address [address] [facility] [place] [address] Care Team Providers Care Credit Risk Analytics Manager Name Role Phone Dane Jane Primary Care Provider [phone] Reason for Visit * Reason Onset Date Comments Instructions 04/29/2020 Spoke with patiankush nt about with holding Spiriva x 7 days prior to Methacholine Challenge testing; reviewed Symbicort with hold x 2 days prior to test and Albuterol MDI withheld x 6 hours - VGall INDUSTRIAL PSYCHOLOGY PROFESSOR Encounter Details Date Type Department Care Team (Late st Contact Info) Description 04/29/2020 Telephone [facility] PFT [address] [place] [phone] Emilio Mckeon MD [address] [facility] [address] [facility] [address] Instructions (Spoke with patient about with holding Spiriva x 7 days prior to Methacholine Challenge testing; reviewed Symbicort with hold x 2 days prior to test and Albuterol MDI withheld x 6 hours - VGall INDUSTRIAL PSYCHOLOGY PROFESSOR) Social History Tobacco Use Types Packs/Day Years Used Date Smoking Tobacco: Some Days Cigarettes 0.1 25.7 Started: 1999 Smokeless Tobacco: Never Comments:2-3 cigarettes a da y at most Alcohol Use Standard Drinks/Week Comments No 0 (1 standard drink = 0.6 oz pur e alcohol) Sex and Gender Information Value Date Recorded Sex Assigned at Male 04/05/2022 9:34 PM EQUIPMENT MAINTENANCE TECH Legal Sex Male 11:46 AM CDT Gender Identity Male 04/05/2022 9:34 PM EQUIPMENT MAINTENANCE TECH Sexual Orientation Straight 04/05/2022 9 :34 PM EQUIPMENT MAINTENANCE TECH COVID-19 Exposure Response Date Recorded In the last month, have you been in contact with someone who was confirmed or suspected to have Coronavirus / COVID-19? Unable to assess 04/29/2020 2:21 PM EQUIPMENT MAINTENANCE TECH documented as of this encounter Functional Status * Is person deaf or have serious hearing difficulty? Answer Date of Assessment Author No 03/19/2020 2:20 PM EQUIPMENT MAINTENANCE TECH Anaid Goncalves RN * Is person blind [...] on filedocumented in this encounter Care Teams Credit Risk Analytics Manager Relationship Specialty Start Date End Date Dane Jane PA [address] [place] [address] PCP - General 01/18/20 documented as of this encounter
--- OUTSIDE RECORDS SUMMARY | 2025-01-04 12:32 | XMS_ITS | Clinical Summary ---
Author Organization [facility] Address [address] [facility] [address] [place] [address] Care Team Providers Care Telephone Sterilizer Name Role Phone Dane Jane Primary Care Provider [phone] Source Comments [facility],non-owned Affiliates and Associated Physician Practices is amultiple site organization consisting of ambulatory clinics and hospital sitesin [place], [place], [place] and [place]. This disclosure is being madepursuant to the Care Everywhere program and may not contain all information available regarding this patient. Last updated 18.[facility] Allergies Active Allergy Reactions Criticality Noted Date [...] 04/02/2019 Immunizations Immunization Administration Dates Next Due [employer] primary monoval ent 12+ yr 0.3mL Purple [...] Sex Assigned at Male 04/05/2022 9:34 PM SOCIAL SERVICES COORDINATOR Legal Sex Male 11:46 AM CDT Gender Identity Male 04/05/2022 9:34 PM SOCIAL SERVICES COORDINATOR Sexual Orientation Straight 04/05/2022 9: 34 PM SOCIAL SERVICES COORDINATOR Last Filed Vital Signs Vital Sign Reading Time Taken Comments Blood Pressure 118/76 07/19/2024 3:49 PM CDT Pulse 68 07/19/2024 3:49 PM CDT Temperature 36.8 C (98.3 F) 07/19/2024 3:49 PM CDT Respiratory Rate 18 07/19/2024 3:49 PM CDT Oxygen Saturation 96% 07/19/2024 3:49 PM CDT Inhaled Oxygen Concentration 21% 05/23/2023 5 :30 PM SOCIAL SERVICES COORDINATOR Weight 82.1 kg (181 lb) 07/19/2024 3:49 [...] this topic Medical Devices Implanted Type Area College Or [employer] Faculty Member Device Identifier Shelf Expiration Date Model / Serial / Lot Stent Uret 6fr 28cm Pgtl Crv Tpr Tip Implanted:Qty: 1 on 05/05/2019 by Klaudia Cho DO at [facility] Left: Ureter Visual Pro 360med 03/04/2022 [id number] / / [id number] Procedures Procedure Name Priority Date/Time Associated Diagnosis Comments HEMOGLOBIN A1C Routine 01/31/2024 2:46 PM CDT Paresthesia Numbness in feet Numbness in both hands Migraine without aura and without status migrainosus, not intractable Daily headache from Last 3 Months or Most Recently Relevant to Health Maintenance Results * HEMOGLOBIN A1C (01/31/2024 2:46 PM CDT) Hemoglobin A1c 5.4 <=5.6 % 02/01/2024 9:30 AM CDT [facility] Estimated Average Glucose 108 mg/dL 02/01/2024 9:30 AM CDT [facility] Comment: HbA1c Interpretation: Normal : < 5.7% Pre-diabetes: 5.7-6.4% Diabetes: Equal to or greater than 6.5% Test results diagnostic of diabetes should be repeated for confirmation. Treatment target values recommended by ADA and other clinical organizations should be used to evaluate metabolic control in patients. Reference: [place] Diabetes Association, Standards of Care in Diabetes [...] 01/31/2024 3:53 PM CDT us Delmy Renee MARKETING COMMUNICATIONS ASSISTANT-ROTARY VENEER MACHINE OPERATOR LAB - CHEMISTRY ORDERA BLES Final Result [facility] [address] [place] [id number], [facility] [phone] from Last 3 Months or Most Recently Relevant to Health Maintenance Insurance [facility] Advance Directives * Full Code (Latest Code Status on File) Date Activated Date Inactivated Comments 05/03/2019 4:23 PM 05/07/2019 4:38 PM Care Teams Telephone Sterilizer Relationship Specialty Start Date End Date Dane Jane PA [address] [place] [address] PCP - General 01/18/20
--- OUTSIDE RECORDS SUMMARY | 2025-01-04 12:32 | XMS_ITS | Encounter Summary ---
Author Organization [facility] Address [address] [place] [address] Care Team Providers Care Cab Station Attendant Name Role Phone Anali Mccann APRN-EDUCATION ANALYST Primary Care Provider + Anali Mccann APRN-EDUCATION ANALYST Primary Care Provider + Dane Jane Primary Care Provider [phone] Reason for Visit * Reason Onset Date Comments Instructions 03/30/2019 Left VM message for withholding respiratory medications prior to Methacholine Challenge testing - VGall; CPFT; SPLICING MACHINE OPERATOR AUTOMATIC Encounter Details Date Type Department Care Team (Late st Contact Info) Description 03/30/2019 Telephone [facility] [address] [place] [id number] Argelia Oden RCP Instructions (Left VM message for withholding respiratory medications prior to Methacholine Challenge testing - VGall; CPFT; SPLICING MACHINE OPERATOR AUTOMATIC) Social History Tobacco Use Types Packs/Day Years Used Date Smoking Tobacco: Smoker, Current Status Unknown Cigarettes Smokeless Tobacco: Never Comments:1 pack a week Alcohol Use Standard Drinks/Week Comments No 0 (1 standard drink = 0.6 oz pur e alcohol) Sex and Gender Information Value Date Recorded Sex Assigned at Male 04/05/2022 9:34 PM SALES MGR Legal Sex Male 11:46 AM CDT Gender Identity Male 04/05/2022 9:34 PM SALES MGR Sexual Orientation Straight 04/05/2022 9: 34 PM SALES MGR documented as of this encounter Plan of Treatment Not on file documented as of this encounter Visit Diagnoses Not on filedocumented in this encounter Care Teams Cab Station Attendant Relationship Specialty Start Date End Date Anali Mccann APRN-CNP PCP - General 01/12/19 12/24/19 Anali Mccann APRN-CNP [address] [place] [address] PCP - General 12/25/19 01/17/20 Dane Jane PA [address] [place] [address] PCP - General 01/18/20 documented as of this encounter
--- OUTSIDE RECORDS SUMMARY | 2025-01-04 12:32 | XMS_ITS | Clinical Summary ---
Author Organization [facility] Address [address] [place] [address] Phone Care Team Providers Care Fixed Interest Dealer Name Role Phone Unavailable Primary Care Provider Unavailabl e Social History Tobacco Use Types Packs/Day Years Used Date Smoking Tobacco: Never Assessed Sex and Gender Information Value Date Recorded Sex Assigned at Not on file Legal Sex Male 10:00 AM FOUNDRY EQUIPMENT MECHANIC Gender Identity Not on file Sexual Orientation Not on file Plan of Treatment Health Maintenance Due Date Last Done Comments DTAP/TDAP/TD VACCINES (1 - Tdap) 2002 HEPATITIS B VACCINES (1 of 3 - 19+ 3-dose series) 04/18 HPV VACCINES (1 - 3-dose SCDM series) 2010 INFLUENZA VACCINE (#1) 2024 01/22/2019 Insurance [place]ICAID [place]
--- OUTSIDE RECORDS SUMMARY | 2025-01-04 12:32 | XMS_ITS | Clinical Summary ---
Author Organization [facility] Address [address] [place] [address] Care Team Providers Care Configuration Engineer Name Role Phone Dane Jane Primary Care Provider [phone] Allergies Active Allergy Reactions Criticality Noted Date [...] 0 Active Nebulizers (VIOS AEROSOL DELIVERY SYSTEM) [facility] UTD 9 Active ipratropium-albu [...] flank pain 05/03/2019 Hydroureter 05/03/2019 Cystic fibrosis ([facility]) 03/21/2019 Overview (10/10/2019): Last Assessment & [...] while taking the Xanax. Requested records from [place] and [place] I Anxiety 04/07/2018 Syncope and collapse 04/07/2018 Tobacco use 02/10/2018 Overview (10/10/2019): Last Assessment & Plan: Quitting smoking is one of the most important things you can do for your health. Contact 7-797-MOCJ-NOW or www.smokefree.gov for more information. 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 FOR HB BILLS FOR MEDHAT FOR [employer] Legal Documents 07/15/2020 10:09 AM RECVD & CMPLTD ATTY REQ. FOR HB BILLS FOR MEDHAT FOR [employer] Care Teams Configuration Engineer Relationship Specialty Start Date End Date Dane Jane PA PCP - General PHYSICIAN WEED SCIENCE RESEARCH TECHNICIAN 10/21/20
--- OUTSIDE RECORDS SUMMARY | 2025-01-04 12:32 | XMS_ITS | Clinical Summary ---
Author Organization [facility] Address [address] [place] [address] Phone Care Team Providers Care Carbon Cutter Name Role Phone Dane Jane Primary Care Provider [phone] Allergies Active Allergy Reactions Criticality Noted Date [...] on file Legal Sex Male 7:58 AM ASSOCIATE PRODUCT INTEGRITY ENGINEER Gender Identity Not on file Sexual [...] Insurance MEDICAID [employer] Care Teams Carbon Cutter Relationship Specialty Start Date End Date Dane Jane PAC [address] [place] [address] PCP - General Physician Gravel Inspector 05/01/21
--- OUTSIDE RECORDS SUMMARY | 2025-01-04 12:32 | XMS_ITS | Encounter Summary ---
Author Organization [facility] Health Address [address] [facility] [place] [address] Care Team Providers Care Medical Surgery Nurse Name Role Phone Dane Jane Primary Care Provider [phone] Reason for Visit * Reason Onset Date Comments Order 02/22/2020 Encounter Details Date Type Department Care Team (Late st Contact Info) Description 02/22/2020 Telephone [facility] [address] [place] [address] Ru Livingston MD [facility] [address] [id number] Order Social History Tobacco Use Types Packs/Day Years Used Date Smoking Tobacco: Some Days Cigarettes 0.1 25.7 Started: 1999 Smokeless Tobacco: Never Comments:2-3 cigarettes a da y at most Alcohol Use Standard Drinks/Week Comments No 0 (1 standard drink = 0.6 oz pur e alcohol) Sex and Gender Information Value Date Recorded Sex Assigned at Male 04/05/2022 9:34 PM ACTUARIAL ASSOCIATE Legal Sex Male 11:46 AM CDT Gender Identity Male 04/05/2022 9:34 PM ACTUARIAL ASSOCIATE Sexual Orientation Straight 04/05/2022 9: 34 PM ACTUARIAL ASSOCIATE documented as of this encounter Functional Status [...] Ru Livingston MD - 02/22/2020 2:44 PM ACTUARIAL ASSOCIATE PATIENT COMMUNICATION NOTE Dear Ms. Sullivan: Please [...] you with. Take care, Ru Livingston MD, [facility], [facility], [facility] Judge, [facility] Professor of Internal Medicine Adjunct Liquor Tester of Neurology Division of Pulmonary, Critical Care, and Sleep Medicine [facility] ===View-only below this line=== ----- Message ----- From: Gwendolyn Sullivan Sent: 02/22/2020 2:16 PM ACTUARIAL ASSOCIATE To: Ru Livingston MD ARIAL ASSOCIATE * Telephone Encounter - Gwendolyn Sullivan - 02/22/2020 2:15 PM CST Patient is asking if he can preform an HSt instead of a PSG? ARIAL ASSOCIATE documented in this encounter Plan of Treatment Not on file documented as of this encounter Visit Diagnoses Not on filedocumented in this encounter Care Teams Medical Surgery Nurse Relationship Specialty Start Date End Date Dane Jane PA [address] [place] [address] PCP - General 01/18/20 documented as of this encounter
--- OUTSIDE RECORDS SUMMARY | 2025-01-04 12:32 | XMS_ITS | Clinical Summary ---
Author Organization [facility] Address [address] [place] [address] Care Team Providers Care Rn Documentation Specialist Name Role Phone Roge Izaguirre MD Unavailable [phone] Emilio Mckeon MD Unavailable [phone] Klaudia Cho DO Unavailable Dane Jane Primary Care Provider [phone] Allergies Active Allergy Reactions Criticality Noted Date [...] 06/08/2019 Assessment & Plan (06/08/2019 10:05 AM PROGRAM ARRANGER): I explained to patient I would refill the Xanax at 1 mg b.i.d. only until we can get him to see a psychiatrist. Patient needs to not use the medical marijuana while taking the Xanax. Requested records from [facility] Health maintenance examination 06/08/2019 Overview (06/08/2019): PMH: 06/08/2019 Last colonoscopy/cologuard: 03/2019 Last tdap: 11/10/2018 Last Prevnar/pneumovax:2019 Last Shingrix: Last eye exam: Assessment & Plan (06/08/2019 10:06 AM PROGRAM ARRANGER): PMH: 06/08/2019 Last colonoscopy/cologuard: 03/2019 Last tdap: 11/10/2018 Last Prevnar/pneumovax:2019 Last Shingrix: Last eye exam: Requested record BMI 21.0-21.9, adult 06/08/2019 Assessment & Plan (06/08/2019 10:04 AM PROGRAM ARRANGER): BMI is okay. Normal range is 18-25 and overweight is 25-30. Continue to work on eating healthy and exercising at least 150 minutes per week. Cystic fibrosis 03/21/2019 Assessment & Plan (06/08/2019 10:04 AM PROGRAM ARRANGER): Followed by pulmonary Anxiety 04/07/2018 Syncope and collapse 04/07/2018 Hypothyroid 02/10/2018 Assessment & Plan (06/08/2019 10:05 AM PROGRAM ARRANGER): Patient has been out of meds since March. Refilled meds and patient to check his labs in 6-8 weeks Irritable bowel syndrome wit h both constipation and diarrhea 02/10/2018 Assessment & Plan (06/08/2019 10:05 AM PROGRAM ARRANGER): Stable continue meds Panlobular emphysema 02/10/2018 Assessment & Plan (06/08/2019 10:05 AM PROGRAM ARRANGER): Followed by pulmonary Tobacco use 02/10/2018 Assessment & Plan (06/08/2019 10:05 AM PROGRAM ARRANGER): Quitting smoking is one of the most important things you can do for your health. Contact 5-850-FRUM-NOW or www.smokefree.gov for more information. 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 Not on file Not on file Obstetrics History Last Filed Vital Signs Vital Sign Reading Time Taken Comments Blood Pressure 116/66 03/21/2024 11:15 AM PROGRAM ARRANGER Pulse 81 03/21/2024 11:15 AM PROGRAM ARRANGER Temperature 36.8 C (98.2 F) 04/06/2023 3:08 PM PROGRAM ARRANGER Respiratory Rate 18 04/06/2023 3:08 PM PROGRAM ARRANGER Oxygen Saturation 93% 04/06/2023 3:08 PM PROGRAM ARRANGER Inhaled Oxygen Concentration - - Weight 86.5 kg (190 lb 11.2 oz) 024 11:15 AM PROGRAM ARRANGER Height 180.3 cm (5' 11) 03/21/2024 11: 15 AM PROGRAM ARRANGER Body Mass Index 26.6 03/21/2024 11:15 AM PROGRAM ARRANGER Plan of Treatment Health Maintenance Due Date [...] - Td or Tdap) 11/10/2028 Insurance [facility] Advance Directives For more information, please contact: [phone] * Full Code (Latest Code Status on File) Date Activated Date Inactivated Comments 04/05/2023 6:42 PM 04/06/2023 8:56 PM Care Teams Rn Documentation Specialist Relationship Specialty Start Date End Date Dane Jane PA [address] [place] [address] PCP - General Family Practice 12/10/19 Roge Izaguirre MD [address] [place] [address] Consulting Physician Family Medicine 05/24/19 Emilio Mckeon MD [address] [facility] [address] [place] [address] Referring Physician Internal Medicine 06/08/19 Klaudia Cho DO [address] [place] [address] Referring Physician Urology 06/08/19
--- OUTSIDE RECORDS SUMMARY | 2025-01-04 12:32 | XMS_ITS | Encounter Summary ---
Author Organization [facility] Facility Care Team Providers Care Shaft Headman Name Role Phone Unknown, Notinfile Primary Care Provider Unavail able No, Physician Primary Care Provider [phone] Dane Tavarez MD Primary Care Provider [phone] Ro Luna Primary Care Provider [phone] Roge Izaguirre MD Unavailable + [phone] Emilio Mckeon MD Unavailable + [phone] Klaudia Cho DO Unavailable [phone] Ro Luna Primary Care Provider [phone] Dane Jane Primary Care Provider [phone] Encounter Details Date Type Department Care Team (Latest Contact Info) Description 12/11/2017 Orders Only [facility] CLINCON[facility] ProviderBraydon MD [address] [place] [address] Social History Tobacco Use Types Packs/Day Years Used Date Smoking Tobacco: Never Assessed Sex and Gender Information Value Date Recorded Sex Assigned at Not on file Legal Sex Male 7:33 PM ORTHOPEDIC SHOES SALESPERSON Gender Identity Not on file Sexual Orientation [...] COVID: Suspected 04/05/2023 04/05/2023 04/05/2023 12:57 PM ORTHOPEDIC SHOES SALESPERSON documented as of this encounter Care Teams Shaft Headman Relationship Specialty Start Date End Date Unknown, Notinfile PCP - General 11/23/18 11/26/18 No, Physician PCP - General 11/27/18 04/25/19 Dane Tavarez MD PCP - General Family Medicine 04/26/19 05/23/19 Ro Luna PA [address] [place] [address] PCP - General Family Medicine 05/24/19 12/09/19 Ro Luna PA [address] [place] [address] PCP - General 11/10/18 11/22/18 Dane Jane PA [address] [place] [address] PCP - General Family Practice 12/10/19 Roge Izaguirre MD [address] [place] [address] Consulting Physician Family Medicine 05/24/19 Emilio Mckeon MD [address] [place] [address] Referring Physician Internal Medicine 06/08/19 Klaudia Cho DO [address] [facility] [address] [place] [address] Referring Physician Urology 06/08/19 documented as of this encounter
--- OUTSIDE RECORDS SUMMARY | 2025-01-04 12:32 | XMS_ITS | Encounter Summary ---
Author Organization [facility] Facility Care Team Providers Care Restaurant Attendant Name Role Phone Unknown, Notinfile Primary Care Provider Unavail able No, Physician Primary Care Provider [phone] Dane Tavarez MD Primary Care Provider [phone] Ro Luna Primary Care Provider [phone] Roge Izaguirre MD Unavailable + [phone] Emilio Mckeon MD Unavailable + [phone] Klaudia Cho DO Unavailable [phone] Ro Luna Primary Care Provider [phone] Dane Jane Primary Care Provider [phone] Encounter Details Date Type Department Care Team (Latest Contact Info) Description 02/21/2018 Orders Only [facility] CLINCONV ProviderBraydon MD [address] [place] [address] Social History Tobacco Use Types Packs/Day Years Used Date Smoking Tobacco: Never Assessed Sex and Gender Information Value Date Recorded Sex Assigned at Not on file Legal Sex Male 7:33 PM DIRECTOR FIXED INCOME Gender Identity Not on file Sexual Orientation Not on file documented as of this encounter Plan of Treatment Not on file documented as of this encounter Procedures Procedure Name Priority Date/Time Associated Diagnosis Comments CARDIOLOGY REPORT 02/21/2018 12: 00 AM DIRECTOR FIXED INCOME documented in this encounter Results * CARDIOLOGY REPORT (02/21/2018 12:00 AM DIRECTOR FIXED INCOME) Anatomical Region Laterality Modality Other Narrative 02/21/2018 12:00 AM DIRECTOR FIXED INCOME Ordered by an unspecified provider. us Historical Provider [facility] MICHAEL NAJERA Final Result documented in this encounter Visit Diagnoses Not on filedocumented in this encounter Additional Health Concerns Infection Onset Date Last Indicated Resolved Time COVID: Suspected 04/05/2023 04/05/2023 04/05/2023 12:57 PM DIRECTOR FIXED INCOME documented as of this encounter Care Teams Restaurant Attendant Relationship Specialty Start Date End Date Unknown, Notinfile PCP - General 11/23/18 11/26/18 No, Physician PCP - General 11/27/18 04/25/19 Dane Tavarez MD PCP - General Family Medicine 04/26/19 05/23/19 Ro Luna PA [address] [place] [address] PCP - General Family Medicine 05/24/19 12/09/19 Ro Luna PA [address] [place] [address] PCP - General 11/10/18 11/22/18 Dane Jane PA [address] [place] [address] PCP - General Family Practice 12/10/19 Roge Izaguirre MD [address] [place], [place] [address] Consulting Physician Family Medicine 05/24/19 Emilio Mckeon MD [facility] [facility] [address] [place] [address] Referring Physician Internal Medicine 06/08/19 Klaudia Cho DO [address] [place] [address] Referring Physician Urology 06/08/19 documented as of this encounter
== END 2025-01-04 12:28 | disposition home or self-care (01) ==
PROVIDERS: PCP Physician Assistant; Visit Provider Physician Assistant
DX: M25.562 Pain in left knee (principal)
CPT/HCPCS: 73562

== ENCOUNTER 2025-02-13 10:36 | Outpatient (CLI) | payer OTHER, SELFPAY ==
--- NOTE | ~2025-02-13 | XR_ITS ---
Examination: XR shoulder RT min 2V Clinical History: pain in rt shoulder severe scoliosis, DISLOCATED 2 WEEKS AGO Comparison: None Technique: 4 views right shoulder Findings/impression: No acute findings- 1. No fracture or dislocation. 2. No significant degenerative changes glenohumeral joint. 3. Mild degenerative changes AC joint. Reviewed, dictated and finalized at location R.
--- NOTE | ~2025-02-13 | XR_ITS ---
EXAMINATION: XR scoliosis survey DATE: 02/13/2025 11:19 INDICATION: Scoliosis. Right shoulder pain. TECHNIQUE: Standing AP and lateral views of the entire spine were each obtained on 4 overlapping cranial to caudal images. COMPARISON: CT abdomen pelvis dated 12/31/2024 and two-view chest radiograph dated 12/19/2019 FINDINGS: Normal complement of 7 nonrib-bearing cervical, 12 paired rib bearing thoracic segments and 5 nonrib-bearing lumbar segments. 16 degree upper thoracic levoscoliosis measured between T2 and T5. 10 degrees compensatory dextrocurvature between T5 and T8. 9 degree lumbar levocurvature measured between T12 and L4. The plumbline from the epicenter of C7 lies 1 cm to the left of the epicenter of S1. Sagittal alignment is normal. Normal vertebral body heights. Mild disc height loss at a multiple levels in the lower thoracic spine. Lumbar disc heights are normal. Lungs are clear with no airspace opacities, pulmonary edema, pleural effusion or pneumothorax. Heart size is normal. Surgical clips at the right-sided the base of the neck and in the left hemipelvis. Minimal leftward pelvic tilt with the apex of the right femoral head lies 5 mm cephalad to the apex of the left femoral head. IMPRESSION: 1. 16 degrees upper thoracic levoscoliosis with 10 degrees compensatory levocurvature in the mid thoracic spine and with separate 9 degrees lumbar levocurvature. Reviewed, dictated and finalized at location A. IMPRESSION: 1. 16 degrees upper thoracic levoscoliosis with 10 degrees compensatory levocur vature in the mid thoracic spine and with separate 9 degrees lumbar levocurvatu re.
--- OUTSIDE RECORDS SUMMARY | 2025-02-13 12:09 | XMS_ITS | Encounter Summary ---
Author Organization [facility] Address [address] [facility] [place] [address] Care Team Providers Care Spanish Translator Name Role Phone Dane Jane Primary Care Provider [phone] Reason for Visit * Reason Onset Date Comments Instructions 04/29/2020 Spoke with patiankush nt about with holding Spiriva x 7 days prior to Methacholine Challenge testing; reviewed Symbicort with hold x 2 days prior to test and Albuterol MDI withheld x 6 hours - VGall LETTERER Encounter Details Date Type Department Care Team (Late st Contact Info) Description 04/29/2020 Telephone [facility] [address] [place] [phone] Emilio Mckeon MD [address] [facility] [address] [facility] [address] Instructions (Spoke with patient about with holding Spiriva x 7 days prior to Methacholine Challenge testing; reviewed Symbicort with hold x 2 days prior to test and Albuterol MDI withheld x 6 hours - VGall LETTERER) Social History Tobacco Use Types Packs/Day Years Used Date Smoking Tobacco: Some Days Cigarettes 0.1 25.8 Started: 1999 Smokeless Tobacco: Never Comments:2-3 cigarettes a da y at most Alcohol Use Standard Drinks/Week Comments No 0 (1 standard drink = 0.6 oz pur e alcohol) Sex and Gender Information Value Date Recorded Sex Assigned at Male 04/05/2022 9:34 PM CONSULTING GROUP ANALYST Legal Sex Male 11:46 AM CDT Gender Identity Male 04/05/2022 9:34 PM CONSULTING GROUP ANALYST Sexual Orientation Straight 04/05/2022 9: 34 PM CONSULTING GROUP ANALYST COVID-19 Exposure Response Date Recorded In the last month, have you been in contact with someone who was confirmed or suspected to have Coronavirus / COVID-19? Unable to assess 04/29/2020 2:21 PM CONSULTING GROUP ANALYST documented as of this encounter Functional Status * Is person deaf or have serious hearing difficulty? Answer Date of Assessment Author No 03/19/2020 2:20 PM CONSULTING GROUP ANALYST Anaid Goncalves RN * Is person blind [...] on filedocumented in this encounter Care Teams Spanish Translator Relationship Specialty Start Date End Date Dane Jane PA [address] [place] [address] PCP - General 01/18/20 documented as of this encounter
--- OUTSIDE RECORDS SUMMARY | 2025-02-13 12:09 | XMS_ITS | Patient Health Record ---
Author Organization [facility] Address [address] [place] [address] Care Team Providers Care Engineering Program Manager Name Role Phone Wally Morales Unavailable [phone] Reason For Referral No Information Medications Medication SIG (Take, Route, Frequency, Duration) Notes Start Date End Date Status WAL-TUSSIN DM 10 MG-100 MG/5 ML ORAL SYRUP *Reorder from [employer] for eRx and Interaction Alerts* Active clonazePAM 1 MG Tablet Oral Active Ventolin HFA 108 (90 Base) MCG/ACT Aerosol Solution Inhalation Active Levothyroxine Sodium 100 MCG Tablet Oral Active PROMETHAZINE-DM 6.25 MG-15 MG/5 ML ORAL SYRUP *Reorder from [employer] for eRx and Interaction Alerts* Active Fluticasone Propionate Diskus 50 MCG/ACT Aerosol Powder Breath Activated Inhalation *Reorder from [employer] for eRx and Interaction Alerts* Active Levothyroxine Sodium 137 MCG Tablet Oral Active NICOTINE GUM 2 mg Gum Mouth/Throat *Reorder f [facility] for eRx and Interaction Alerts* Active HYDROcodone-Acetaminophen 10-325 MG Tablet Oral Active levoFLOXacin 500 MG Tablet Oral Active HYDROcodone-Acetaminophen 5-325 MG Tablet Oral Active Ibuprofen 600 MG Tablet Oral Active Ciprofloxacin HCl 500 MG Tablet Oral Active Tamsulosin HCl 0.4 MG Capsule Oral Active Propranolol HCl 10 MG Tablet Oral Active Pantoprazole Sodium 40 MG Tablet Delayed Release Oral Activ e levoFLOXacin 750 MG Tablet Oral Active Levothyroxine Sodium 125 MCG Tablet Oral Active Dicyclomine HCl 20 MG Tablet Oral Active ProAir HFA 108 (90 Base) MCG/ACT Aerosol Solution Inhalation Act joanna methylPREDNISolone 4 MG Tablet Therapy Pack Oral Active Ondansetron 8 MG Tablet Disintegrating Oral Active Ipratropium-Albuterol 0.5-2.5 (3) MG/3ML Solution Inhalation Active DEXTROMETHORPHAN-GUAIFENE SIN 10 MG-100 MG/5 ML ORAL SYRUP *Reorder from [facility] for eRx and Interaction Alerts* Active Dicyclomine HCl 10 MG Capsule Oral Active EPINEPHrine 0.3 MG/0.3ML Solution Auto-injector Injection Activ e ALPRAZolam 1 MG Tablet Oral Active Plan Of Treatment No Information
--- OUTSIDE RECORDS SUMMARY | 2025-02-13 12:09 | XMS_ITS | Clinical Summary ---
Author Organization [facility] Address [address] [place] [address] Phone Care Team Providers Care Industrial Property Appraiser Name Role Phone Unavailable Primary Care Provider Unavailabl e Social History Tobacco Use Types Packs/Day Years Used Date Smoking Tobacco: Never Assessed Sex and Gender Information Value Date Recorded Sex Assigned at Not on file Legal Sex Male 10:00 AM MEDICAL ECONOMICS CONSULTANT Gender Identity Not on file Sexual Orientation Not on file Plan of Treatment Health Maintenance Due Date Last Done Comments DTAP/TDAP/TD VACCINES (1 - Tdap) 2002 HEPATITIS B VACCINES (1 of 3 - 19+ 3-dose series) 04/18 HPV VACCINES (1 - 3-dose SCDM series) 2010 INFLUENZA VACCINE (#1) 2024 01/22/2019 Insurance MEDICAID [place]
--- OUTSIDE RECORDS SUMMARY | 2025-02-13 12:09 | XMS_ITS | Clinical Summary ---
Author Organization [facility] Address [address] [place] [address] Care Team Providers Care Fixed Wing Pilot Name Role Phone Dane Jane Primary Care Provider [phone] Source Comments [facility],non-owned Affiliates and Associated Physician Practices is amultiple site organization consisting of ambulatory clinics and hospital sitesin [place], [place], [place] and [place]. This disclosure is being madepursuant to the Care Everywhere program and may not contain all information available regarding this patient. Last updated 18.[facility] Allergies Active Allergy Reactions Criticality Noted Date [...] 04/02/2019 Immunizations Immunization Administration Dates Next Due Enval primary monoval ent 12+ yr 0.3mL Purple [...] 0.1 25.8 Started: 1999 Smokeless Tobacco: Never Tobacco Cessation:Ready [...] Sex Assigned at Male 04/05/2022 9:34 PM ASSEMBLY ROOM SUPERVISOR Legal Sex Male 11:46 AM CDT Gender Identity Male 04/05/2022 9:34 PM ASSEMBLY ROOM SUPERVISOR Sexual Orientation Straight 04/05/2022 9: 34 PM ASSEMBLY ROOM SUPERVISOR Last Filed Vital Signs Vital Sign Reading Time Taken Comments Blood Pressure 118/76 07/19/2024 3:49 PM CDT Pulse 68 07/19/2024 3:49 PM CDT Temperature 36.8 C (98.3 F) 07/19/2024 3:49 PM CDT Respiratory Rate 18 07/19/2024 3:49 PM CDT Oxygen Saturation 96% 07/19/2024 3:49 PM CDT Inhaled Oxygen Concentration 21% 05/23/2023 5 :30 PM ASSEMBLY ROOM SUPERVISOR Weight 82.1 kg (181 lb) 07/19/2024 3:49 PM CDT Height 180.3 cm (5' 11) 07/19/2024 3:49 PM CDT Body Mass Index 25.24 07/19/2024 3:49 PM CDT Plan of Treatment Health Maintenance Due Date Last Done Comments LIPID TESTING 1983 HIV SCREENING 1998 HEPATITIS C SCREENING 04/25/2001 HEPATITIS B VACCINE (1 of 3 - 19+ 3-dose series) 2002 HPV VACCINE (1 - 3-dose SCDM series) 2010 DEPRESSION SCREENING 04/18/2024 COVID-19 VACCINE (3 - 2024- season) 2024 09/29/2020, 09/05/2020 INFLUENZA VACCINE (#1) [...] this topic Medical Devices Implanted Type Area Industrial Renderer Device Identifier Shelf Expiration Date Model / Serial / Lot Stent Uret 6fr 28cm Pgtl Crv Tpr Tip Implanted:Qty: 1 on 05/05/2019 by Klaudia Cho DO at [facility] Left: Ureter fitaboratemed 03/04/2022 [id number] / / [id number] Procedures Procedure Name Priority Date/Time Associated Diagnosis Comments HEMOGLOBIN A1C Routine 01/31/2024 2:46 PM CDT Paresthesia Numbness in feet Numbness in both hands Migraine without aura and without status migrainosus, not intractable Daily headache from Last 3 Months or Most Recently Relevant to Health Maintenance Results * HEMOGLOBIN A1C (01/31/2024 2:46 PM CDT) Hemoglobin A1c 5.4 <=5.6 % 02/01/2024 9:30 AM CDT [facility] Estimated Average Glucose 108 mg/dL 02/01/2024 9:30 AM CDT [facility] Comment: HbA1c Interpretation: Normal : < 5.7% Pre-diabetes: 5.7-6.4% Diabetes: Equal to or greater than 6.5% Test results diagnostic of diabetes should be repeated for confirmation. Treatment target values recommended by ADA and other clinical organizations should be used to evaluate metabolic control in patients. Reference: [place] Diabetes Association, Standards of Care in Diabetes -2020 In patients 70 years and older consider HbA1c target range of 7.0-7.5% (Reference: Rajinder Alejandre, et al. JAMDA. 2012) The Sebia assay for the measurement of HbA1c is a National Glycohemoglobin Standardization Program (NGSP) certified method. Blood BLOOD SPECIMEN / Unknown Lab Venipuncture / Unknown 01/31/2024 2:46 PM CDT 01/31/2024 3:53 PM CDT Delmy Renee AGRICULTURAL TECHNICIAN-PIANO BU[facility] LAB - CHEMISTRY ORDERA BLES Final Result [facility] [address] [place] [address], [place] [phone] from Last 3 Months or Most Recently Relevant to Health Maintenance Insurance [facility] Advance Directives * Full Code (Latest Code Status on File) Date Activated Date Inactivated Comments 05/03/2019 4:23 PM 05/07/2019 4:38 PM Care Teams Fixed Wing Pilot Relationship Specialty Start Date End Date Dane Jane PA [address] [place] [address] PCP - General 01/18/20
--- OUTSIDE RECORDS SUMMARY | 2025-02-13 12:09 | XMS_ITS | Encounter Summary ---
Author Organization [facility] Address [address] [facility] [place] [address] Care Team Providers Care Resources Representative Name Role Phone Dane Jane Primary Care Provider [phone] Reason for Visit * Reason Onset Date Comments Order 02/22/2020 Encounter Details Date Type Department Care Team (Late st Contact Info) Description 02/22/2020 Telephone [facility] [address] [place] [id number] Ru Livingston MD [facility] [id number] Order Social History Tobacco Use Types Packs/Day Years Used Date Smoking Tobacco: Some Days Cigarettes 0.1 25.8 Started: 1999 Smokeless Tobacco: Never Comments:2-3 cigarettes a da y at most Alcohol Use Standard Drinks/Week Comments No 0 (1 standard drink = 0.6 oz pur e alcohol) Sex and Gender Information Value Date Recorded Sex Assigned at Male 04/05/2022 9:34 PM ASSURANCE ASSOCIATE Legal Sex Male 11:46 AM CDT Gender Identity Male 04/05/2022 9:34 PM ASSURANCE ASSOCIATE Sexual Orientation Straight 04/05/2022 9: 34 PM ASSURANCE ASSOCIATE documented as of this encounter Functional [...] Ru Livingston MD - 02/22/2020 2:44 PM ASSURANCE ASSOCIATE PATIENT COMMUNICATION NOTE Dear Ms. Sullivan: [...] you with. Take care, Ru Livingston MD, [facility], [facility], [facility] Director, [facility] Professor of Internal Medicine Adjunct Company Doctor of Neurology Division of Pulmonary, Critical Care, and Sleep Medicine [facility] ===View-only below this line=== ----- Message ----- From: Gwendolyn Sullivan Sent: 02/22/2020 2:16 PM ASSURANCE ASSOCIATE To: Ru Livingston MD RANCE ASSOCIATE * Telephone Encounter - Gwendolyn Sullivan - 02/22/2020 2:15 PM CST Patient is asking if he can preform an HSt instead of a PSG? RANCE ASSOCIATE documented in this encounter Plan of Treatment Not on file documented as of this encounter Visit Diagnoses Not on filedocumented in this encounter Care Teams Resources Representative Relationship Specialty Start Date End Date Dane Jane PA [address] [place] [address] PCP - General 01/18/20 documented as of this encounter
--- OUTSIDE RECORDS SUMMARY | 2025-02-13 12:09 | XMS_ITS | Encounter Summary ---
Author Organization [facility] Address [address] [place] [address] Care Team Providers Care Brush Washer Name Role Phone Dane Jane Primary Care Provider [phone] Reason for Visit * Reason Onset Date Comments Reminder Call 04/04/2024 No answer. Left voicemail. Encounter Details Date Type Department Care Team (Late st Contact Info) Description 04/04/2024 Telephone [facility] [address] [facility] [place] [address] Rd Quintero MD [address] [place] [address] PULMONARY MED [address] [place] [phone] Reminder Call (No answer. Left voicemail.) Social History Tobacco Use Types Packs/Day Years Used Date Smoking Tobacco: Some Days Cigarettes 0.1 25.8 Started: 1999 Smokeless Tobacco: Never Comments:1 pack [...] Sex Assigned at Male 04/05/2022 9:34 PM CENTRAL SERVICES TECH Legal Sex Male 11:46 AM CDT Gender Identity Male 04/05/2022 9:34 PM CENTRAL SERVICES TECH Sexual Orientation Straight 04/05/2022 9: 34 PM CENTRAL SERVICES TECH documented as of this encounter Functional Status * Is person deaf or have serious hearing difficulty? Answer Date of Assessment Author No 05/23/2023 6:08 PM Mikey Cuellar RN * Is person blind or have serious difficulty seeing? Answer Date of Assessment Author No 05/23/2023 6:08 PM CENTRAL SERVICES TECH Mikey Juárez RN * Does person have [...] appointment but no answer. Left a voicemail. RAL SERVICES TECH documented in this encounter Plan of Treatment Not on file documented as of this encounter Visit Diagnoses Not on filedocumented in this encounter Care Teams Brush Washer Relationship Specialty Start Date End Date Dane Jane PA [address] [place] [address] PCP - General 01/18/20 documented as of this encounter
--- OUTSIDE RECORDS SUMMARY | 2025-02-13 12:09 | XMS_ITS | Clinical Summary ---
Author Organization [facility] Address [address] [place] [address] Care Team Providers Care Erp Project Manager Name Role Phone Roge Izaguirre MD Unavailable [phone] Emilio Mckeon MD Unavailable [phone] Klaudia Cho DO Unavailable Dane Jane Primary Care Provider [phone] Allergies Active Allergy Reactions Criticality Noted Date [...] 06/08/2019 Assessment & Plan (06/08/2019 10:05 AM CHIEF ENTERPRISE ARCHITECT): I explained to patient I would refill the Xanax at 1 mg b.i.d. only until we can get him to see a psychiatrist. Patient needs to not use the medical marijuana while taking the Xanax. Requested records from [facility] maintenance examination 06/08/2019 Overview (06/08/2019): PMH: 06/08/2019 Last colonoscopy/cologuard: 03/2019 Last tdap: 11/10/2018 Last Prevnar/pneumovax:2019 Last Shingrix: Last eye exam: Assessment & Plan (06/08/2019 10:06 AM CHIEF ENTERPRISE ARCHITECT): PMH: 06/08/2019 Last colonoscopy/cologuard: 03/2019 Last tdap: 11/10/2018 Last Prevnar/pneumovax:2019 Last Shingrix: Last eye exam: Requested record BMI 21.0-21.9, adult 06/08/2019 Assessment & Plan (06/08/2019 10:04 AM CHIEF ENTERPRISE ARCHITECT): BMI is okay. Normal range is 18-25 and overweight is 25-30. Continue to work on eating healthy and exercising at least 150 minutes per week. Cystic fibrosis 03/21/2019 Assessment & Plan (06/08/2019 10:04 AM CHIEF ENTERPRISE ARCHITECT): Followed by pulmonary Anxiety 04/07/2018 Syncope and collapse 04/07/2018 Hypothyroid 02/10/2018 Assessment & Plan (06/08/2019 10:05 AM CHIEF ENTERPRISE ARCHITECT): Patient has been out of meds since March. Refilled meds and patient to check his labs in 6-8 weeks Irritable bowel syndrome wit h both constipation and diarrhea 02/10/2018 Assessment & Plan (06/08/2019 10:05 AM CHIEF ENTERPRISE ARCHITECT): Stable continue meds Panlobular emphysema 02/10/2018 Assessment & Plan (06/08/2019 10:05 AM CHIEF ENTERPRISE ARCHITECT): Followed by pulmonary Tobacco use 02/10/2018 Assessment & Plan (06/08/2019 10:05 AM CHIEF ENTERPRISE ARCHITECT): Quitting smoking is one of the most important things you can do for your health. Contact 8-602-CCDS-NOW or www.smokefree.gov for more information. 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 Not on file Not on file Not on file Obstetrics History Last Filed Vital Signs Vital Sign Reading Time Taken Comments Blood Pressure 116/66 03/21/2024 11:15 AM CHIEF ENTERPRISE ARCHITECT Pulse 81 03/21/2024 11:15 AM CHIEF ENTERPRISE ARCHITECT Temperature 36.8 C (98.2 F) 04/06/2023 3:08 PM CHIEF ENTERPRISE ARCHITECT Respiratory Rate 18 04/06/2023 3:08 PM CHIEF ENTERPRISE ARCHITECT Oxygen Saturation 93% 04/06/2023 3:08 PM CHIEF ENTERPRISE ARCHITECT Inhaled Oxygen Concentration - - Weight 86.5 kg (190 lb 11.2 oz) 024 11:15 AM CHIEF ENTERPRISE ARCHITECT Height 180.3 cm (5' 11) 03/21/2024 11: 15 AM CHIEF ENTERPRISE ARCHITECT Body Mass Index 26.6 03/21/2024 11:15 AM CHIEF ENTERPRISE ARCHITECT Plan of Treatment Health Maintenance Due Date [...] - Td or Tdap) 11/10/2028 Insurance [facility] Member Subscriber Plan / Payer (Ef fective 2019-Present) Name:Freddie Arellano Relation to Subscriber:Self Name:Freddie Arellano Payer ID:[id number] (NAIC) Group ID:Not on file Type:MEDICAID RISK OTHER Address: [address] [place] [address] [place] [address] [facility] Advance Directives For more information, please contact: [phone] * Full Code (Latest Code Status on File) Date Activated Date Inactivated Comments 04/05/2023 6:42 PM 04/06/2023 8:56 PM Care Teams Erp Project Manager Relationship Specialty Start Date End Date Dane Jane PA [address] [place] [address] PCP - General Family Practice 12/10/19 Roge Izaguirre MD Consulting Physician Family Medicine 05/24/19 Emilio Mckeon MD [address] [facility] [address] [place] [address] Referring Physician Internal Medicine 06/08/19 Klaudia Cho DO [address] [place] [address] Referring Physician Urology 06/08/19
--- OUTSIDE RECORDS SUMMARY | 2025-02-13 12:09 | XMS_ITS | Encounter Summary ---
Author Organization [facility] Address [address] [facility] [place] [address] Care Team Providers Care Product Owner Name Role Phone Dane Jane Primary Care Provider [phone] Reason for Visit * Reason Comments Refill Request Encounter Details Date Type Department Care Team (Late st Contact Info) Description 06/15/2021 Refill [facility] [address] [facility] [place] [phone] Emilio Mckeon MD [address] [facility] [address] DIV OF PULMONARY/[place] [address] Refill Request Social History Tobacco Use Types Packs/Day Years Used Date Smoking Tobacco: Former Cigarettes 0.1 21 2 000 - 04/18/2020 Smokeless Tobacco: Never Comments:2-3 cigarettes a da y at most Alcohol Use Standard Drinks/Week Comments No 0 (1 standard drink = 0.6 oz pur e alcohol) Sex and Gender Information Value Date Recorded Sex Assigned at Male 04/05/2022 9:34 PM ENVIRONMENTAL ENGINEERING TECHNICIAN Legal Sex Male 11:46 AM CDT Gender Identity Male 04/05/2022 9:34 PM ENVIRONMENTAL ENGINEERING TECHNICIAN Sexual Orientation Straight 04/05/2022 9: 34 PM ENVIRONMENTAL ENGINEERING TECHNICIAN documented as of this encounter Functional [...] (HCC) documented in this encounter Care Teams Product Owner Relationship Specialty Start Date End Date Dane Jane PA [address] [place] [address] PCP - General 01/18/20 documented as of this encounter
--- OUTSIDE RECORDS SUMMARY | 2025-02-13 12:09 | XMS_ITS | Encounter Summary ---
Author Organization [facility] Address [address] [place] [address] Care Team Providers Care Fuse Assembler Name Role Phone Anali Mccann APRN-CASTING HOUSE LABORER Primary Care Provider + Anali Mccann APRN-CASTING HOUSE LABORER Primary Care Provider + Dane Jane Primary Care Provider [phone] Reason for Visit * Reason Onset Date Comments Instructions 03/30/2019 Left VM message for withholding respiratory medications prior to Methacholine Challenge testing - VGall; CPFT; ASSOCIATE DIRECTOR FINANCE Encounter Details Date Type Department Care Team (Late st Contact Info) Description 03/30/2019 Telephone [facility] [address] [place] [id number] Argelia Oden RCP Instructions (Left VM message for withholding respiratory medications prior to Methacholine Challenge testing - VGall; CPFT; ASSOCIATE DIRECTOR FINANCE) Social History Tobacco Use Types Packs/Day Years Used Date Smoking Tobacco: Smoker, Current Status Unknown Cigarettes Smokeless Tobacco: Never Comments:1 pack a week Alcohol Use Standard Drinks/Week Comments No 0 (1 standard drink = 0.6 oz pur e alcohol) Sex and Gender Information Value Date Recorded Sex Assigned at Male 04/05/2022 9:34 PM MEDICARE SALES REPRESENTATIVE Legal Sex Male 11:46 AM CDT Gender Identity Male 04/05/2022 9:34 PM MEDICARE SALES REPRESENTATIVE Sexual Orientation Straight 04/05/2022 9: 34 PM MEDICARE SALES REPRESENTATIVE documented as of this encounter Plan of Treatment Not on file documented as of this encounter Visit Diagnoses Not on filedocumented in this encounter Care Teams Fuse Assembler Relationship Specialty Start Date End Date Anali Mccann APRN-CNP PCP - General 01/12/19 12/24/19 Anali Mccann APRN-CNP [address] [place] [address] PCP - General 12/25/19 01/17/20 Dane Jane PA [address] [place] [address] PCP - General 01/18/20 documented as of this encounter
--- OUTSIDE RECORDS SUMMARY | 2025-02-13 12:09 | XMS_ITS | Encounter Summary ---
Author Organization [facility] Facility Care Team Providers Care Deputy Sheriff Custody Name Role Phone Unknown, Notinfile Primary Care Provider Unavail able No, Physician Primary Care Provider [phone] Dane Tavarez MD Primary Care Provider [phone] Ro Luna Primary Care Provider [phone] Roge Izaguirre MD Unavailable +- [phone] Emilio Mckeon MD Unavailable + [phone] Klaudia Cho DO Unavailable [phone] Ro Luna Primary Care Provider [phone] Dane Jane Primary Care Provider [phone] Encounter Details Date Type Department Care Team (Latest Contact Info) Description 12/11/2017 Orders Only [facility] CLINCONV ProviderBraydon MD [address] [place] [address] Social History Tobacco Use Types Packs/Day Years Used Date Smoking Tobacco: Never Assessed Sex and Gender Information Value Date Recorded Sex Assigned at Not on file Legal Sex Male 7:33 PM REPRODUCTIVE ENDOCRINOLOGIST Gender Identity Not on file Sexual Orientation [...] COVID: Suspected 04/05/2023 04/05/2023 04/05/2023 12:57 PM REPRODUCTIVE ENDOCRINOLOGIST documented as of this encounter Care Teams Deputy Sheriff Custody Relationship Specialty Start Date End Date Unknown, Notinfile PCP - General 11/23/18 11/26/18 No, Physician PCP - General 11/27/18 04/25/19 Dane Tavarez MD PCP - General Family Medicine 04/26/19 05/23/19 Ro Luna PA [address] [place] [address] PCP - General Family Medicine 05/24/19 12/09/19 Ro Luna PA [address] [place], [place] [id number] PCP - General 11/10/18 11/22/18 Dane Jane PA [address] [place] [address] PCP - General Family Practice 12/10/19 Roge Izaguirre MD [address] [place] [address] Consulting Physician Family Medicine 05/24/19 Emilio Mckeon MD [address] [facility] [address] [place] [address] Referring Physician Internal Medicine 06/08/19 Klaudia Cho DO [address] [place] [address] Referring Physician Urology 06/08/19 documented as of this encounter
--- OUTSIDE RECORDS SUMMARY | 2025-02-13 12:09 | XMS_ITS | Clinical Summary ---
Author Organization [facility] Address [address] [place] [address] Phone Care Team Providers Care Fruit Loader Name Role Phone Dane Jane Primary Care Provider [phone] Allergies Active Allergy Reactions Criticality Noted Date [...] on file Legal Sex Male 7:58 AM LEAD ENGINEER Gender Identity Not on file Sexual [...] Insurance MEDICAID [employer] Care Teams Fruit Loader Relationship Specialty Start Date End Date Dane Jane PAC [address] [place] [address] PCP - General Physician Senior Compliance Officer 05/01/21
--- OUTSIDE RECORDS SUMMARY | 2025-02-13 12:09 | XMS_ITS | Encounter Summary ---
Author Organization [facility] Facility Care Team Providers Care Pricing Intern Name Role Phone Unknown, Notinfile Primary Care Provider Unavail able No, Physician Primary Care Provider [phone] Dane Tavarez MD Primary Care Provider [phone] Ro Luna Primary Care Provider Roge Izaguirre MD Unavailable +- [phone] Emilio Mckeon MD Unavailable + [phone] Klaudia Cho DO Unavailable [phone] Ro Luna Primary Care Provider [phone] Dane Jane Primary Care Provider [phone] Encounter Details Date Type Department Care Team (Latest Contact Info) Description 02/10/2018 Orders Only [facility] CLINCONV ProviderBraydon MD [address] [place] [address] Social History Tobacco Use Types Packs/Day Years Used Date Smoking Tobacco: Never Assessed Sex and Gender Information Value Date Recorded Sex Assigned at Not on file Legal Sex Male 7:33 PM PRIMARY CARE PHYSICIAN Gender Identity Not on file Sexual Orientation [...] COVID: Suspected 04/05/2023 04/05/2023 04/05/2023 12:57 PM PRIMARY CARE PHYSICIAN documented as of this encounter Care Teams Pricing Intern Relationship Specialty Start Date End Date Unknown, Notinfile PCP - General 11/23/18 11/26/18 No, Physician PCP - General 11/27/18 04/25/19 Dane Tavarez MD PCP - General Family Medicine 04/26/19 05/23/19 Ro Luna PA [address] [place] [address] PCP - General Family Medicine 05/24/19 12/09/19 Ro Luna PA [address] [place], [place] [id number] PCP - General 11/10/18 11/22/18 Dane Jane PA [address] [place] [address] PCP - General Family Practice 12/10/19 Roge Izaguirre MD [address] [place] [address] Consulting Physician Family Medicine 05/24/19 Emilio Mckeon MD [address] [facility] [address] [place] [address] Referring Physician Internal Medicine 06/08/19 Klaudia Cho DO [address] [place] [address] Referring Physician Urology 06/08/19 documented as of this encounter
--- OUTSIDE RECORDS SUMMARY | 2025-02-13 12:09 | XMS_ITS | Encounter Summary ---
Author Organization [facility] Facility Care Team Providers Care Plater Hot Dip Name Role Phone Unknown, Notinfile Primary Care Provider Unavail able No, Physician Primary Care Provider Dane Tavarez MD Primary Care Provider [phone] Ro Luna Primary Care Provider [phone] Roge Izaguirre MD Unavailable +- [phone] Emilio Mckeon MD Unavailable + [phone] Klaudia Cho DO Unavailable [phone] Ro Luna Primary Care Provider [phone] Dane Jane Primary Care Provider [phone] Encounter Details Date Type Department Care Team (Latest Contact Info) Description 02/21/2018 Orders Only [facility] CLINCONV ProviderBraydon MD [address] [place] [address] Social History Tobacco Use Types Packs/Day Years Used Date Smoking Tobacco: Never Assessed Sex and Gender Information Value Date Recorded Sex Assigned at Not on file Legal Sex Male 7:33 PM FOAM DISPENSER Gender Identity Not on file Sexual Orientation Not on file documented as of this encounter Plan of Treatment Not on file documented as of this encounter Procedures Procedure Name Priority Date/Time Associated Diagnosis Comments CARDIOLOGY REPORT 02/21/2018 12: 00 AM FOAM DISPENSER documented in this encounter Results * CARDIOLOGY REPORT (02/21/2018 12:00 AM FOAM DISPENSER) Anatomical Region Laterality Modality Other Narrative 02/21/2018 12:00 AM FOAM DISPENSER Ordered by an unspecified provider. us Historical Provider [facility] MICHAEL NAJERA Final Result documented in this encounter Visit Diagnoses Not on filedocumented in this encounter Additional Health Concerns Infection Onset Date Last Indicated Resolved Time COVID: Suspected 04/05/2023 04/05/2023 04/05/2023 12:57 PM FOAM DISPENSER documented as of this encounter Care Teams Plater Hot Dip Relationship Specialty Start Date End Date Unknown, Notinfile PCP - General 11/23/18 11/26/18 No, Physician PCP - General 11/27/18 04/25/19 Dane Tavarez MD PCP - General Family Medicine 04/26/19 05/23/19 Ro Luna PA [address] [place] [address] PCP - General Family Medicine 05/24/19 12/09/19 Ro Luna PA [address] [place], [place] [id number] PCP - General 11/10/18 11/22/18 Dane Jane PA [address] [place] [address] PCP - General Family Practice 12/10/19 Roge Izaguirre MD [address] [place] [address] Consulting Physician Family Medicine 05/24/19 Emilio Mckeon MD [address] [facility] [address] [place] [address] Referring Physician Internal Medicine 06/08/19 Klaudia Cho DO [address] [facility] [address] [place] [address] Referring Physician Urology 06/08/19 documented as of this encounter
== END 2025-02-13 10:37 | disposition home or self-care (01) ==
PROVIDERS: PCP Physician Assistant; Visit Provider Physician Assistant
DX: M25.511 Pain in right shoulder (principal); M41.9 Scoliosis, unspecified
CPT/HCPCS: 72082; 73030

== ENCOUNTER 2025-02-21 09:30 | Outpatient (RCR) | payer OTHER, SELFPAY ==
--- NOTE | 2025-02-04 10:05 | PCPTNOTE ---
pt did not show for today's PT eval appt.
--- NOTE | 2025-02-05 09:02 | OPREHPOC ---
Outpatient Therapy Plan of Care This is a Multidisciplinary Plan of Care that may contain components documented by all disciplines (PT, OT, and ST.) PT Problem 1 PT Problem #1 Knowledge Deficit PT Goal 1 Goal / Goal Update 1* independent with HEP Target Visit 10 PT Problem 2 PT Problem #2 Pain PT Goal 1 Goal / Goal Update 1* pt report pain rating of 6/10 at worst 2* intermittent radicular pain to bilateral elbows at worst 3* pt report headaches occur 2x/day Target Visit 10 PT Problem 3 PT Problem #3 Impaired Flexibility PT Goal 1 Goal / Goal Update 1* cervical rotation to R 45', to improve self care and mobility Target Visit 10 PT Problem 4 PT Problem #4 Impaired Strength PT Goal 1 Goal / Goal Update 1* increase scapular-thoracic strength to 4+/5 bilateral, to improve posture and position of shoulder 2* in standing, pt have shoulders in correct alignment Target Visit 10
--- NOTE | 2025-02-05 09:02 | PTOPEVAL1 ---
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 due to increase neck pain Reported Pain Level Pain Score : Self Report Additional Pain Score Comments pain range in the past week 2-10/10; tingle in neck, intermittent tingle in both hands L>R and into feet; pressure under shoulder blade and pops when move my arm up and feels like R shoulder is going to pop out of place; headaches 3-4x/day, last 1-2 hours: posterior head to forehead---meds not help increase pain: sitting and driving truck, lifting decrease pain: hot shower, hot tub is not taking any meds report with sleeping, awaken 1-2x/night, is not a good sleeper R hand dominant Assessment PT Clinical Summary Freddie has the diagnosis of cervical pain and radiculopathy, intermittent into both hands. He has a history of chronic neck and R shoulder pain/ previous dislocation of shoulder, and migraines. He has never had PT treatments for it. Currently he is not working due to neck pain. With the evaluation: he has poor standing posture of neck, shoulders and scapula, with increased thoracic flexion of spine; decreased cervical rotation to R with pain increase; cervical flexion also increases neck pain; R shoulder active ROM is WNL with popping and crepitus; weakness of bilateral thoracic-scapular musculature, R weaker than L. Skilled PT services are indicated for modalities to decrease pain and spasms; therapeutic exercises and activities to increase strength and flexibility over rgcnnaej-kejbqvia-dmwwupuv areas, with education for HEP, posture and body mechanics. Plan of Care Interventions Electrical Stimulation,Hot Pack/Cold Pack,Manual Therapy,Mechanical Traction,Patient/Caregiver Education,Therapeutic Activities,Therapeutic Exercise,Ultrasound,Other Other Interventions taping, dry needling PT Services Indicated Yes Treatment Frequency and 1-2x/wk for 10 visits Duration These treatments will address the objective and functional deficits as defined above. The patient will be advanced safely and appropriately in order for the patient to progress towards his/her prior level of function. Additional exercises will be introduced and as well as a comprehensive home exercise program upon discharge, if needed, ?to ensure carryover of functional gains achieved in the clinic. This treatment plan has been reviewed and agreement upon by the patient.
--- NOTE | 2025-02-19 10:59 | PCPTNOTE ---
Pt canceled due to transportation issues.
--- NOTE | 2025-02-26 08:27 | PCPTNOTE ---
Pt no showed visit today, LM of next appt time and day.
--- NOTE | 2025-02-28 10:28 | PCPTNOTE ---
Pt canceled due to work truck broke down and waiting for parts. Will be her next week.
--- NOTE | 2025-03-12 14:58 | OPREHPOC ---
Outpatient Therapy Plan of Care This is a Multidisciplinary Plan of Care that may contain components documented by all disciplines (PT, OT, and ST.) PT Problem 1 PT Problem #1 Knowledge Deficit PT Goal 1 Goal / Goal Update 1* independent with HEP 03-12-25 d/c pt called and canceled PT due to having surgery goals were not addressed. Target Visit 10 PT Problem 2 PT Problem #2 Pain PT Goal 1 Goal / Goal Update 1* pt report pain rating of 6/10 at worst 2* intermittent radicular pain to bilateral elbows at worst 3* pt report headaches occur 2x/day 03-12-25 d/c pt called and canceled PT due to having surgery goals were not addressed. Target Visit 10 PT Problem 3 PT Problem #3 Impaired Flexibility PT Goal 1 Goal / Goal Update 1* cervical rotation to R 45', to improve self care and mobility 03-12-25 d/c pt called and canceled PT due to having surgery goals were not addressed. Target Visit 10 PT Problem 4 PT Problem #4 Impaired Strength PT Goal 1 Goal / Goal Update 1* increase scapular-thoracic strength to 4+/5 bilateral, to improve posture and position of shoulder 2* in standing, pt have shoulders in correct alignment 03-12-25 d/c pt called and canceled PT due to having surgery goals were not addressed. Target Visit 10
--- NOTE | 2025-03-12 14:58 | PTOPDC ---
Assessment and note entered by Sylvia Gongora, PT Assessment Status Discharge - Pt Not Present ICD-10 Condition Codes (PT) Cervicalgia M54.2,Radiculopathy, cervical M54.13, Pain in right shoulder M25.511 Onset Mar 2024 Subjective Information pt canceled PT appointments, stated he was going to have surgery. Assessment PT Clinical Summary Freddie received 5 PT sessions. He did not show for 2 and called/canceled 2 appointments. Then reported he is going to have surgery. Discharge PT. The goals were not addressed. Plan of Care PT Services Indicated No
== END 2025-03-12 17:08 | disposition home or self-care (01) ==
LOC: ANHPT 09:30
PROVIDERS: PCP Physician Assistant; Visit Provider Physician Assistant
DX: M54.2 Cervicalgia (principal)
CPT/HCPCS: 97035; 97110; 97140; 97161; 97530

== ENCOUNTER 2025-03-20 13:45 | Outpatient (CLI) | payer OTHER, SELFPAY ==
--- NOTE | ~2025-03-20 | XR_ITS ---
EXAMINATION: XR hand RT min 3V, 03/20/2025 13:59 SCRAP SORTER HISTORY: PAIN IN RIGHT HAND COMPARISON: No comparisons available. Findings: Nondisplaced fracture suspected of the proximal fifth metacarpal, correlate for pain in this area. No significant degenerative changes. Soft tissues unremarkable. Impression: Possible fifth metacarpal fracture. Reviewed, dictated and finalized at location P. P SORTER Impression: Possible fifth metacarpal fracture.
--- OUTSIDE RECORDS SUMMARY | 2025-03-20 15:01 | XMS_ITS | Encounter Summary ---
Author Organization [facility] Address [address] [place] [address] Care Team Providers Care Environmental Field Technician Name Role Phone Dane Jane Primary Care Provider [phone] Reason for Visit * Reason Onset Date Comments Order 02/22/2020 Encounter Details Date Type Department Care Team (Late st Contact Info) Description 02/22/2020 Telephone [facility] [address] [place] [address] Ru Livingston MD [facility] [phone] Order Social History Tobacco Use Types Packs/Day Years Used Date Smoking Tobacco: Some Days Cigarettes 0.1 25.9 Started: 1999 Smokeless Tobacco: Never Comments:2-3 cigarettes a da y at most Alcohol Use Standard Drinks/Week Comments No 0 (1 standard drink = 0.6 oz pur e alcohol) Sex and Gender Information Value Date Recorded Sex Assigned at Male 04/05/2022 9:34 PM ANODIC OPERATOR Legal Sex Male 11:46 AM CDT Gender Identity Male 04/05/2022 9:34 PM ANODIC OPERATOR Sexual Orientation Straight 04/05/2022 9: 34 PM ANODIC OPERATOR documented as of this encounter Functional Status [...] Ru Livingston MD - 02/22/2020 2:44 PM ANODIC OPERATOR PATIENT COMMUNICATION NOTE Dear Ms. Sullivan: Please [...] you with. Take care, Ru Livingston MD, [facility], [facility], [facility], [facility] Professor of Internal Medicine Adjunct Solution Consultant of Neurology Division of Pulmonary, Critical Care, and Sleep Medicine [facility] ===View-only below this line=== ----- Message ----- From: Gwendolyn Sullivan Sent: 02/22/2020 2:16 PM ANODIC OPERATOR To: Ru Livingston MD IC OPERATOR * Telephone Encounter - Gwendolyn Sullivan - 02/22/2020 2:15 PM CST Patient is asking if he can preform an HSt instead of a PSG? IC OPERATOR documented in this encounter Plan of Treatment Upcoming Encounters Date Type Department Care Team (Late st Contact Info) Description 03/26/2025 8:30 AM ANODIC OPERATOR Office Visit [facility] [address] [place] [address], [place] [address] Kris Song MD [address] [place] [address] documented as of this encounter Visit Diagnoses Not on filedocumented in this encounter Care Teams Environmental Field Technician Relationship Specialty Start Date End Date Dane Jane PA [address] [place] [address] PCP - General 01/18/20 documented as of this encounter
--- OUTSIDE RECORDS SUMMARY | 2025-03-20 15:01 | XMS_ITS | Encounter Summary ---
Author Organization [facility] Facility Care Team Providers Care Stove Bottom Worker Name Role Phone Unknown, Notinfile Primary Care Provider Unavail able No, Physician Primary Care Provider Dane Tavarez MD Primary Care Provider [phone] Ro Luna Primary Care Provider [phone] Roge Izaguirre MD Unavailable [phone] Emilio Mckeon MD Unavailable [phone] MarquisKlaudia larsen Unavailable [phone] Ro Luna Primary Care Provider [phone] Dane Jane Primary Care Provider [phone] Encounter Details Date Type Department Care Team (Latest Contact Info) Description 02/21/2018 Orders Only [facility] CLINCONV ProviderBraydon MD [address] [place] [address] Social History Tobacco Use Types Packs/Day Years Used Date Smoking Tobacco: Never Assessed Sex and Gender Information Value Date Recorded Sex Assigned at Not on file Legal Sex Male 7:33 PM FOOTBALL PAD REPAIRER Gender Identity Not on file Sexual Orientation Not on file documented as of this encounter Plan of Treatment Not on file documented as of this encounter Procedures Procedure Name Priority Date/Time Associated Diagnosis Comments CARDIOLOGY REPORT 02/21/2018 12: 00 AM FOOTBALL PAD REPAIRER documented in this encounter Results * CARDIOLOGY REPORT (02/21/2018 12:00 AM FOOTBALL PAD REPAIRER) Anatomical Region Laterality Modality Other Narrative 02/21/2018 12:00 AM FOOTBALL PAD REPAIRER Ordered by an unspecified provider. us Historical Provider [facility] MICHAEL NAJERA Final Result documented in this encounter Visit Diagnoses Not on filedocumented in this encounter Additional Health Concerns Infection Onset Date Last Indicated Resolved Time COVID: Suspected 04/05/2023 04/05/2023 04/05/2023 12:57 PM FOOTBALL PAD REPAIRER documented as of this encounter Care Teams Stove Bottom Worker Relationship Specialty Start Date End Date Unknown, Notinfile PCP - General 11/23/18 11/26/18 No, Physician PCP - General 11/27/18 04/25/19 Dane Tavarez MD PCP - General Family Medicine 04/26/19 05/23/19 Ro Luna PA [address] [place], [place] [id number] PCP - General Family Medicine 05/24/19 12/09/19 Ro Luna PA [address] [place], [place] [id number] PCP - General 11/10/18 11/22/18 Dane Jane PA [address] [place] [address] PCP - General Family Practice 12/10/19 Roge Izaguirre MD [address] [place] [address] Consulting Physician Family Medicine 05/24/19 Emilio Mckeon MD [address] [facility] [address] [place] [address] Referring Physician Internal Medicine 06/08/19 Klaudia Cho DO [address] [place] [address] Referring Physician Urology 06/08/19 documented as of this encounter
--- OUTSIDE RECORDS SUMMARY | 2025-03-20 15:01 | XMS_ITS | Clinical Summary ---
Author Organization [facility] Address [address] [place] [address] Care Team Providers Care Manager Communication Name Role Phone Dane Jane Primary Care Provider [phone] Allergies Active Allergy Reactions Criticality Noted Date [...] 0 Active Nebulizers (VIOS AEROSOL DELIVERY SYSTEM) [facility] UTD 9 Active ipratropium-albu terol 0.5-2.5 (3) [...] flank pain 05/03/2019 Hydroureter 05/03/2019 Cystic fibrosis 03/21/2019 Overview (10/10/2019): Last Assessment & Plan: [...] Xanax. Requested records from [place] and [place] I Anxiety 04/07/2018 Syncope and collapse 04/07/2018 Tobacco use 02/10/2018 Overview (10/10/2019): Last Assessment & Plan: Quitting smoking is one of the most important things you can do for your health. Contact 8-835-HIKW-NOW or www.smokefree.gov for more information. Irritable bowel syndrome 02/10/2018 Overview (10/10/2019): Last Assessment & Plan: Stable continue meds Panlobular emphysema 02/10/2018 Overview (10/10/2019): Last Assessment & Plan: Followed [...] Date Smoking Tobacco: Every Day Cigarettes 0.3 26.9 Started: 1998 Smokeless Tobacco: Never Tobacco Cessation:Ready [...] to 49 Years) (2 of 2 - PPSV23, PCV20, or PCV21) 12/11/2017 10/16/2017 COVID-19 Vaccine (3 - 2024-2 6 season) 2024 09/29/2020, 09/05/2020 Influenza Adult (#1) 2025 02/03/2021, 01/22/2019, 02/10/2018 DTaP, Tdap and Td Vaccines ( 3 - Td or Tdap) 11/10/2028 11/10/2018, 11/10/2018 Hepatitis A Vaccines Aged Out No long er eligible based on patient's age to complete this topic Meningococcal B Vaccine Aged Out No l onger eligible based on patient's age to complete this topic Meningococcal Vaccine Aged Out No tess tommy eligible based on patient's age to complete this topic RSV Immunizations Under 20 Months Aged Out No longer eligible b ased on patient's age to complete this topic Insurance [place] Advance Directives Documents on File Type Date Recorded Patient Guest Relations Agent Expl anation Legal Documents 12/03/2021 8:29 AM [employer] Documents faxed back 12/02/21 Legal Documents 08/13/2020 11:11 AM RECVD & CMPLTD ATTY REQ. FOR HB BILLS FOR [employer] FOR [employer] Legal Documents 07/15/2020 10:09 AM RECVD & CMPLTD ATTY REQ. FOR HB BILLS FOR [employer] Care Teams Manager Communication Relationship Specialty Start Date End Date Dane Jane PA PCP - General PHYSICIAN CUFFING MACHINE OPERATOR 10/21/20
--- OUTSIDE RECORDS SUMMARY | 2025-03-20 15:01 | XMS_ITS | Clinical Summary ---
Author Organization [facility] Jose L at [facility] [place] Address [address] [place] [address] Care Team Providers Care Supervisor Opening And Picking Name Role Phone Roge Izaguirre MD Unavailable [phone] Emilio Mckeon MD Unavailable [phone] Klaudia Cho DO Unavailable Dane Jane Primary [...] 06/08/2019 Assessment & Plan (06/08/2019 10:05 AM SOFTBALL WINDER): I explained to patient I would refill the Xanax at 1 mg b.i.d. only until we can get him to see a psychiatrist. Patient needs to not use the medical marijuana while taking the Xanax. Requested records from [facility] I Health maintenance examination 06/08/2019 Overview (06/08/2019): PMH: 06/08/2019 Last colonoscopy/cologuard: 03/2019 Last tdap: 11/10/2018 Last Prevnar/pneumovax:2019 Last Shingrix: Last eye exam: Assessment & Plan (06/08/2019 10:06 AM SOFTBALL WINDER): PMH: 06/08/2019 Last colonoscopy/cologuard: 03/2019 Last tdap: 11/10/2018 Last Prevnar/pneumovax:2019 Last Shingrix: Last eye exam: Requested record BMI 21.0-21.9, adult 06/08/2019 Assessment & Plan (06/08/2019 10:04 AM SOFTBALL WINDER): BMI is okay. Normal range is 18-25 and overweight is 25-30. Continue to work on eating healthy and exercising at least 150 minutes per week. Cystic fibrosis 03/21/2019 Assessment & Plan (06/08/2019 10:04 AM SOFTBALL WINDER): Followed by pulmonary Anxiety 04/07/2018 Syncope and collapse 04/07/2018 Hypothyroid 02/10/2018 Assessment & Plan (06/08/2019 10:05 AM SOFTBALL WINDER): Patient has been out of meds since March. Refilled meds and patient to check his labs in 6-8 weeks Irritable bowel syndrome wit h both constipation and diarrhea 02/10/2018 Assessment & Plan (06/08/2019 10:05 AM SOFTBALL WINDER): Stable continue meds Panlobular emphysema 02/10/2018 Assessment & Plan (06/08/2019 10:05 AM SOFTBALL WINDER): Followed by pulmonary Tobacco use 02/10/2018 Assessment & Plan (06/08/2019 10:05 AM SOFTBALL WINDER): Quitting smoking is one of the most important things you can do for your health. Contact 0-583-BYVX-NOW or www.smokefree.gov for more information. 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 Not on file Not on file Not on file Last Filed Vital Signs Vital Sign Reading Time Taken Comments Blood Pressure 116/66 03/21/2024 11:15 AM SOFTBALL WINDER Pulse 81 03/21/2024 11:15 AM SOFTBALL WINDER Temperature 36.8 C (98.2 F) 04/06/2023 3:08 PM SOFTBALL WINDER Respiratory Rate 18 04/06/2023 3:08 PM SOFTBALL WINDER Oxygen Saturation 93% 04/06/2023 3:08 PM SOFTBALL WINDER Inhaled Oxygen Concentration - - Weight 86.5 kg (190 lb 11.2 oz) 024 11:15 AM SOFTBALL WINDER Height 180.3 cm (5' 11) 03/21/2024 11: 15 AM SOFTBALL WINDER Body Mass Index 26.6 03/21/2024 11:15 AM SOFTBALL WINDER Plan of Treatment Health Maintenance Due Date [...] Well Visit/Exam 18-64 06/08/2020 06/08/2019 Covid-19 Vaccine ( season) 2024, 09/05/2020 Influenza Vaccine (#1) 2024 , 01/22/2019, 02/10/2018 DTaP/Tdap/Td Vaccine (2 - Td or Tdap) 11/10/2028 Insurance ID[facility] [id number] [place] [address] [facility] Advance Directives For more information, please contact: [phone] * Full Code (Latest Code Status on File) Date Activated Date Inactivated Comments 04/05/2023 6:42 PM 04/06/2023 8:56 PM Care Teams Supervisor Opening And Picking Relationship Specialty Start Date End Date Dane Jane PA [address] [place] [address] PCP - General Family Practice 12/10/19 Roge Izaguirre MD Consulting Physician Family Medicine 05/24/19 Emilio Mckeon MD [address] [facility] [address] [place] [address] Referring Physician Internal Medicine 06/08/19 Klaudia Cho DO [address] [place] [address] Referring Physician Urology 06/08/19
--- OUTSIDE RECORDS SUMMARY | 2025-03-20 15:01 | XMS_ITS | Clinical Summary ---
Author Organization [facility] Address [address] [place] [address] Care Team Providers Care Adult Specialist Name Role Phone Dane Jane Primary Care Provider [phone] [facility],non-owned Affiliates and Associated Physician Practices is amultiple site organization consisting of ambulatory clinics and hospital sitesin [place], [place], [place] and [place]. This disclosure is being madepursuant to the Care Everywhere program and may not contain all information available regarding this patient. Last updated 18.[facility] Allergies Active Allergy Reactions Criticality Noted Date [...] Encounters Date Type Department Care Team Description 03/08/2025 Transcribe Orders [facility] - Centralized Scheduling [address] [place] [address] Dane Jane PA 03/01/2025 Orders Only [facility] - Orthopedics [address] [facility], [place] [address] Alda Hernandez, DEEP Scoliosis, unspecified scoliosis type, unspecified spinal region from Last 3 Months Immunizations Immunization Administration Dates Next Due [employer] primary monoval ent 12+ yr 0.3mL Purple [...] 0.1 25.9 Started: 1999 Smokeless Tobacco: Never Tobacco Cessation:Ready [...] Sex Assigned at Male 04/05/2022 9:34 PM BRUSH MATERIAL PREPARER Legal Sex Male 11:46 AM CDT Gender Identity Male 04/05/2022 9:34 PM BRUSH MATERIAL PREPARER Sexual Orientation Straight 04/05/2022 9: 34 PM BRUSH MATERIAL PREPARER Last Filed Vital Signs Vital Sign Reading Time Taken Comments Blood Pressure 118/76 07/19/2024 3:49 PM CDT Pulse 68 07/19/2024 3:49 PM CDT Temperature 36.8 C (98.3 F) 07/19/2024 3:49 PM CDT Respiratory Rate 18 07/19/2024 3:49 PM CDT Oxygen Saturation 96% 07/19/2024 3:49 PM CDT Inhaled Oxygen Concentration 21% 05/23/2023 5 :30 PM BRUSH MATERIAL PREPARER Weight 82.1 kg (181 lb) 07/19/2024 3:49 PM CDT Height 180.3 cm (5' 11) 07/19/2024 3:49 PM CDT Body Mass Index 25.24 07/19/2024 3:49 PM CDT Plan of Treatment Upcoming Encounters Date Type Department Care Team (Late st Contact Info) Description 03/26/2025 8:30 AM BRUSH MATERIAL PREPARER Office Visit [facility] - Orthopedics [address] [place] [address], [facility] [place] [address] Kris Song MD [facility] [place] [address] Health Maintenance Due Date Last Done Comments LIPID TESTING 1983 HIV SCREENING 1998 HEPATITIS C SCREENING 04/25/2001 HEPATITIS B VACCINE (1 of 3 - 19+ 3-dose series) 2002 HPV VACCINE (1 - 3-dose SCDM series) 2010 DEPRESSION SCREENING 04/18/2024 COVID-19 VACCINE ( season) 2024 09/29/2020, 09/05/2020 INFLUENZA VACCINE (#1) 2024 4, 02/03/2021, 01/22/2019, Additional history exists SCREENING FOR DIABETES 01/30/2027 4, 03/05/2020, 05/07/2019, Additional history exists DTAP/TDAP/TD VACCINES (2 - Td or Tdap) 11/10/2028 11/10/2018 ZOSTER VACCINE (1 of 2) 2033 PNEUMOCOCCAL VACCINE Completed 01/23/2024, 10/17/19 18 HIB VACCINE Aged Out No longer eligi ble based on patient's age to complete this topic MENINGOCOCCAL (Group B) VACCINE SHARED DECISION-MAKING Aged Out No longer eligible based on patient's age to complete this topic MENINGOCOCCAL GROUPS A/C/Y/W VACCINE Aged Out No longer eligible based on patient's age to complete this topic Medical Devices Implanted Type Area Speech Assistant Device Identifier Shelf Expiration Date Model / Serial / Lot Stent Uret 6fr 28cm Pgtl Crv Tpr Tip Implanted:Qty: 1 on 05/05/2019 by Klaudia Cho DO at [facility] Left: [employer] 03/04/2022 [id number] / / [id number] Procedures Procedure Name Priority Date/Time Associated Diagnosis Comments HEMOGLOBIN A1C Routine 01/31/2024 2:46 PM CDT Paresthesia Numbness in feet Numbness in both hands Migraine without aura and without status migrainosus, not intractable Daily headache from Last 3 Months or Most Recently Relevant to Health Maintenance Results * HEMOGLOBIN A1C (01/31/2024 2:46 PM CDT) Hemoglobin A1c 5.4 <=5.6 % 02/01/2024 9:30 AM CDT [facility] Estimated Average Glucose 108 mg/dL 02/01/2024 9:30 AM [facility] Comment: HbA1c Interpretation: Normal : < 5.7% Pre-diabetes: 5.7-6.4% Diabetes: Equal to or greater than 6.5% Test results diagnostic of diabetes should be repeated for confirmation. Treatment target values recommended by ADA and other clinical organizations should be used to evaluate metabolic control in patients. Reference: [place] Diabetes Association, Standards of Care in Diabetes -2020 In patients 70 years and older consider HbA1c target range of 7.0-7.5% (Reference: Rajinder Alejandre et al. JAMDA. 2012) The Sebia assay for the measurement of HbA1c is a National Glycohemoglobin Standardization Program (NGSP) certified method. Blood BLOOD SPECIMEN / Unknown Lab Venipuncture / Unknown 01/31/2024 2:46 PM CDT 01/31/2024 3:53 PM CDT [facility] CONSULTANT-DRIVER'S LICENSE REVIEWING OFFICER LAB - CHEMISTRY ORDERA BLES Final Result [facility] [address] [place] [address], [facility] [phone] from Last 3 Months or Most Recently Relevant to Health Maintenance Insurance [facility] Advance Directives * Full Code (Latest Code Status on File) Date Activated Date Inactivated Comments 05/03/2019 4:23 PM 05/07/2019 4:38 PM Care Teams Adult Specialist Relationship Specialty Start Date End Date Dane Jane PA [address] [place] [address] [facility] - General 01/18/20
--- OUTSIDE RECORDS SUMMARY | 2025-03-20 15:01 | XMS_ITS | Encounter Summary ---
Author Organization [facility] Address [address] [place] [place] [address] Care Team Providers Care Mail Inserter Name Role Phone Dane Jane Primary Care Provider [phone] Reason for Visit * Reason Onset Date Comments Instructions 04/29/2020 Spoke with patiankush nt about with holding Spiriva x 7 days prior to Methacholine Challenge testing; reviewed Symbicort with hold x 2 days prior to test and Albuterol MDI withheld x 6 hours - VGall SURGERY TECHNICIAN Encounter Details Date Type Department Care Team (Late st Contact Info) Description 04/29/2020 Telephone [facility] [address] [place] [address] Emilio Mckeon MD [address] [facility] [address] [facility] PULMONARY/[place] [address] Instructions (Spoke with patient about with holding Spiriva x 7 days prior to Methacholine Challenge testing; reviewed Symbicort with hold x 2 days prior to test and Albuterol MDI withheld x 6 hours - VGall SURGERY TECHNICIAN) Social History Tobacco Use Types Packs/Day Years Used Date Smoking Tobacco: Some Days Cigarettes 0.1 25.9 Started: 1999 Smokeless Tobacco: Never Comments:2-3 cigarettes a da y at most Alcohol Use Standard Drinks/Week Comments No 0 (1 standard drink = 0.6 oz pur e alcohol) Sex and Gender Information Value Date Recorded Sex Assigned at Male 04/05/2022 9:34 PM CROP GRAIN OR LIVESTOCK FARM MANAGER Legal Sex Male 11:46 AM CDT Gender Identity Male 04/05/2022 9:34 PM CROP GRAIN OR LIVESTOCK FARM MANAGER Sexual Orientation Straight 04/05/2022 9: 34 PM CROP GRAIN OR LIVESTOCK FARM MANAGER COVID-19 Exposure Response Date Recorded In the last month, have you been in contact with someone who was confirmed or suspected to have Coronavirus / COVID-19? Unable to assess 04/29/2020 2:21 PM CROP GRAIN OR LIVESTOCK FARM MANAGER documented as of this encounter Functional Status * Is person deaf or have serious hearing difficulty? Answer Date of Assessment Author No 03/19/2020 2:20 PM CROP GRAIN OR LIVESTOCK FARM MANAGER Anaid Goncalves RN * Is person blind or have serious difficulty seeing? Answer Date of Assessment Author No 03/19/2020 2:20 PM CROP GRAIN OR LIVESTOCK FARM MANAGER Anaid Goncalves RN * Does person have serious difficulty [...] st Contact Info) Description 03/26/2025 8:30 AM CROP GRAIN OR LIVESTOCK FARM MANAGER Office Visit [facility] - Orthopedics [address] [place] [address], [facility] [place] [address] Kris Song MD [address] [place] [address] documented as of this encounter Visit Diagnoses Not on filedocumented in this encounter Care Teams Mail Inserter Relationship Specialty Start Date End Date Dane Jane PA [address] [place] [address] PCP - General 01/18/20 documented as of this encounter
--- OUTSIDE RECORDS SUMMARY | 2025-03-20 15:01 | XMS_ITS | Encounter Summary ---
Author Organization [facility] Care Team Providers Care Contract Officer Name Role Phone Unknown, Notinfile Primary Care Provider Unavail able No, Physician Primary Care Provider Dane Tavarez MD Primary Care Provider [phone] Ro Luna Primary Care Provider [phone] Roge Izaguirre MD Unavailable [phone] Emilio Mckeon MD Unavailable [phone] MarquisKlaudia larsen Unavailable [phone] Ro Luna Primary Care Provider [phone] Dane Jane Primary Care Provider [phone] Encounter Details Date Type Department Care Team (Latest Contact Info) Description 02/10/2018 Orders Only [facility] ProviderBraydon MD [address] [place] [address] Social History Tobacco Use Types Packs/Day Years Used Date Smoking Tobacco: Never Assessed Sex and Gender Information Value Date Recorded Sex Assigned at Not on file Legal Sex Male 7:33 PM VERIFICATION LEAD Gender Identity Not on file Sexual Orientation Not on file documented as of this encounter Functional Status documented as of this encounter Plan of [...] COVID: Suspected 04/05/2023 04/05/2023 04/05/2023 12:57 PM VERIFICATION LEAD documented as of this encounter Care Teams Contract Officer Relationship Specialty Start Date End Date Unknown, Notinfile PCP - General 11/23/18 11/26/18 No, Physician PCP - General 11/27/18 04/25/19 Dane Tavarez MD PCP - General Family Medicine 04/26/19 05/23/19 Ro Luna PA [address] [place] [address] PCP - General Family Medicine 05/24/19 12/09/19 Ro Luna PA [address] [place] [address] PCP - General 11/10/18 11/22/18 Dane Jane PA [address] [place] [address] PCP - General Family Practice 12/10/19 Roge Izaguirre MD [address] [place] [address] Consulting Physician Family Medicine 05/24/19 Emilio Mckeon MD [address] [facility] [address] [place] [address] Referring Physician Internal Medicine 06/08/19 Klaudia Cho DO [address] [place] [address] [place] [address] Referring Physician Urology 06/08/19 documented as of this encounter
--- OUTSIDE RECORDS SUMMARY | 2025-03-20 15:01 | XMS_ITS | Encounter Summary ---
Author Organization [facility] Address [address] [facility] [place] [address] Care Team Providers Care Rn Gastroenterology Name Role Phone Dane Jane Primary Care Provider [phone] Reason for Visit * Reason Onset Date Comments Reminder Call 04/04/2024 No answer. Left voicemail. Encounter Details Date Type Department Care Team (Late st Contact Info) Description 04/04/2024 Telephone [facility] - Pulmonology [address] [facility], [place] [address] Rd Quintero MD [address] [place] [address] PULMONARY MED [address] [place] [address] Reminder Call (No answer. Left voicemail.) Social History Tobacco Use Types Packs/Day Years Used Date Smoking Tobacco: Some Days Cigarettes 0.1 25.9 Started: 1999 Smokeless Tobacco: Never Comments:1 pack [...] Assigned at Male 04/05/2022 9:34 PM DISASSEMBLER Legal Sex Male 11:46 AM CDT Gender Identity Male 04/05/2022 9:34 PM DISASSEMBLER Sexual Orientation Straight 04/05/2022 9: 34 PM DISASSEMBLER documented as of this encounter Functional Status * Is person deaf or have serious hearing difficulty? Answer Date of Assessment Author No 05/23/2023 6:08 PM Mikey Cuellar RN * Is person blind or have serious difficulty seeing? Answer Date of Assessment Author No 05/23/2023 6:08 PM DISASSEMBLER Mikey Juárez RN * Does person have [...] st Contact Info) Description 03/26/2025 8:30 AM DISASSEMBLER Office Visit [facility] - Orthopedics [address] [place] [address], [facility] [place] [address] Kris Song MD [address] [place] [address] documented as of this encounter Visit Diagnoses Not on filedocumented in this encounter Care Teams Rn Gastroenterology Relationship Specialty Start Date End Date Dane Jane PA [address] [place] [address] PCP - General 01/18/20 documented as of this encounter
--- OUTSIDE RECORDS SUMMARY | 2025-03-20 15:01 | XMS_ITS | Clinical Summary ---
Author Organization [facility] Address [address] [place] [address] Phone Care Team Providers Care House Fellow Name Role Phone Dane Jane Primary Care Provider [phone] Allergies Active Allergy Reactions Criticality Noted Date [...] on file Legal Sex Male 7:58 AM WHITE SIDEWALL TIRE BUFFER Gender Identity Not on file Sexual Orientation [...] Comments Hepatitis C Virus (HCV) Screening 1983 Varicella Immunization (1 of 2 - 13+ 2-dose series) 1996 Hepatitis B Immunization (1 of 3 - [...] Insurance MEDICAID [employer] Care Teams House Fellow Relationship Specialty Start Date End Date Dane Jane PAC [address] [place] [address] PCP - General Physician Interventional Radiologist 05/01/21
--- OUTSIDE RECORDS SUMMARY | 2025-03-20 15:01 | XMS_ITS | Clinical Summary ---
Author Organization [facility] Address [address] [place] [address] Phone Care Team Providers Care Digital Research Analyst Name Role Phone Unavailable Primary Care Provider Unavailabl e Social History Tobacco Use Types Packs/Day Years Used Date Smoking Tobacco: Never Assessed Sex and Gender Information Value Date Recorded Sex Assigned at Not on file Legal Sex Male 10:00 AM MARGIN ANALYST Gender Identity Not on file Sexual Orientation Not on file Plan of Treatment Health Maintenance Due Date Last Done Comments DTAP/TDAP/TD VACCINES (1 - Tdap) 2002 HEPATITIS B VACCINES (1 of 3 - 19+ 3-dose series) 04/18 HPV VACCINES (1 - 3-dose SCDM series) 2010 INFLUENZA VACCINE (#1) 2024 01/22/2019 Insurance [place]ID [place]
--- OUTSIDE RECORDS SUMMARY | 2025-03-20 15:01 | XMS_ITS | Encounter Summary ---
Author Organization [facility] Facility Care Team Providers Care Talent Recruiter Name Role Phone Unknown, Notinfile Primary Care Provider Unavail able No, Physician Primary Care Provider Dane Tavarez MD Primary Care Provider [phone] Ro Luna Primary Care Provider [phone] Roge Izaguirre MD Unavailable [phone] Emilio Mckeon MD Unavailable [phone] MarqiusKlaudia larsen Unavailable [phone] Ro Luna Primary Care Provider [phone] Dane Jane Primary Care Provider [phone] Encounter Details Date Type Department Care Team (Latest Contact Info) Description 12/11/2017 Orders Only [facility] ProviderBraydon MD [address] [place] [address] Social History Tobacco Use Types Packs/Day Years Used Date Smoking Tobacco: Never Assessed Sex and Gender Information Value Date Recorded Sex Assigned at Not on file Legal Sex Male 7:33 PM GINNER HELPER Gender Identity Not on file Sexual Orientation [...] COVID: Suspected 04/05/2023 04/05/2023 04/05/2023 12:57 PM GINNER HELPER documented as of this encounter Care Teams Talent Recruiter Relationship Specialty Start Date End Date Unknown, Notinfile PCP - General 11/23/18 11/26/18 No, Physician PCP - General 11/27/18 04/25/19 Dane Tavarez MD PCP - General Family Medicine 04/26/19 05/23/19 Ro Luna PA [address] [place] [address] PCP - General Family Medicine 05/24/19 12/09/19 Ro Luna PA [address] [place] [address] PCP - General 11/10/18 11/22/18 Dane Jane PA [address] [place] [address] PCP - General Family Practice 12/10/19 Roge Izaguirre MD [address] [place] [address] Consulting Physician Family Medicine 05/24/19 Emilio Mckeon MD [address] [facility] [address] [place] [address] Referring Physician Internal Medicine 06/08/19 Klaudia Cho DO [address] [place] [address] Referring Physician Urology 06/08/19 documented as of this encounter
--- OUTSIDE RECORDS SUMMARY | 2025-03-20 15:01 | XMS_ITS | Encounter Summary ---
Author Organization [facility] Address [address] [facility] [place] [address] Care Team Providers Care Health Care Analyst Name Role Phone Anali Mccann APRN-HORTICULTURAL AGENT Primary Care Provider + Anali Mccann APRN-HORTICULTURAL AGENT Primary Care Provider + Dane Jane Primary Care Provider [phone] Reason for Visit * Reason Onset Date Comments Instructions 03/30/2019 Left VM message for withholding respiratory medications prior to Methacholine Challenge testing - VGall; CPFT; REGIONAL DRIVER Encounter Details Date Type Department Care Team (Late st Contact Info) Description 03/30/2019 Telephone [facility] [address] [place] [address] Argelia Oden RCP Instructions (Left VM message for withholding respiratory medications prior to Methacholine Challenge testing - VGall; CPFT; REGIONAL DRIVER) Social History Tobacco Use Types Packs/Day Years Used Date Smoking Tobacco: Smoker, Current Status Unknown Cigarettes Smokeless Tobacco: Never Comments:1 pack a week Alcohol Use Standard Drinks/Week Comments No 0 (1 standard drink = 0.6 oz pur e alcohol) Sex and Gender Information Value Date Recorded Sex Assigned at Male 04/05/2022 9:34 PM ADVERTISING SOLICITOR Legal Sex Male 11:46 AM CDT Gender Identity Male 04/05/2022 9:34 PM ADVERTISING SOLICITOR Sexual Orientation Straight 04/05/2022 9: 34 PM ADVERTISING SOLICITOR documented as of this encounter Plan of Treatment Upcoming Encounters Date Type Department Care Team (Late st Contact Info) Description 03/26/2025 8:30 AM ADVERTISING SOLICITOR Office Visit [facility] - Orthopedics [address] [facility] [place] [address] Kris Song MD [facility] [place], [place] [id number] documented as of this encounter Visit Diagnoses Not on filedocumented in this encounter Care Teams Health Care Analyst Relationship Specialty Start Date End Date Anali Mccann APRN-HORTICULTURAL AGENT PCP - General 01/12/19 12/24/19 Anali Mccann APRN-HORTICULTURAL AGENT [address] [place] [address] PCP - General 12/25/19 01/17/20 Dane Jane PA [address] [place] [address] PCP - General 01/18/20 documented as of this encounter
--- OUTSIDE RECORDS SUMMARY | 2025-03-20 15:01 | XMS_ITS | Encounter Summary ---
Author Organization [facility] Health Address [address] [place] [address] Care Team Providers Care Dialysis Chief Equipment Technician Name Role Phone Dane Jane Primary Care Provider [phone] Reason for Visit * Reason Comments Refill Request Encounter Details Date Type Department Care Team (Late st Contact Info) Description 06/15/2021 Refill [facility] [address] [facility], [place] [id number] Emilio Mckeon MD [address] [facility] [address] DIV OF PULMONARY/[place] [address] Refill Request Social History Tobacco Use Types Packs/Day Years Used Date Smoking Tobacco: Former Cigarettes 0.1 21 2 000 - 04/18/2020 Smokeless Tobacco: Never Comments:2-3 cigarettes a da y at most Alcohol Use Standard Drinks/Week Comments No 0 (1 standard drink = 0.6 oz pur e alcohol) Sex and Gender Information Value Date Recorded Sex Assigned at Male 04/05/2022 9:34 PM INDUSTRIAL MAINTENANCE ELECTRICIAN Legal Sex Male 11:46 AM CDT Gender Identity Male 04/05/2022 9:34 PM INDUSTRIAL MAINTENANCE ELECTRICIAN Sexual Orientation Straight 04/05/2022 9: 34 PM INDUSTRIAL MAINTENANCE ELECTRICIAN documented as of this encounter Functional Status [...] Assessment Author No 03/19/2020 2:20 PM Anaid Mloina RN * Does person have difficulty dressing/bathing? [...] st Contact Info) Description 03/26/2025 8:30 AM INDUSTRIAL MAINTENANCE ELECTRICIAN Office Visit [facility] [address] [place] [address], [facility] [place] [address] Kris Song MD [address] [place] [id number] documented as of this encounter Visit Diagnoses Diagnosis Severe persistent asthma without complication (HCC) documented in this encounter Care Teams Dialysis Chief Equipment Technician Relationship Specialty Start Date End Date Dane Jane PA [address] [place] [address] PCP - General 01/18/20 documented as of this encounter
--- OUTSIDE RECORDS SUMMARY | 2025-03-20 15:01 | XMS_ITS | Encounter Summary ---
Author Organization [facility] Address [address] [place] [address] Care Team Providers Care Contact Assembler Name Role Phone Dane Jane Primary Care Provider [phone] Encounter Details Date Type Department Care Team (Late st Contact Info) Description 03/08/2025 Transcribe Orders [facility] Sched[facility] [address] [place] [id number] Dane Jane PA [address] [place] [address] Social History Tobacco Use Types Packs/Day Years [...] Sex Assigned at Male 04/05/2022 9:34 PM AUTOMATIC PROFILE SHAPER OPERATOR Legal Sex Male 11:46 AM CDT Gender Identity Male 04/05/2022 9:34 PM AUTOMATIC PROFILE SHAPER OPERATOR Sexual Orientation Straight 04/05/2022 9: 34 PM AUTOMATIC PROFILE SHAPER OPERATOR documented as of this encounter Functional Status * Is person deaf or have serious hearing difficulty? Answer Date of Assessment Author No 05/23/2023 6:08 PM Mikey Cuellar RN * Is person blind or have serious difficulty seeing? Answer Date of Assessment Author No 05/23/2023 6:08 PM AUTOMATIC PROFILE SHAPER OPERATOR Mikey Juárez RN * Does person have [...] Mikey Cuellar RN documented in this encounter Plan of Treatment Upcoming Encounters Date Type Department Care Team (Late st Contact Info) Description 03/26/2025 8:30 AM AUTOMATIC PROFILE SHAPER OPERATOR Office Visit [facility] [address] [place] [address], [facility] [place] [address] Kris Song MD [address] [place] [address] documented as of this encounter Visit Diagnoses Not on filedocumented in this encounter Care Teams Contact Assembler Relationship Specialty Start Date End Date Dane Jane PA [address] [place] [address] PCP - General 01/18/20 documented as of this encounter
== END 2025-03-20 13:46 | disposition home or self-care (01) ==
PROVIDERS: PCP Physician Assistant; Visit Provider Physician Assistant
DX: M79.641 Pain in right hand (principal)
CPT/HCPCS: 73130

== ENCOUNTER 2025-03-29 15:54 | Emergency (ER) | payer OTHER, SELFPAY ==
--- NOTE | ~2025-03-29 | XR_ITS ---
EXAMINATION: XR ankle RT min 3V DATE: 03/29/2025 18:27 INDICATION: Right ankle pain. No history of trauma. TECHNIQUE: 3 views were obtained. COMPARISON: None. FINDINGS: No acute bony lesions of the right ankle. No widening of ankle mortise. Articular surface of the dome of the talus is small. IMPRESSION: 1. No acute findings in the right ankle. Reviewed, dictated and finalized at location T. HOUSE ATTENDANT
--- NOTE | ~2025-03-29 | US_ITS ---
EXAMINATION: US venous doppler LE RT DATE: 03/29/2025 18:22 INDICATION: Right lower extremity pain. TECHNIQUE: Grayscale ultrasound images without and with compression and Doppler ultrasound images of the right lower extremity veins were obtained. COMPARISON: Right ankle x-ray dated 03/29/2025 FINDINGS: The visualized portions of right common femoral vein, profunda (deep) femoral vein, femoral vein, popliteal vein, peroneal veins, posterior tibial veins, and greater saphenous vein outflow are patent. IMPRESSION: 1. No deep venous thrombosis involving major veins of right lower extremity.. Reviewed, dictated and finalized at location T. 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
[2025-03-29 15:59] VITALS: BP 133/80; PULSE 87; RESP 20; TEMP 36.7; O2SAT 99
[2025-03-29 17:38] VITALS: BP 113/71; PULSE 74; RESP 20; TEMP 36.7; O2SAT 99
--- NOTE | 2025-03-29 18:35 | ED.GENADULT ---
HPI - General Adult General Chief complaint: Extremity Injury, Lower Stated complaint: concerns for blood clot r leg, ankle pain Time Seen by Provider: 03/29/25 18:00 History of Present Illness HPI narrative: Patient 39-year-old gentleman presents emergency department with chief complaint of right leg pain and aching patient states that he had some numbness in his leg and then it rolled his ankle the patient reports that his right leg has been cramping and was concerned that he may have a DVT. The patient states he has pain in his right ankle as well Related Data Home Medications ?Medication ?Instructions ?Recorded ?Confirmed ?Last Taken ?Type alprazolam 2 mg tablet 2 mg PO BID 07/09/24 Unknown History levothyroxine 137 mcg capsule 137 mcg PO DAILY 07/09/24 Unknown History naproxen 500 mg tablet 500 mg PO TID 07/09/24 Unknown History topiramate 50 mg sprinkle capsule 50 mg PO QHS 07/09/24 Unknown History Allergies Allergy/AdvReac Type Severity Reaction Status Date / Time Penicillins Allergy Unknown Unknown Verified 03/29/25 15:59 Sulfa (Sulfonamide Allergy Unknown Anaphylaxis Verified 03/29/25 15:59 Antibiotics) Review of Systems Review of Systems: A 10 system review of systems was completed on the patient and is negative except for what is stated in the HPI. Nursing and ancillary documentation was reviewed. [facility] Past Medical History Medical History Penile fracture History of thyroid cancer Arrhythmia History of IBS Thyroid disorder Chronic headaches Anxiety Asthma Surgical History Surgical History History of urologic surgery multiple; Urologist Dr Klaudia Cho Family History Family History Mother Thyroid cancer Diabetes mellitus Heart disease Thyroid disorder Grandparent Lung cancer Hypertension Diabetes mellitus Social History Social History Social History: Smoking packs per day: 0.25 Smoking cigarettes per day: 5.0 Smoking status: Unknown if ever smoked Tobacco type: cigarettes Alcohol intake: never Lack of Transportation: No Lack of Food: Never True Current Housing: I Have Housing Concerned About Future Housing: No Difficulty Paying Gas/Electric Bills: No Difficulty Paying for Meds: No Currently Unemployed: No Education: Bachelor's Degree Additional occupation/education comments: Former Exam Narrative: GENERAL: Well-appearing, well-nourished, and in no acute distress. HEAD: Normocephalic, atraumatic. EYES: PERRLA and EOMI. ENT: Nares clear, no rhinorrhea or epistaxis. Mucous membranes moist. NECK: Supple. CHEST: Clear to auscultation. No respiratory distress. HEART: Regular rate and rhythm. No murmur heard. Normal peripheral pulses. ABDOMEN: Soft, nontender, nondistended, normal active bowel sounds. EXTREMITIES: Normal range of motion tenderness to palpation of the right ankle. No edema. SKIN: Warm, dry, no rash. NEURO: No focal deficits. Alert and oriented x3. PSYCH: Normal mood and affect. Course Vital Signs Vital signs: Vital Signs Temperature 36.7 C 03/29/25 15:59 Pulse Rate 87 03/29/25 15:59 Respiratory Rate 20 03/29/25 15:59 Blood Pressure 133/80 03/29/25 15:59 Pulse Oximetry 99 03/29/25 15:59 Oxygen Delivery Room Air 03/29/25 15:59 Temperature 36.7 C 03/29/25 17:38 Pulse Rate 74 03/29/25 17:38 Respiratory Rate 20 03/29/25 17:38 Blood Pressure 113/71 03/29/25 17:38 Pulse Oximetry 99 03/29/25 17:38 Oxygen Delivery Room Air 03/29/25 15:59 MDM Differential Diagnosis Differential Diagnosis: DVT, ankle fracture, The ultrasound showed no evidence of DVT X-ray showed no evidence of fracture Imaging Data Radiologist's impression: ITS Impressions Ankle X-Ray 03/29/25 18:29 IMPRESSION: 1. No acute findings in the right ankle. Venous Doppler Study 03/29/25 18:30 IMPRESSION: 1. No deep venous thrombosis involving major veins of right lower extremity.. Discharge Plan Discharge Clinical Impression: Leg pain, right, Right ankle sprain Patient Disposition: Home Condition: Stable Instructions: Antibiotic Form, Ankle Sprain (ED), Leg Pain (ED) Additional Instructions: Please follow-up with your primary care provider. The ultrasound showed no evidence DVT and the x-ray showed no evidence of fracture Patient Language: Samoan Prescriptions: No Action levothyroxine 137 mcg capsule 137 mcg PO DAILY naproxen 500 mg tablet 500 mg PO TID alprazolam 2 mg tablet 2 mg PO BID topiramate 50 mg capsule, sprinkle 50 mg PO QHS Follow-up/Referrals: Buck,AMANDA Russo [Primary Care Provider] Time of Disposition: 18:36
[2025-03-29 19:23] VITALS: BP 119/71; PULSE 72; RESP 16; O2SAT 98
== END 2025-03-29 19:27 | disposition home or self-care (01) ==
LOC: ANHED 18:46
PROVIDERS: Emergency Provider Emergency Medicine; PCP Physician Assistant
DX: M79.604 Pain in right leg (principal); S93.401A Sprain of unspecified ligament of right ankle, initial encounter; J45.909 Unspecified asthma, uncomplicated; K58.9 Irritable bowel syndrome, unspecified; F41.9 Anxiety disorder, unspecified; F17.210 Nicotine dependence, cigarettes, uncomplicated; Z85.850 Personal history of malignant neoplasm of thyroid; X50.9XXA Other and unspecified overexertion or strenuous movements or postures, initial encounter
CPT/HCPCS: 73610; 93971; 99284